=== PATIENT | female | born 1990 | race Caucasian/White ===

== ENCOUNTER → 2017-09-26 09:40 | Outpatient (CLI) | payer BC, SELFPAY ==
[2017-09-26 12:35] LABS: AST(SGOT) 12 U/L (15-37); Alanine Aminotransfer ALT/SGPT 18 U/L (13-56); Albumin, Serum 3.9 g/dL (3.2-5.0); Alkaline Phosphatase 93 U/L (45-117); CRP 4.97 mg/L (0.0-3.0); Globulin 3.7 g/dL (2.2-4.2); Lipase 120 U/L (73-393); Protein, Total 7.6 g/dL (6.4-8.2)
[2017-09-27 16:09] LABS: Endomysial Antibody IgA Negative (Negative)
[2017-09-28 12:39] LABS: Immunoglobulin A 103 mg/dL (87-352); t-Transglutaminase IgA <2 U/mL (0-3)
== END ==
PROVIDERS: Family Provider Family Medicine; PCP Family Medicine; Visit Provider Internal Medicine Gastroenterology
DX: R10.9 Unspecified abdominal pain (principal); R11.0 Nausea
CPT/HCPCS: 36415; 80076; 82784; 83516; 83690; 86140; 86255

== ENCOUNTER → 2017-11-19 09:24 | Outpatient (CLI) | payer BC, SELFPAY ==
--- NOTE | 2017-11-19 09:26 | NM_ITS ---
CLINICAL: 67-year-old female with reported history of chronic nausea. SEMI-SOLID PHASE 99m Tc SULFUR COLLOID GASTRIC EMPTYING STUDY COMPARISON: CT of the abdomen-pelvis report of 03/08/2017 FINDINGS: The patient was administered 1.0 mCi of 99m Tc sulfur colloid mixed with oatmeal and consumed per os. Image acquisitions in the anterior-posterior projections for a total of 90 minutes. There is prompt visualization of the stomach. There is no gastroesophageal reflux identified. The T1/2 linear fit was calculated to be 42.14 minutes, (Normal: 12-56 minutes). NM/Gastric Emptying Study IMPRESSION: 1. NORMAL 99m Tc sulfur colloid semi-solid phase (oatmeal) gastric emptying imaging examination. A. There is normal and preserved semi-solid phase gastric emptying compared to normal controls with maintained first order kinetics throughout all components of the examination. (Rachel et al, J Nucl Med Tech 38: 186, 2010). Electronically Signed: Steve Garcia DO at 20:00 EDT Tel , Service support ,
== END ==
PROVIDERS: Family Provider Family Medicine; PCP Family Medicine; Visit Provider Internal Medicine Gastroenterology
DX: R11.2 Nausea with vomiting, unspecified (principal); R10.9 Unspecified abdominal pain
CPT/HCPCS: 78264; A9541

== ENCOUNTER → 2017-11-26 09:29 | Outpatient (CLI) | payer BC, SELFPAY ==
[2017-11-26 13:01] LABS: hCG Titer Quant., Serum 140 mIU/mL (<9 non-preg)
== END ==
PROVIDERS: Family Provider Family Medicine; PCP Family Medicine; Visit Provider Family Medicine
DX: Z34.90 Encounter for supervision of normal pregnancy, unspecified, unspecified trimester (principal)
CPT/HCPCS: 36415; 84702

== ENCOUNTER → 2017-12-24 21:28 | Outpatient (CLI) | payer BC, SELFPAY ==
[2017-12-24 23:22] LABS: Chlamydia Trachomatis by PCR Negative (Negative); Neisserai gonorrhoeae by PCR Negative (Negative); Probe Check PASS; Sample Adequacy Control PASS; Specimen Processing Control PASS
[2017-12-28 11:52] LABS: HPV Reflexed? NOT INDICATED
== END ==
PROVIDERS: Family Provider Family Medicine; PCP Family Medicine; Visit Provider Obstetrics & Gynecology
DX: Z12.4 Encounter for screening for malignant neoplasm of cervix (principal); Z34.90 Encounter for supervision of normal pregnancy, unspecified, unspecified trimester
CPT/HCPCS: 87086; 87088; 87186; 87491; 87591; 88175; G0145

== ENCOUNTER → 2018-01-04 11:53 | Outpatient (CLI) | payer BC, SELFPAY ==
[2018-01-04 12:37] LABS: Absolute Lymphocyte Count 1.45 X10^3/ul (0.83-4.51); Absolute Neutrophil Count 4.5 X10^3/uL (2.0-7.7); Basophil# 0.02 X10^3/uL; Basophil% 0.3 % (0-1); Eosinophil# 0.08 X10^3/uL; Eosinophils% 1.2 % (0-5); Hematocrit 40.8 % (37-47); Hemoglobin 13.8 g/dl (12.0-15.0); Lymphocyte # 1.45 X10^3/ul (4.0); Lymphocyte % 21.8 % (19-41); Mean Corp Hgb Conc 33.8 g/gl (32-36); Mean Corpuscular Hgb 29.9 pg (27.0-32.0); Mean Corpuscular Volume 88.5 fL (81-99); Monocyte# 0.59 X10^3/uL; Monocyte% 8.9 % (0-10); Neutrophil # 4.48 X10^3/uL (2.7-7.7); Neutrophil % 67.5 % (47-70); Platelet Count 271 K/mm3 (150-450); RBC Distribution Width CV 12.1 % (11.6-14.6); RBC Distribution Width SD 38.6 fl (35.1-43.9); Red Blood Count 4.61 M/mm3 (4.2-5.4); White Blood Count 6.6 K/mm3 (4.4-11.0)
[2018-01-04 12:38] LABS: POSITIVE COUNT NO; POSITIVE DIFFERENTIAL NO; POSITIVE MORPHOLOGY NO
[2018-01-04 14:00] LABS: HIV - WCH Non-Reactive (Nonreactive); Rubella IgG 37.8 IU/mL
[2018-01-05 09:08] LABS: HEPATITIS B SURFACE AG Negative (Negative)
[2018-01-11 02:28] LABS: Rapid Plasmin Reagin (RPR) NONREACTIVE (NONREACTIVE)
== END ==
PROVIDERS: Family Provider Family Medicine; PCP Family Medicine; Visit Provider Obstetrics & Gynecology
DX: Z34.90 Encounter for supervision of normal pregnancy, unspecified, unspecified trimester (principal)
CPT/HCPCS: 36415; 85025; 86592; 86703; 86762; 86850; 86900; 87340

== ENCOUNTER → 2018-01-08 10:43 | Outpatient (CLI) | payer BC, SELFPAY ==
[2018-01-08 11:15] VITALS: BP 106/72; PULSE 83; RESP 16; TEMP 37.1; O2SAT 97
[2018-01-08] MEDS: Ondansetron 4 MG/2 ML Vial IV (11:18)
[2018-01-08] MEDS: Dextrose 5%-Lactated Ringers 1,000 ML 999 ML IV (11:18)
[2018-01-08] MEDS: proMETHazine 25 MG/ML Syringe 12.5 MG IV (12:18)
== END ==
PROVIDERS: Family Provider Family Medicine; PCP Family Medicine; Visit Provider Obstetrics & Gynecology
DX: E86.0 Dehydration (principal)
CPT/HCPCS: 96361; 96374; 96375; A4216; J2405

== ENCOUNTER → 2018-01-25 14:17 | Outpatient (CLI) | payer BC, SELFPAY | PROVIDERS: Family Provider Family Medicine; PCP Family Medicine; Referring Provider Obstetrics & Gynecology; Visit Provider Obstetrics & Gynecology | DX: O23.40 Unspecified infection of urinary tract in pregnancy, unspecified trimester (principal); Z3A.00 Weeks of gestation of pregnancy not specified | CPT/HCPCS: 87086; 87088; 87186 ==

== ENCOUNTER → 2018-02-15 12:01 | Outpatient (CLI) | payer BC, SELFPAY ==
[2018-02-15] MEDS: Dextrose 5%-Lactated Ringers 1,000 ML 999 ML IV (12:23)
[2018-02-15 12:24] VITALS: BP 117/72; PULSE 114; RESP 16; TEMP 36.9; O2SAT 98; BMI 29.2
[2018-02-15] MEDS: Ondansetron 4 MG/2 ML Vial IV (12:34)
== END ==
PROVIDERS: Family Provider Family Medicine; PCP Family Medicine; Referring Provider Obstetrics & Gynecology; Visit Provider Obstetrics & Gynecology
DX: E86.0 Dehydration (principal)
CPT/HCPCS: 96361; 96374; 96375; A4216; J2405

== ENCOUNTER → 2018-04-05 12:26 | Outpatient (CLI) | payer BC, SELFPAY ==
[2018-04-05 11:56] VITALS: BMI 31.7
== END ==
PROVIDERS: Family Provider Family Medicine; PCP Family Medicine; Referring Provider Obstetrics & Gynecology; Visit Provider Obstetrics & Gynecology
DX: Z36.9 Encounter for antenatal screening, unspecified (principal)
CPT/HCPCS: 36415

== ENCOUNTER → 2018-04-27 08:05 | Outpatient (CLI) | payer BC, SELFPAY ==
[2018-04-05 11:56] VITALS: BMI 31.7
== END ==
PROVIDERS: Family Provider Family Medicine; PCP Family Medicine; Referring Provider Obstetrics & Gynecology; Visit Provider Obstetrics & Gynecology
DX: O99.89 Other specified diseases and conditions complicating pregnancy, childbirth and the puerperium (principal); Z20.821 Contact with and (suspected) exposure to Zika virus
CPT/HCPCS: 36415

== ENCOUNTER → 2018-05-06 14:22 | Outpatient (CLI) | payer BC, SELFPAY ==
[2018-05-06 14:13] VITALS: BMI 31.7
[2018-05-06 15:20] LABS: Glucose Challenge Gest 1H 50g 152 mg/dL (70-140)
[2018-05-06 16:42] LABS: Absolute Lymphocyte Count 1.41 X10^3/ul (0.83-4.51); Absolute Neutrophil Count 9.1 X10^3/uL (2.0-7.7); Basophil# 0.02 X10^3/uL; Basophil% 0.2 % (0-1); Eosinophil# 0.26 X10^3/uL; Eosinophils% 2.2 % (0-5); Hematocrit 35.6 % (37-47); Hemoglobin 11.6 g/dl (12.0-15.0); Lymphocyte # 1.41 X10^3/ul (4.0); Lymphocyte % 12.1 % (19-41); Mean Corp Hgb Conc 32.6 g/gl (32-36); Mean Corpuscular Hgb 29.7 pg (27.0-32.0); Mean Platelet Vol. 10.4 fl (6.2-12.0); Monocyte# 0.75 X10^3/uL; Monocyte% 6.4 % (0-10); Neutrophil # 9.11 X10^3/uL (2.7-7.7); Neutrophil % 78.2 % (47-70); Platelet Count 235 K/mm3 (150-450); RBC Distribution Width CV 12.8 % (11.6-14.6); RBC Distribution Width SD 42.2 fl (35.1-43.9); Red Blood Count 3.91 M/mm3 (4.2-5.4); White Blood Count 11.7 K/mm3 (4.4-11.0)
[2018-05-06 16:49] LABS: POSITIVE COUNT NO; POSITIVE DIFFERENTIAL NO; POSITIVE MORPHOLOGY NO
== END ==
PROVIDERS: Family Provider Family Medicine; PCP Family Medicine; Visit Provider Nurse Practitioner Women's Health
DX: O99.89 Other specified diseases and conditions complicating pregnancy, childbirth and the puerperium (principal); R82.71 Bacteriuria
CPT/HCPCS: 36415; 82950; 85025; 87086; 87088

== ENCOUNTER → 2018-05-17 06:57 | Outpatient (CLI) | payer BC, SELFPAY ==
[2018-05-06 14:13] VITALS: BMI 31.7
[2018-05-07 15:34] VITALS: BMI 31.7
[2018-05-17 09:06] LABS: Glucose GTT-Gestation. Fasting 75 mg/dL (<105)
[2018-05-17 09:08] LABS: Glucose GTT-Gestational 1 Hr 160 mg/dL (<190)
[2018-05-17 10:20] LABS: Glucose GTT-Gestational 2 Hr 110 mg/dL (<165)
[2018-05-17 11:08] LABS: Glucose GTT-Gestational 3 Hr 102 L (<145)
--- OUTSIDE RECORDS SUMMARY | 2018-07-21 14:04 | XMS RPT_ITS ---
:1990 Author Organization [place] Support Name Relationship Address Phone MANINDER WEBB Unavailable [address] + [place] [address] REDWOOD Unavailable [address] + [place] [address] JOZEF LE Unavailable Unavailable + MANINDER WEBB Unavailable [address] + [place] [address] REDWOOD Unavailable [address] + [place] [address] JOZEF LE Unavailable Unavailable + TRACEY MANINDER Unavailable [address] + [place] [address] REDWOOD Unavailable [address] + [place] [address] JOZEF LE Unavailable . + [place] [address] TRACEY MANINDER Unavailable [address] + [place] [address] REDWOOD Unavailable [address] + [place] [address] JOZEF LE Unavailable Unavailable + [place] [address] TRACEY MANINDER Unavailable [address] + [place] [address] REDWOOD Unavailable [address] + [place] [address] JOZEF LE Unavailable Unavailable + [place] [address] MANINDER WEBB Unavailable [address] + [place] [address] REDWOOD Unavailable [address] + [place] [address] MIMI, JOZEF Unavailable . + [place] [address] BENEDICT, SOPHIE Unavailable [address] + [place] [address] BENEDICT, MANINDER Unavailable [address] + [place] [address] REDWOOD Unavailable [address] + [place] [address] JOZEF LE Unavailable . + [place] [address] BENEDICT, MANINDER Unavailable [address] + [place] [address] REDWOOD Unavailable [address] + [place] [address] MIMI JOZEF Unavailable Unavailable + [place] [address] BENEDICT, MANINDER Unavailable [address] + [place] [address] REDWOOD Unavailable [address] + [place] [address] MIMIJOZEF Unavailable Unavailable + [place] [address] BENEDICT, MANINDER Unavailable [address] + [place] [address] REDWOOD Unavailable [address] + [place] [address] MIMIJOZEF Unavailable . + [place] [address] BENEDICT, SOPHIE Unavailable [address] + [place] [address] BENEWILFRIDCT, MANINDER Unavailable [address] + [place] [address] REDWOOD Unavailable [address] + [place] [address] MIMIJOZEF Unavailable Unavailable + BENEDICT, MANINDER Unavailable [address] + [place] [address] REDWOOD Unavailable [address] + [place] [address] MIMI JOZEF Unavailable Unavailable + BENEWILFRIDCT, MANINDER Unavailable [address] + [place] [address] REDWOOD Unavailable [address] + [place] [address] JOZEF LE Unavailable . + [place] [address] BENEDICT, MANINDER Unavailable [address] + [place] [address] REDWOOD Unavailable . + [place] [address] JOZEF LE Unavailable Unavailable + [place] [address] BENEDICT, MANINDER Unavailable [address] + [place] [address] XIOMARALISSETTEJOSUÉ Unavailable . + [place] [address] REDWOOD Unavailable / + [place] [address] BENEDICT, MANINDER Unavailable [address] + [place] [address] REDWOOD Unavailable / + [place] [address] BENEDICT, MANINDER Unavailable [address] + [place] [address] REDWOOD Unavailable / + [place] [address] BENEDICT, MANINDER Unavailable [address] + [place] [address] REDWOOD Unavailable / +/ [place] / Care Team Providers Name Role Phone ELIZABETH SALEH Attending Unavailable NANCY HARPER Referring Unavailable NO PRIMARY CAREMD Primary Care Unavailable JOSUÉ YEAGER Attending Unavailable NANCY HARPER Referring Unavailable NO PRIMARY CARE, Primary Care Unavailable LADAN ALEXANDER Attending Unavailable Nancy Harper Attending Unavailable Nancy Harper Referring Unavailable Alejandro Major Primary Care Unavailable Inez Arizmendi Attending Unavailable Pedrito, Alejandro Referring Unavailable Kyleigh, Molly Attending Unavailable Major, Alejandro Primary Care Unavailable Inez Arizmendi Attending Unavailable Kyleigh, Molly Referring Unavailable Major, Alejandro Primary Care Unavailable Vamsi Lopez Attending Unavailable Jessica, Vamsi Referring Unavailable Major, Alejandro Primary Care Unavailable Jessica, Vamsi Attending Unavailable Jessica, Vamsi Referring Unavailable Major, Alejandro Primary Care Unavailable Major, Alejandro Attending Unavailable Major, Alejandro Primary Care Unavailable Marcanthony, Nancy Attending Unavailable Major, Alejandro Referring Unavailable Major, Alejandro Primary Care Unavailable Marcanthony, Nancy Attending Unavailable Major, Alejandro Primary Care Unavailable Marcanthony, Nancy Referring Unavailable Marcanthony, Nancy Attending Unavailable Marcanthony, Nancy Referring Unavailable Major, Alejandro Primary Care Unavailable MaxJudy Attending Unavailable ANYA HOYT Referring Unavailable Major, Alejandro Primary Care Unavailable ANYA HOYT Consulting Unavailable Marcanthony, Nancy Attending Unavailable Marcanthony, Nancy Referring Unavailable Major, Alejandro Primary Care Unavailable Marcanthony, Nancy Attending Unavailable Major, Alejandro Referring Unavailable Marcanthony, Nancy Attending Unavailable Marcanthony, Nancy Referring Unavailable Major, Alejandro Primary Care Unavailable Marcanthony, Nancy Attending Unavailable Marcanthony, Nancy Referring Unavailable Major, Alejandro Primary Care Unavailable ANYA HOYT Consulting Unavailable Marcanthony, Nancy Attending Unavailable Major, Alejandro Referring Unavailable Marcanthony, Nancy Attending Unavailable Major, Alejandro Referring Unavailable Marcanthony, Nancy Attending Unavailable Marcanthony, Nancy Referring Unavailable Major, Alejandro Primary Care Unavailable PROBLEMS PROBLEMS DATE TYPE CONDITION / CODE ATTENDING STATUS SOURCE 05/06/2018 Unknown O99.89 - Other Kyleigh, Inez Active [facility] specified diseases Community and conditions Hospital complicating Repository , childbirth and the puerperium / O99.89(ICD-10) 05/06/2018 Unknown R82.71 - Kyleigh, Inez Active [facility] Bacteriuria / Community R82.71(ICD-10) Hospital Repository 05/06/2018 Unknown Z34.90 - Encounter Walton, Inez Active [facility] for supervision of Community normal , Hospital unspecified, Repository unspecified trimester / Z34.90(ICD-10) 05/06/2018 Unknown Z34.92 - Encounter Kyleigh, Inez Active [facility] for supervision of Community normal , Hospital unspecified, Repository second trimester / Z34.92(ICD-10) 05/06/2018 Unknown Z3A.27 - 27 weeks Walton, Inez Active [facility] gestation of Community / Hospital Z3A.27(ICD-10) Repository 05/06/2018 Unknown G43.009 - Migraine Walton, Inez Active [facility] without aura, not Community intractable, Hospital without status Repository migrainosus / G43.009(ICD-10) 04/12/2018 Unknown Z36.9 - Encounter Marcanthony, Active [facility] for [facility] screening, Hospital unspecified / Repository Z36.9(ICD-10) 04/05/2018 Unknown Z3A.22 - 22 weeks Marcanthony, Active [facility] gestation of [facility] / Hospital Z3A.22(ICD-10) Repository 02/26/2018 Unknown Z23 - Encounter Marcanthony, Active [facility] for immunization / [facility] Z23(ICD-10) Hospital Repository 02/26/2018 Unknown Z3A.17 - 17 weeks Marcanthony, Active [facility] gestation of [facility] / Hospital Z3A.17(ICD-10) Repository 02/15/2018 Active Other specified DULLE, LADAN Active [facility] related MELINDA Other [facility] conditions, second Repository trimester / O26.892(ICD-10) 02/15/2018 Active Unspecified DULLE, LADAN [facility] abdominal pain / MELINDA Other [facility] R10.9(ICD-10) Repository 02/15/2018 Active Nausea with DULLE, LADAN Active [facility] vomiting, MELINDA Other [facility] unspecified / Repository R11.2(ICD-10) 02/15/2018 Active Nasal congestion / DULLE, LADAN Active [facility] R09.81(ICD-10) MELINDA Other [facility] Repository 02/15/2018 Active Cough / DULLE, LADAN Active [facility] R05(ICD-10) MELINDA Other [facility] Repository 01/25/2018 Unknown O23.40 - Marcanthony, Active [facility] Unspecified [facility] infection of Hospital urinary tract in Repository , unspecified trimester / O23.40(ICD-10) 12/25/2017 Unknown Z12.4 - Encounter Marcanthony, Active [facility] for screening for [facility] malignant neoplasm Hospital of cervix / Repository Z12.4(ICD-10) 11/19/2017 Unknown R11.2 - Nausea Vamsi Lopez Active [facility] with vomiting, Community unspecified / Hospital R11.2(ICD-10) Repository 11/19/2017 Unknown R10.9 - Vamsi Lopez Active [facility] Unspecified Community abdominal pain / Hospital R10.9(ICD-10) Repository PROCEDURES PROCEDURES No Procedure Records FoundRESULTS RESULTS GESTATIONAL GTT 3HR Collected: 05/17/2018 Status: F Source: [place] 100G 7:07 AM [facility] REPOSITORY Order Comment: Is Patient Fasting? N TYPE CODE TESTS RESULT OUT OF RANGE REFERENCE UNITS LAB L501.0650 <105 mg/dL Normal GLU 75 GTT-FASTING Result Comment: GLUCOSE TOLERANCE TEST FOR Reference Interval GESTATIONAL DIABETES Fasting <105 mg/dL 1 hour <190 mg/dl 2 hour <165 mg/dl 3 hour <145 mg/dl LAB L501.0660 <190 mg/dL Normal GLU GTT- 1HR 160 LAB L501.0670 <165 mg/dL Normal GLU GTT- 2HR 110 LAB L501.0680 <145 L Normal GLU GTT- 3HR 102 Performed By: #### L500.4710 #### [facility] [address], [address] Observed: 05/06/2018 Status: F Source: [place] CULTURE, URINE 6:18 PM [facility] REPOSITORY Urine Culture Below infection level. ORGANISM 1: Mixed Gram Positive Organisms [place] Count 1000-10,000 Performed By: #### M100.0650 #### [facility] [address] [place], [address] GLUCOSE CHALLENGE GEST Collected: 05/06/2018 Status: F Source: [place] 1H 50G 2:40 PM [facility] REPOSITORY TYPE CODE TESTS RESULT OUT OF RANGE REFERENCE UNITS LAB L501.0250 70-140 mg/dL High GLU GEST 152 50g 1H Performed By: #### L501.0250 #### [facility] [address] [facility], [address] CBC W/DIFF, AUTOMATED Collected: 05/06/2018 Status: F Source: [place] 2:40 PM [facility] REPOSITORY TYPE CODE TESTS RESULT OUT OF RANGE REFERENCE UNITS LAB L100.1000 4.4-11.0 K/mm3 High WBC 11.7 LAB L100.1200 4.2-5.4 M/mm3 Low RBC 3.91 LAB L100.1300 12.0-15.0 g/dl Low HGB 11.6 LAB L100.1400 37-47 % Low HCT 35.6 LAB L100.1500 81-99 fL Normal MCV 91.0 LAB L100.1600 27.0-32.0 pg Normal MCH 29.7 LAB L100.1700 32-36 g/gl Normal MCHC 32.6 LAB L100.1810 11.6-14.6 % Normal RDW CV 12.8 LAB L100.1820 35.1-43.9 fl Normal RDW SD 42.2 LAB L100.1900 150-450 K/mm3 Normal PLT 235 LAB L100.2000 6.2-12.0 fl Normal MPV 10.4 LAB L100.2100 47-70 % High NEUT% 78.2 LAB L100.2200 19-41 % Low LY% 12.1 LAB L100.2300 0-10 % Normal MONO% 6.4 LAB L100.2400 0-5 % Normal EO% 2.2 LAB L100.2500 0-1 % Normal BASO% 0.2 LAB L100.2550 0.0-0.9 % Normal IM GRAN % 0.900 Result Comment: IG% - Immature Granulocytes (promyelocytes, myelocytes and metamyelocytes) > 1% indicates that a LEFT SHIFT is Present. LAB L100.2620 2.0-7.7 X10 3/uL High Absolute Neut 9.1 LAB L100.2720 0.83-4.51 X10 3/ul Normal Absolute Lymph 1.41 Performed By: #### L100.0100 #### [facility] [address] [place], [place], [address] SUPERVISOR FLOOR ASSEMBLY OFFICE VISIT Observed: 05/06/2018 Status: F Source: [place] REPORT 2:17 PM [facility] REPOSITORY [facility] [address] [place] [address] OFFICE VISIT Date of Service: 05/06/18 MR#: [id number] Acct: [id number] Name: SOPHIE WEBB Rep #: [id number] : 1990 Provider: JAYCEE Arizmendi Age/Sex: 27/F Location: [facility] Status: Signed with Addenda ADDENDUM by Karla Marino on 05/06/18 at 1417 OFFICE PROCEDURES Office Procedure Documentation entered by Karla Marino 05/06/18 14:17: Immunizations Boostrix Tdap Performing Provider: LESLI Murrieta Administered by: Karla Marino on 05/06/18 14:15 Dose Route Admin Location Lot Number Expiration Date NDC Insurance Defense Attorney 0.5 mL IM Right Deltoid [id number] 04/13/20 [id number] [employer] VIS Given Date VIS Publication Date 05/06/18 06/23/14 Eligibility Eligibility Date 05/06/181416 <Electronically signed by Karla Marino > Date Karla Marino cc: * Signed Intake Vital Signs05/06/18 Height 5 ft 2 in 05/06/18 Weight: 181 lb 05/06/18 Body Mass Index (BMI) 33.0 05/06/18 Blood Pressure 128/70 H Intake Visit Reasons: 26 WEEKS Bed Bug Exterminator Required: No Accompanied by: Is patient in pain?: No Allergies No Known Allergies Allergy (Verified 05/06/18 13:51) Medications docosahexanoic acid 200 mg capsule mg PO 12/24/17 [History Confirmed 05/06/18] promethazine 12.5 mg tablet 12.5 mg PO Q6H PRN #90 tab 01/08/18 [Rx Confirmed 05/06/18] Last Menstral Period: 10/29/17 Zika: Zika virus screening: Negative : No PFSH PFSH Medical History Migraines (Chronic) Family History Father Hypertension Aunt Breast cancer Grandmother Heart disease Social History Smoking Status: Current every day smoker alcohol intake: never substance use type: does not use caffeine: Yes what type of physical activity do you participate in: none seatbelt use: always do you feel safe at home: Yes additional social history: - Maninder-Carney 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 OB Visit ELISA Calculator Estimated Delivery Date 08/05/18 Based on LMP (certain) 10/29/17 Current WG 27w 0d Number 1 Expected Delivery Route/Plan Specific Issue/Plans flu vaccine: given tdap vaccine: given rhogam: NA LARC form signed: [] labor support person: Maninder pain management: epidural cut cord/dad catch: : yes PP control planned: [] discussed possible routes of delivery and associated risks: [] special requests: [] Initial Weight: 160 lb Date Weight BP Urine PrFHR FuHt Pres MoCTX DilationFetal StVisit NoProviderComments E ot v te GA G Effac lucose ed Visit Notes Visit Date: 05/06/18 No VB, LOF. Doing well Inez Arizmendi NP-Mellissa on 05/06/18 Visit Date: 04/05/18 no vb cramping Nancy Harper MD on 04/05/18 Visit Date: 02/26/18 no vb cramping low back pain Nancy Harper MD on 02/26/18 Visit Date: 01/25/18 n vb crmaping, feeling better Nancy Harper MD on 01/26/18 Visit Date: 12/24/17 No visit notes to display ACOG First Trimester First Trimester: Desire for , Alcohol, Tobacco Cessation, Illicit/Recreational Drug/Substance Use, Intimate Partner Violence, Barriers to care, Unstable Housing, Communication Barriers, Environmental/Work Hazards, Anticipated Course of Care, Toxoplasmosis Precations, Use of Any medications, Sexual activity, Exercise, Dental Care, Sauna/Hot tub use, Seat Belt use, Childbirth classes/Hospital facilities, , Travel, Indications for US and Screening for Aneuploidy Diagnostics Diagnostics Labs Blood Type A POSITIVE 01/04/18 Antibody Screen NEGATIVE 01/04/18 Hct 40.8 % (37-47) 01/04/18 Hgb 13.8 g/dl (12.0-15.0) 01/04/18 Rubella IgG Antibody 37.8 IU/mL 01/04/18 RPR NONREACTIVE (NONREACTIVE) 01/04/18 Hep Bs Antigen Negative (Negative) 01/04/18 Chlam trachomat DNA PCR Negative (Negative) 12/24/17 N.gonorrhoeae DNA (PCR) Negative (Negative) 12/24/17 Miscellaneous Test 04/27/18 Details: HIV: Urine Culture: Sequential Screen: NIPT Screen: Results [id number] Office Urine Glucose Negative Last Edit by Karla Marino on 05/06/18 14:05 Office Urine Protein Negative Last Edit by Karla Marino on 05/06/18 14:05 Assessment AND Plan Problems 1. Normal in second trimester Z34.92 PRR ELISA 08/05/18 girl pedro Maninder 2. 27 weeks gestation of Z3A.27 NIPT negative. carrier screening declined. NTD screening ordered. Anatomy US normal. AFP negative 3. Asymptomatic bacteriuria during in first trimester O99.89; R82.71 x2, s/p macrobid. 4. Migraine without aura and without status migrainosus, not intractable G43.009 Plan Orders placed: 28 week labs, tdap, urine culture Reviewed of labor precautions, movement/kick counts ACOG trimester education reviewed and updated See problem list details for updated plan of care Gestational age appropriate handout given RTO: 3 weeks Orders Orders: Coding Level of Care Code OB Routine Diagnoses Normal in second trimester Z34.92 Trimester: second trimester 27 weeks gestation of Z3A.27 Weeks of gestation: 27 weeks Asymptomatic bacteriuria during in first trimester O99.89; R82.71 Migraine without aura and without status migrainosus, not intractable G43.009 Migraine type: without aura Status migrainosus presence: without status migrainosus Intractability: not intractable 05/06/18 1414 <Electronically signed by Inez BALLESTEROS> Date Inez BALLESTEROS Cosigner Signature: Date (if applicable) CC: MISCELLANEOUS LAB Collected: 04/27/2018 Status: F Source: [place] PROCEDURE 8:12 AM [facility] REPOSITORY Order Comment: Comments: [id number] Zika Virus Comprehensive Profile, JAYMIE, Comments: [id number] Zika virus comprehensive serum and urine Test(s) Ordered: [id number] Zika Virus Comprehensive Profile, JAYMIE, TYPE CODE TESTS RESULT OUT OF RANGE REFERENCE UNITS LAB L801.1541 Normal [facility] LAB TEST Result Comment: TEST RESULT LIMITS Zika Virus JAYMIE Conprehensive Zika Virus JAYMIE, Serum Negative Negative Zika Virus JAYMIE, Urine Negative Negative TESTING PERFORMED AT [facility]. ORIGINAL REPORT ON FILE IN LAB CONTAINS ADDITIONAL TEST SITE INFORMATION. Performed By: #### L801.1541 #### [facility] [address] [place], [place], [address] MISCELLANEOUS LAB Collected: 04/05/2018 Status: F Source: [place] PROCEDURE 12:30 PM [facility] REPOSITORY Order Comment: Comments: MSAFP [id number] SER/RT Test(s) Ordered: MSAFP [id number] SER/RT TYPE CODE TESTS RESULT OUT OF RANGE REFERENCE UNITS LAB L801.1541 Normal [facility] LAB TEST Result Comment: TEST RESULT UNITS REF INTERVAL AFP, Serum, Open Spina Bifida Results Report Test Results: *Screen Negative* Gest. Age on Collection Date 22.6 weeks Gestat. Age Based On As provided Recalculations are not recommended when gestational dating by LMP and ultrasound are within 10 days. M[age] ELISA 26.7 yr Race Weight 173 lbs Insulin Dep Diabetes Not provided. Multiple Gestation No AFP Value 62.3 ng/mL AFP MoM 0.94 OSBR [place] 1 [place] [id number] Interpretation Interpretation: Screen Negative This result is screen negative for OSB. The AFP MoM calculated is based on the gestational age provided. MS-AFP can identify up to 80% of open neural tube defects. Closed neural tube defects and some open defects may not be detected by this test. This test does not screen for Down Syndrome or Trisomy 18. If screening for Down Syndrome or Trisomy 18 is desired, contact Genetic Customer Services to discuss available options. The [place] [employer] recommends amniocentesis be offered to women age 35 and older. Comment: Coleen Dodge, Ph.D., [facility] Principal Genetics Rn Field Case Manager References: Available Upon Request. Multiples Of Median Cutoffs For AFP Elevations Hoover 2.5 Black 2.8 IDD 2.0 Twins 4.5 Abbreviation Definitions IDD - Insulin Dep Diabetes OSBR - Open Spina Bifida Risk For further inquiries contact [facility] Services at [phone]. TESTING PERFORMED AT [facility]. ORIGINAL REPORT ON FILE IN LAB CONTAINS ADDITIONAL TEST SITE INFORMATION. Performed By: #### L801.1541 #### [facility] [address] [place], [place], [address] SUPERVISOR FLOOR ASSEMBLY OFFICE VISIT Observed: 04/05/2018 Status: F Source: [place] REPORT 12:10 PM [facility] REPOSITORY [facility] [address] [place] [address] OFFICE VISIT Date of Service: 04/05/18 MR#: [id number] Acct: [id number] Name: SOPHIE WEBB Rep #: [id number] : 1990 Provider: Nancy Harper MD Age/Sex: 27/F Location: [facility] Status: Signed Intake Vital Signs04/05/18 Height 5 ft 2 in 04/05/18 Weight: 173 lb 8 oz 04/05/18 Body Mass Index (BMI) 31.7 04/05/18 Blood Pressure 120/64 Intake Visit Reasons: 22 weeks Bed Bug Exterminator Required: No Is patient in pain?: No Allergies No Known Allergies Allergy (Verified 04/05/18 11:57) Medications docosahexanoic acid 200 mg capsule mg PO 12/24/17 [History Confirmed 04/05/18] promethazine 12.5 mg tablet 12.5 mg PO Q6H PRN #90 tab 01/08/18 [Rx Confirmed 04/05/18] Last Menstral Period: 10/29/17 Zika: Zika virus screening: Negative : No Nurse's Note: Pt. states she has been coughing and now has green drainage. She also states that she is going on a cruise before her next appt. which is out of the country and to [place]. 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 OB Visit ELISA Calculator Estimated Delivery Date 08/05/18 Based on LMP (certain) 10/29/17 Current WG 22w 4d Number 1 Expected Delivery Route/Plan Specific Issue/Plans flu vaccine: given tdap vaccine: [] rhogam: [] LARC form signed: [] labor support person: [] pain management: [] cut cord/dad catch: [] : [] PP control planned: [] discussed possible routes of delivery and associated risks: [] special requests: [] Initial Weight: 160 lb Date Weight BP Urine PrFHR FuHt Pres MoCTX DilationFetal StVisit NoProviderComments E ot v te GA G Effac lucose ed Visit Notes Visit Date: 04/05/18 no vb cramping Nancy Harper MD on 04/05/18 Visit Date: 02/26/18 no vb cramping low back pain Nancy Harper MD on 02/26/18 Visit Date: 01/25/18 n vb crmaping, feeling better Nancy Harper MD on 01/26/18 Visit Date: 12/24/17 No visit notes to display ACOG First Trimester First Trimester: Desire for , Alcohol, Tobacco Cessation, Illicit/Recreational Drug/Substance Use, Intimate Partner Violence, Barriers to care, Unstable Housing, Communication Barriers, Environmental/Work Hazards, Anticipated Course of Care, Toxoplasmosis Precations, Use of Any medications, Sexual activity, Exercise, Dental Care, Sauna/Hot tub use, Seat Belt use, Childbirth classes/Hospital facilities, , Travel, Indications for US and Screening for Aneuploidy Diagnostics Diagnostics Labs Blood Type A POSITIVE 01/04/18 Antibody Screen NEGATIVE 01/04/18 Hct 40.8 % (37-47) 01/04/18 Hgb 13.8 g/dl (12.0-15.0) 01/04/18 Rubella IgG Antibody 37.8 IU/mL 01/04/18 RPR NONREACTIVE (NONREACTIVE) 01/04/18 Hep Bs Antigen Negative (Negative) 01/04/18 Chlam trachomat DNA PCR Negative (Negative) 12/24/17 N.gonorrhoeae DNA (PCR) Negative (Negative) 12/24/17 Miscellaneous Test 01/04/18 Details: HIV: Urine Culture: Sequential Screen: NIPT Screen: Results [id number] Office Urine Glucose Negative Last Edit by Suni Trinh on 04/05/18 11:56 Office Urine Protein Negative Last Edit by Suni Trinh on 04/05/18 11:56 Assessment AND Plan Problems 1. Asymptomatic bacteriuria during in first trimester O99.89; R82.71 x2, s/p macrobid. 2. 22 weeks gestation of Z3A.22 NIPT negative. carrier screening declined. NTD screening ordered. Anatomy US normal 3. Migraine without aura and without status migrainosus, not intractable G43.009 4. Normal in second trimester Z34.92 PRR ELISA 08/05/18 girl pedro Maninder Plan ACOG trimester education reviewed and updated. see problem list details for updated plan management information and see below for orders placed at this visit. [place] appropriate handout given. Orders Orders: Coding Level of Care Code OB Routine Diagnoses Asymptomatic bacteriuria during in first trimester O99.89; R82.71 22 weeks gestation of Z3A.22 Weeks of gestation: 22 weeks Migraine without aura and without status migrainosus, not intractable G43.009 Migraine type: without aura Status migrainosus presence: without status migrainosus Intractability: not intractable Normal in second trimester Z34.92 Trimester: second trimester 04/05/18 1210 <Electronically signed by Nancy Harper MD> Date Nancy Harper MD Cosigner Signature: Date (if applicable) CC: SUPERVISOR FLOOR ASSEMBLY OFFICE VISIT Observed: 02/26/2018 Status: F Source: [facility] REPORT 4:17 PM [facility] [address] [place] [address] OFFICE VISIT Date of Service: 02/26/18 MR#: [id number] Acct: [id number] Name: SOPHIE WEBB Rep #: [id number] : 1990 Provider: Nancy Harper MD Age/Sex: 27/F Location: [facility] Status: Signed Intake Vital Signs02/26/18 Height 5 ft 2 in 02/26/18 Weight: 164 lb 02/26/18 Body Mass Index (BMI) 29.9 02/26/18 Blood Pressure 114/70 Intake Visit Reasons: 17 weeks Chief Complaint: est ob Bed Bug Exterminator Required: No Is patient in pain?: No Allergies No Known Allergies Allergy (Verified 02/26/18 15:50) Medications docosahexanoic acid 200 mg capsule mg PO 12/24/17 [History Confirmed 02/26/18] promethazine 12.5 mg tablet 12.5 mg PO Q6H PRN #90 tab 01/08/18 [Rx Confirmed 02/26/18] nitrofurantoin monohydrate/macrocrystals 100 mg capsule 100 mg PO BID #14 cap 01/28/18 [Rx Confirmed 02/26/18] Last Menstral Period: 10/29/17 Zika: Zika virus screening: Negative : No PFSH PFSH Medical History Migraines (Chronic) Family History Father Hypertension Aunt Breast cancer Grandmother Heart disease Social History Smoking Status: Current every day smoker alcohol intake: never substance use type: does not use caffeine: Yes what type of physical activity do you participate in: none seatbelt use: always do you feel safe at home: Yes additional social history: - Maninder-[employer] 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 OB Visit ELISA Calculator Estimated Delivery Date 08/05/18 Based on LMP (certain) 10/29/17 Current WG 17w 1d Number 1 Expected Delivery Route/Plan Initial Weight: Not Recorded Date Weight BP Urine PrFHR FuHt Pres MoCTX DilationFetal StVisit NoProviderComments E ot v te GA G Effac lucose ed Visit Notes Visit Date: 02/26/18 no vb cramping low back pain Nancy Harper MD on 02/26/18 Visit Date: 01/25/18 n vb crmaping, feeling better Nancy Harper MD on 01/26/18 Visit Date: 12/24/17 No visit notes to display ACOG First Trimester First Trimester: Desire for , Alcohol, Tobacco Cessation, Illicit/Recreational Drug/Substance Use, Intimate Partner Violence, Barriers to care, Unstable Housing, Communication Barriers, Environmental/Work Hazards, Anticipated Course of Care, Toxoplasmosis Precations, Use of Any medications, Sexual activity, Exercise, Dental Care, Sauna/Hot tub use, Seat Belt use, Childbirth classes/Hospital facilities, , Travel, Indications for US and Screening for Aneuploidy Diagnostics Diagnostics Labs Blood Type A POSITIVE 01/04/18 Antibody Screen NEGATIVE 01/04/18 Hct 40.8 % (37-47) 01/04/18 Hgb 13.8 g/dl (12.0-15.0) 01/04/18 Rubella IgG Antibody 37.8 IU/mL 01/04/18 RPR NONREACTIVE (NONREACTIVE) 01/04/18 Hep Bs Antigen Negative (Negative) 01/04/18 Chlam trachomat DNA PCR Negative (Negative) 12/24/17 N.gonorrhoeae DNA (PCR) Negative (Negative) 12/24/17 Miscellaneous Test 01/04/18 Details: HIV: Urine Culture: Sequential Screen: NIPT Screen: Office Meds Flucelvax Quad 9685-4495 (PF) Performing Provider: Nancy Harper MD Administered by: Monet Goel on 02/26/18 15:59 Dose Route Admin Location Lot Number Expiration Date NDC Insurance Defense Attorney 60 mcg IM left arm [id number] 10/27/18 26218-178-57 SEQIRUS Assessment AND Plan Problems 1. Asymptomatic bacteriuria during in first trimester O99.89; R82.71 x2, s/p macrobid. 2. 17 weeks gestation of Z3A.17 NIPT negative. carrier screening declined. NTD screening ordered 3. Normal in second trimester Z34.92 PRR ELISA 08/05/18 girl Maninder 4. Migraine without aura and without status migrainosus, not intractable G43.009 Plan ACOG trimester education reviewed and updated. see problem list details for updated plan management information and see below for orders placed at this visit. GA appropriate handout given. Orders Orders: Medications Discontinued: Flucelvax Quad 5280-7716 (PF) (flu vac qs 2018(4 yr60 mcg (0.5 mL) IM ONCE 1 mL 0RF NS Z23 up)CD(PF)) Discontinued Reason: Office Medicat ion has been Documented as given Coding Level of Care Code OB Routine Diagnoses Asymptomatic bacteriuria during in first trimester O99.89; R82.71 17 weeks gestation of Z3A.17 Weeks of gestation: 17 weeks Normal in second trimester Z34.92 Trimester: second trimester Migraine without aura and without status migrainosus, not intractable G43.009 Migraine type: without aura Status migrainosus presence: without status migrainosus Intractability: not intractable 02/26/18 1617 <Electronically signed by Nancy Harper MD> Date Nancy Harper MD Cosigner Signature: Date (if applicable) CC: US PREG TRANSABD >14 Observed: 02/15/2018 Status: F Source: [facility] 8:57 PM CLINIC OTHER CAMPUS REPOSITORY * * *Final Report* * * DATE OF EXAM: Feb 15 2018 8:57PM U 1036 - US PREG TRANSABD >14 WEEKS LTD / PROCEDURE REASON: Pelvic pain, positive beta-HCG, loan review manager etiol suspected * * * * Physician Interpretation * * * * PROCEDURE: US PREG TRANSABD >14 WEEKS LTD INDICATION: Pelvic pain, positive beta-HCG, loan review manager etiol suspected TECHNIQUE: Multiple sonographic images of the gravid uterus were obtained and stored in a permanent archive. COMPARISON: None. FINDINGS: The uterus measures 14.5 x 7.4 x 10.9 cm. There is a single intrauterine gestational sac with a single fetus. The fetus is in the cephalic position. Placenta is fundal. Amniotic fluid volume is normal with an JUAN of 8.1 cm. heart rate is detected at 153 bpm. measurements correlate with a gestational age of 15 weeks and 4 days +/- 1 week. anatomic survey was not performed. Right maternal ovary contains an 11 mm cyst and demonstrates flow. Right maternal ovary was not identified. No adnexal masses or fluid collections. IMPRESSION: Single living intrauterine fetus with an estimated gestational age of 15 weeks and 4 days. Senior Account Director: ROSEMARY Transcribe Date/Time: Feb 15 2018 9:18P Dictated by : KYRA DÍAZ MD This examination was interpreted and the report reviewed and electronically signed by: KYRA DÍAZ MD on Feb 15 2018 9:21PM EST [id number] XR CHEST 2V FRONTAL/LAT Observed: 02/15/2018 Status: F Source: [facility] 7:58 PM CLINIC OTHER CAMPUS REPOSITORY * * *Final Report* * * DATE OF EXAM: Feb 15 2018 7:58PM MDX [id number] - XR CHEST 2V FRONTAL/LAT / PROCEDURE REASON: Cough, new onset * * * * Physician Interpretation * * * * EXAMINATION: CHEST RADIOGRAPH (2 VIEW FRONTAL and LATERAL) CLINICAL HISTORY: Cough, new onset, MQ: XC2_5 Comparison: None RESULT: Lines, tubes, and devices: None. Lungs and pleura: No consolidation. No lung mass. No pleural effusion. Cardiomediastinal silhouette: Normal cardiomediastinal silhouette. Other: No bony abnormalities. IMPRESSION: No acute radiographic abnormality. Senior Account Director: PSCJake Transcribe Date/Time: Feb 15 2018 8:01P Dictated by : PHILIP FLOWERS MD This examination was interpreted and the report reviewed and electronically signed by: PHILIP FLOWERS MD on Feb 15 2018 8:02PM EST [id number] RAPID PCR ASSAY FLU Collected: 02/15/2018 Status: F Source: [facility] 7:[address] [facility] OTHER CAMPUS REPOSITORY TYPE CODE TESTS RESULT OUT OF REFERENCE UNITS RANGE LAB FLRSRC Nasopharyngeal Specimen Swab Source LAB PCRFLA Negative for Influenza A Influenza A by RT PCR PCR LAB PCRFLB Negative for Influenza B Influenza B by RT PCR PCR Performed By: #### FLUPCR #### [facility] [address] [facility] [phone] ED NOTE Observed: 02/15/2018 Status: COMPLETED Source: [place] 7:[address] [facility] OTHER CAMPUS REPOSITORY HNO ID: [id number] Author: Cesia (Rn) ZAFAR Jett Service: (none) Author Type: Registered Nurse Type: ED Notes Filed: 02/15/2018 7:37 PM Note Text: Heart tones 148bpm CBC AND DIFFERENTIAL Collected: 02/15/2018 Status: F Source: [facility] 7:[address] [facility] OTHER CAMPUS REPOSITORY TYPE CODE TESTS RESULT OUT OF REFERENCE UNITS RANGE LAB WBC 3.70-11.00 k/uL WBC 9.63 LAB RBC 3.90-5.20 m/uL RBC 3.98 LAB HGB 11.5-15.5 g/dL Hemoglobin 12.2 LAB HCT 36.0-46.0 % Low Hematocrit 34.6 LAB MCV 80.0-100.0 fL MCV 86.9 LAB MCH 26.0-34.0 pG MCH 30.7 LAB MCHC 30.5-36.0 g/dL MCHC 35.3 LAB RDWCV 11.5-15.0 % RDW-CV 12.1 LAB PLTCT 150-400 k/uL Platelet Count 190 LAB MPV 9.0-12.7 fL MPV 10.0 LAB ANEUT % Neut% 90.0 LAB AANEUT 1.45-7.50 k/uL Abs Neut High 8.67 LAB ALYMP % Lymph% 4.4 LAB AALYMP 1.00-4.00 k/uL Low Abs Lymph 0.42 LAB AMONO % Converse% 3.7 LAB AAMONO <0.87 k/uL Abs Converse 0.36 LAB AEOS % Eosin% 1.9 LAB AAEOS <0.46 k/uL Abs Eosin 0.18 LAB ABASO % Baso% 0.0 LAB AABASO <0.11 k/uL Abs Baso <0.03 Performed By: #### CBCDIF, CMP, LIPA, MG1 #### [facility] [address] [place] [address] COMP METABOLIC PANEL Collected: 02/15/2018 Status: F Source: [facility] 7:20 PM CLINIC OTHER CAMPUS REPOSITORY TYPE CODE TESTS RESULT OUT OF REFERENCE UNITS RANGE LAB TP 6.3-8.0 g/dL Low Protein, Total 6.2 LAB ALB 3.9-4.9 g/dL Low Albumin 3.4 LAB CA 8.5-10.2 mg/dL Calcium, Total 9.1 LAB TBIL 0.2-1.3 mg/dL Bilirubin, Total 0.3 LAB ALKP 34-123 U/L Alkaline Phosphatase 68 LAB AST 13-35 U/L AST 13 LAB GLU 74-99 mg/dL Glucose 94 Result Comment: The [place] Diabetes [employer] (ADA) provides guidance for cutoff values for fasting glucose and random glucose. The ADA defines fasting as no caloric intake for at least 8 hours. Fas ting plasma glucose results between 100 to 125 mg/dL indicate increased risk for diabetes (prediabetes). Fasting plasma glucose results greater than or equal to 126 mg/dL meet the criteria for diagnosis of diabetes. In the absence of unequivocal hyperglycemia, results should be confirmed by repeat testing. In a patient with classic symptoms of hyperglycemia or hyperglycemic crisis, random plasma glucose results greater than or equal to 200 mg/dL meet the criteria for diagnosis of diabetes. Reference: Standards of Medical Care in Diabetes 2016, [place] [employer] Association. Diabetes Care. 2016.39(Suppl 1). LAB BUN 7-21 mg/dL BUN Low 6 LAB CRET 0.58-0.96 mg/dL Creatinine 0.60 LAB NA 136-144 mmol/L Sodium Low 132 LAB K 3.7-5.1 mmol/L Potassium Low 3.6 LAB CL 97-105 mmol/L Chloride 102 LAB CO2 22-30 mmol/L CO2 Low 21 LAB AGAP 9-18 mmol/L Anion Gap 9 LAB ALT 7-38 U/L ALT 10 LAB GFRAA eGFR- Amer. >60 LAB GFRNAA . eGFR-All Other Races >60 Result Comment: eGFR (Estimated GFR) Units of measure: mL/min/1.73 meters squared eGFR is derived from the reexpressed MDRD Study equation using the following parameters: serum creatinine, age, gender and race. The creatinine assay has been calibrated to be traceable to IDMS. An eGFR <60 mL/min/1.73m2 for >3 months is consistent with chronic kidney disease. Refer to KDOQI guidelines for clinical interpretation. In patients with unstable renal function, e.g. those with acute kidney injury, the eGFR may not accurately reflect actual GFR. Performed By: #### CBCDIF, CMP, LIPA, MG1 #### [facility] [address] [place] [address] LIPASE Collected: 02/15/2018 Status: F Source: [facility] 7:20 PM CLINIC OTHER CAMPUS REPOSITORY TYPE CODE TESTS RESULT OUT OF REFERENCE UNITS RANGE LAB LIPA 16-61 U/L Lipase 23 Performed By: #### CBCDIF, CMP, LIPA, MG1 #### [facility] [address] [place] [address] MAGNESIUM Collected: 02/15/2018 Status: F Source: [place] 7:[address] [facility] OTHER CAMPUS REPOSITORY TYPE CODE TESTS RESULT OUT OF REFERENCE UNITS RANGE LAB MG 1.7-2.3 mg/dL Low Magnesium 1.6 Performed By: #### CBCDIF, CMP, LIPA, MG1 #### [facility] [address] [facility] [phone] HCG, QUANTITATIVE BL Collected: 02/15/2018 Status: F Source: [place] 7:[address] [facility] REPOSITORY TYPE CODE TESTS RESULT OUT OF REFERENCE UNITS RANGE LAB HCGQT <5.0 mU/mL [place], [place] [address].0 Result Comment: QUANTITATIVE HCG NORMAL RANGES Weeks of Gestation (Weeks Since LMP) 3 Weeks (5.8-71.2 mIU/mL) 4 Weeks (9.5-750 mIU/mL) 5 Weeks (217-7138 mIU/mL) 6 Weeks (158-17639 mIU/mL) 7 Weeks (3697-662736 mIU/mL) 8 Weeks (48103-312321 mIU/mL) 9 Weeks (54444-766031 mIU/mL) 10 Weeks (01645-985017 mIU/mL) 12 Weeks (82359-978506 mIU/mL) Referenced to 4th IS of [facility] Performed By: #### HCGQT #### [facility] [address] [facility] [phone] TYPE AND SCREEN Collected: 02/15/2018 Status: F Source: [facility] 7:20 PM [facility] REPOSITORY TYPE CODE TESTS RESULT OUT OF REFERENCE UNITS RANGE LAB %ABR A ABO/RH(D) POSITIVE LAB % Antibody NEG Screen Performed By: #### TSCR #### [facility] [address] [place] [address] ED PROV NOTE Observed: 02/15/2018 Status: COMPLETED Source: [place] 7:[address] [facility] REPOSITORY HNO ID: [id number] Author: Ladan Alexander MD Service: Emergency Medicine Author Type: Physician Type: ED Provider Notes Filed: 02/15/2018 9:45 PM Note Text: ED Provider Note Patient Name: Sophie Webb SERVICE DATE: 02/15/18 History Patient presents with: Abdominal Pain Fever HPI HPI: 27-year-old female that is about 16 weeks gestation presents to the emergency department for evaluation of nausea, vomiting, fever. The patient states that she started feeling sick this morning and has had an issue with morning sickness over the last 16 weeks. The patient went to [facility] and had an IV placed and was given IV fluids as well as Phenergan and was sent home with Zofran. The patient states that the nausea is better at this point but the patient started running a fever. She had a temp of 101.7. Patient does complain of some generalized crampy of normal pain. Still having any vaginal bleeding or vaginal discharge. The patient denies any back pain or flank pain. PMH: No past medical history on file. No past surgical history on file. Medications: No current facility-administered medications on file prior to encounter. No current outpatient prescriptions on file prior to encounter. Allergies: Patient has no known allergies. Family History: No family history on file. Social History: Social History Marital status: Single Spouse name: Years of education: Number of children: Social History Main Topics Drug use: Unknown Review of Systems Constitutional: Positive for fever. Negative for chills and fatigue. HENT: Negative for congestion and rhinorrhea. Respiratory: Negative for cough, chest tightness, shortness of breath and wheezing. Cardiovascular: Negative for chest pain, palpitations and leg swelling. Gastrointestinal: Positive for abdominal pain, nausea and vomiting. Negative for diarrhea. Genitourinary: Positive for pelvic pain. Negative for dysuria and flank pain. Musculoskeletal: Negative for back pain, neck pain and neck stiffness. Skin: Negative for color change, pallor, rash and wound. Neurological: Negative for dizziness, syncope, speech difficulty, light-headedness and headaches. Hematological: Negative for adenopathy. Does not bruise/bleed easily. Psychiatric/Behavioral: Negative for agitation and confusion. All other systems reviewed and are negative. Physical Exam BP 91/73 Pulse 117 Temp (Src) 99.1 (Oral) Resp 16 Wt 160 lb (72.6kg) SpO2 95% Physical Exam Constitutional: She is oriented to person, place, and time. She appears well-developed and well-nourished. No distress. HENT: Head: Normocephalic and atraumatic. Nose: Nose normal. Mouth/Throat: Oropharynx is clear and moist. Eyes: Conjunctivae are normal. Cardiovascular: Normal rate and regular rhythm. Pulmonary/Chest: Effort normal and breath sounds normal. No respiratory distress. She has no wheezes. She has no rales. Abdominal: Soft. She exhibits no mass. There is tenderness. There is no rebound and no guarding. Musculoskeletal: Normal range of motion. She exhibits no edema, tenderness or deformity. Neurological: She is alert and oriented to person, place, and time. Skin: Skin is warm. Capillary refill takes less than 2 seconds. She is not diaphoretic. There is pallor. Psychiatric: She has a normal mood and affect. Her behavior is normal. Nursing note and vitals reviewed. Procedures MDM ED Course: Results for orders placed or performed during the hospital encounter of 02/15/18 LIPASE BLD Result Value Ref Range Lipase 23 16 - 61 U/L COMP METABOLIC PANEL Result Value Ref Range Protein, Total 6.2 (L) 6.3 - 8.0 g/dL Albumin 3.4 (L) 3.9 - 4.9 g/dL Calcium 9.1 8.5 - 10.2 mg/dL Bilirubin, Total 0.3 0.2 - 1.3 mg/dL Alkaline Phosphatase 68 34 - 123 U/L AST 13 13 - 35 U/L Glucose 94 74 - 99 mg/dL BUN 6 (L) 7 - 21 mg/dL Creatinine 0.60 0.58 - 0.96 mg/dL Sodium 132 (L) 136 - 144 mmol/L Potassium 3.6 (L) 3.7 - 5.1 mmol/L Chloride 102 97 - 105 mmol/L CO2 21 (L) 22 - 30 mmol/L Anion Gap 9 9 - 18 mmol/L ALT 10 7 - 38 U/L eGFR- >60 eGFR-All Other Races >60 . MAGNESIUM BLD Result Value Ref Range Magnesium 1.6 (L) 1.7 - 2.3 mg/dL CBC + DIFF Result Value Ref Range WBC 9.63 3.70 - 11.00 k/uL RBC 3.98 3.90 - 5.20 m/uL Hemoglobin 12.2 11.5 - 15.5 g/dL Hematocrit 34.6 (L) 36.0 - 46.0 % MCV 86.9 80.0 - 100.0 fL MCH 30.7 26.0 - 34.0 pG MCHC 35.3 30.5 - 36.0 g/dL RDW-CV 12.1 11.5 - 15.0 % Platelet Count 190 150 - 400 k/uL MPV 10.0 9.0 - 12.7 fL Neut% 90.0 % Abs Neut (ANC) 8.67 (H) 1.45 - 7.50 k/uL Lymph% 4.4 % Abs Lymph 0.42 (L) 1.00 - 4.00 k/uL Converse% 3.7 % Abs Converse 0.36 <0.87 k/uL Eosin% 1.9 % Abs Eosin 0.18 <0.46 k/uL Baso% 0.0 % Abs Baso <0.03 <0.11 k/uL URINALYSIS Result Value Ref Range Color Yellow Yellow Appearance (U) Clear Clear Glucose, Urine 500 (A) Negative mg/dL Bilirubin, Urine Negative Negative Ketones, Urine Negative Negative Specific Mammoth, Ur 1.015 1.001 - 1.029 Hemoglobin/Blood,Ur Negative Negative pH, Urine 8.5 (H) 5.0 - 8.0 Protein, Urine Negative Negative mg/dL Urobilinogen 0.2 0.2 - 1.0 Nitrites Negative Negative Leukest Trace (A) Negative RAPID PCR ASSAY FOR INFLUENZA Result Value Ref Range Specimen Source. Nasopharyngeal Swab Influenza A PCR Negative for Influenza A by RT PCR Influenza B PCR Negative for Influenza B by RT PCR URINE MICROSCOPIC Result Value Ref Range WBC, Urine 0-5 0 - 5 /HPF RBC, Urine 0-3 0 - 3 /HPF Cast SEE COMMENT 0 /LPF Bacteria Few (A) 0 /HPF Epithelial Cells SEE COMMENT /HPF TYPE + SCREEN Result Value Ref Range Type+Scr Expiration 02/18/2018 Order Type Blood Bank Blood Bank US PREG TRANSABD >/= TO 14 WEEKS LTD Final Result IMPRESSION: Single living intrauterine fetus with an estimated gestational age of 15 weeks and 4 days. Senior Account Director: ROSEMARY Transcribe Date/Time: Feb 15 2018 9:18P Dictated by : KYRA DÍAZ MD This examination was interpreted and the report reviewed and electronically signed by: KYRA DÍAZ MD on Feb 15 2018 9:21PM EST XR CHEST 2V FRONTAL/LAT Final Result IMPRESSION: No acute radiographic abnormality. Senior Account Director: ROSEMARY Transcribe Date/Time: Feb 15 2018 8:01P Dictated by : PHILIP FLOWERS MD This examination was interpreted and the report reviewed and electronically signed by: PHILIP FLOWERS MD on Feb 15 2018 8:02PM EST Medical Decision Making: The patient on arrival does not appear to be in any apparent distress although she is tachycardic. The patient is afebrile here. The patient's blood pressure was 91/73. Patient will be given a liter of fluid. The patient did have Tylenol before arrival here. She had temperature max of 101.7 at home. Patient will have laboratory studies obtained, urinalysis, urine culture. She has been complaining of a slight cough and some congestion. The patient will have a chest x-ray, pelvic ultrasound and an influenza swab obtained as well. The patient had laboratory studies obtained that showed a normal white blood cell count with a 9.63 with blood cell count. The patient's hemoglobin hematocrit were within normal limits at 12.2 and 34.6. Platelet count is 190. The patient had slight left shift. The patient's CMP was within normal limits other than a total protein of 6.2, albumin of 3.4, BUN of 6, a sodium of 132, potassium of 3.6, bicarbonate was 21. Magnesium was 1.6. The patient was given a liter of fluid initially. The patient will be given 400 mg of magnesium oxide. The patient will also be given 40 mEq of potassium chloride. The patient had influenza obtained due to the nasal congestion cough and was negative for influenza A and B. The patient was also sent for chest x-ray that doesn't show any evidence of acute radiographic abnormality. The patient's urinalysis did show evidence of trace leukocyte esterase but no evidence of nitrites. The patient had a normal white blood cell count of the urine with 0-5, RBC 0-3, few casts, few bacteria and epithelial cells present. Ultrasound does show a intrauterine at 15 weeks and 4 days. I discussed the patient with Dr. Luis Santana who was in agreement to have the patient follow-up as an outpatient. The patient does appear well. Her symptoms are improving at this time. Heart rate has improved to 92. Blood pressure is 94/55. The patient is feeling much better at this point. Patient will be discharged home and have close follow- up with SUPERVISOR FLOOR ASSEMBLY. They have the signs or symptoms worsen the patient will return immediately. She does have Phenergan at home and will use as needed. Clinical Impression: Encounter Diagnosis ICD-10-CM 1. Abdominal pain during in second trimester O26.892 R10.9 2. Non-intractable vomiting with nausea, unspecified vomiting type R11.2 3. Nasal congestion R09.81 4. Cough R05 Condition at disposition: stable Disposition: DISCHARGED: Counseled patient and spouse regarding lab results AND radiology results AND suspected diagnosis AND need for follow- up. Discharged home with verbal and written instructions. They were instructed to return as needed for persistent or worsening symptoms or any new concerns. The attending who evaluated and managed this patient was Dr. Alexander. SIGNATURE: Michael Green III, ALLYN Green III 02/15/[id number] Attending Note I have personally performed a face to face assessment of the patient and have reviewed the PA/TELECOMMUNICATIONS LINESWORKER note. My odell findings include: History :patient who is ~ 16 weeks gestation here with fever since 1400 today. She had n/v early this morning at 0400 and subsequently went to infusion center for IVF's since she has h/o hyperemesis. While coming to ED she had left upper/sided abdominal cramping. She denies urinary symptoms, cough, URI symptoms, flank pain, or sore throat. Per patient blood pressure runs in the 90's. Exam : belly soft non tender, gravid uterus, no flank tenderness, pharynx clear, neck supple, no meningeal signs, non toxic appearing. Assessment/Plan: work up in ED, was unremarkable, with WBC 9.63, Mg 1.6, K 3.6, Na 132, CO2 21, albumin 3.4, urinalysis shows trace LE, few bacteria, urine culture sent, negative rapid flu, u/s abd shows single IUP 15 weeks 4 days, with Heart rate 153, IVF's and magnesium/k replacement, Allyn discussed with Dr. Santana regarding treatment plan. rx urine culture sent, will call in AM. Follow up. Other additions or changes: None Signature: Ladan Alexander MD Date: 02/15/2018 Time: 9:38 PM Ladan Alexander MD 02/15/[id number] URINALYSIS Collected: 02/15/2018 Status: F Source: [facility] 7:00 PM CLINIC OTHER CAMPUS REPOSITORY TYPE CODE TESTS RESULT OUT OF RANGE REFERENCE UNITS LAB UCOL Yellow Color Yellow LAB [facility] Clear Clarity Clear LAB UGLUC Negative mg/dL Glucose, Abnormal Urine 500 Alert LAB UBIL Negative Bilirubin, Urine Negative LAB UKET Negative Ketones, Urine Negative LAB USPG 1.001-1.029 Specific [place], Ur 1.015 LAB UHGB Negative Hemoglobin/Blood, Negative Ur LAB UPH 5.0-8.0 High pH 8.5 LAB UPROT Negative mg/dL Protein, Urine Negative LAB UUROB 0.2-1.0 Urobilinogen 0.2 LAB UNITR Negative Nitrites Negative LAB ULKEST Negative Leukest Abnormal Trace Alert Performed By: #### UA, UAMIC #### [facility] [address] [place] [phone] URINE MICROSCOPIC Collected: 02/15/2018 Status: F Source: [place] (FOR LAB USE ONLY) 7:00 PM CLINIC OTHER PERRY REPOSITORY TYPE CODE TESTS RESULT OUT OF REFERENCE UNITS RANGE LAB UWBC 0-5 /HPF WBC 0-5 LAB URBC 0-3 /HPF RBC 0-3 LAB UCAST 0 /LPF Cast SEE COMMENT Result Comment: 0 LAB UBACT 0 /HPF Abnormal Bacteria Alert Few LAB UEPI /HPF Epithelial Cells SEE COMMENT Result Comment: 0-5 Squamous Epithelial Cells Performed By: #### UA, UAMIC #### [facility] [address] [place] [phone] Observed: 02/15/2018 Status: F Source: [place] URINE CULTURE 7:00 PM [facility] REPOSITORY Sp. Request/Comment: - Specimen received in preservative Culture Result - <10,000 CFU/ml Normal urogenital mike Performed By: #### URCUL #### [facility] [address] [place] [phone] [facility] [address] [place] [address] ED NOTE Observed: 02/15/2018 Status: COMPLETED Source: [place] 6:[address] [facility] OTHER PERRY REPOSITORY HNO ID: [id number] Author: Tammi (Rn) ZAFAR Roberts Service: Nursing Author Type: Registered Nurse Type: ED Notes Filed: 02/15/2018 6:53 PM Note Text: Patient is 16 weeks . She has had morning sickness on and off through out . Today she went to [facility] and received fluids and medication for nausea. Patient went home and started running a fever. Stated it was up to 101.7f. CO abdominal pain 10/07. SUPERVISOR FLOOR ASSEMBLY OFFICE VISIT Observed: 01/26/2018 Status: F Source: [place] REPORT 12:46 PM [facility] REPOSITORY [facility] [address] [place] [address] OFFICE VISIT Date of Service: 01/25/18 MR#: [id number] Acct: [id number] Name: SOPHIE WEBB Rep #: [id number] : 1990 Provider: Nancy Harper MD Age/Sex: 27/F Location: [facility] Status: Signed Intake Vital Signs01/25/18 Height 5 ft 2 in 01/25/18 Weight: 159 lb 6 oz 01/25/18 Body Mass Index (BMI) 29.1 01/25/18 Blood Pressure 108/80 Intake Visit Reasons: est ob 12 weeks Bed Bug Exterminator Required: No Is patient in pain?: No Allergies No Known Allergies Allergy (Verified 01/25/18 11:55) Medications docosahexanoic acid 200 mg capsule mg PO 12/24/17 [History Confirmed 01/25/18] promethazine 12.5 mg tablet 12.5 mg PO Q6H PRN #90 tab 01/08/18 [Rx Confirmed 01/25/18] Last Menstral Period: 10/29/17 Zika: Zika virus screening: Negative : No PFSH PFSH Medical History Migraines (Chronic) Family History Father Hypertension Aunt Breast cancer Grandmother Heart disease Social History Smoking Status: Current every day smoker alcohol intake: never substance use type: does not use caffeine: Yes what type of physical activity do you participate in: none seatbelt use: always do you feel safe at home: Yes additional social history: - Maninder-Carney 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 OB Visit ELISA Calculator Estimated Delivery Date 08/05/18 Based on LMP (certain) 10/29/17 Current WG 12w 5d Number 1 Expected Delivery Route/Plan Initial Weight: Not Recorded Date Weight BP Urine PrFHR FuHt Pres MoCTX DilationFetal StVisit NoProviderComments E ot v te GA G Effac lucose ed Visit Notes Visit Date: 01/25/18 n vb crmaping, feeling better Nancy Harper MD on 01/26/18 Visit Date: 12/24/17 No visit notes to display ACOG First Trimester First Trimester: Desire for , Alcohol, Tobacco Cessation, Illicit/Recreational Drug/Substance Use, Intimate Partner Violence, Barriers to care, Unstable Housing, Communication Barriers, Environmental/Work Hazards, Anticipated Course of Care, Toxoplasmosis Precations, Use of Any medications, Sexual activity, Exercise, Dental Care, Sauna/Hot tub use, Seat Belt use, Childbirth classes/Hospital facilities, , Travel, Indications for US and Screening for Aneuploidy Diagnostics Diagnostics Labs Blood Type A POSITIVE 01/04/18 Antibody Screen NEGATIVE 01/04/18 Hct 40.8 % (37-47) 01/04/18 Hgb 13.8 g/dl (12.0-15.0) 01/04/18 Rubella IgG Antibody 37.8 IU/mL 01/04/18 RPR NONREACTIVE (NONREACTIVE) 01/04/18 Hep Bs Antigen Negative (Negative) 01/04/18 Chlam trachomat DNA PCR Negative (Negative) 12/24/17 N.gonorrhoeae DNA (PCR) Negative (Negative) 12/24/17 Miscellaneous Test 01/04/18 Details: HIV: Urine Culture: Sequential Screen: NIPT Screen: Assessment AND Plan Problems 1. screening encounter Z36.9 NIPT low risk 2. 12 weeks gestation of Z3A.12 NIPT negative. carrier screening declined. NTD ? 3. Normal in first trimester Z34.91 PRR (repeat urine cx) ELISA 08/05/18 Maninder 4. Urinary tract infection in mother during first trimester of O23.41 needs repeat culture 5. Migraine without aura and without status migrainosus, not intractable G43.009 Plan ACOG trimester education reviewed and updated. see problem list details for updated plan management information and see below for orders placed at this visit. GA appropriate handout given. Orders Orders: Coding Level of Care Code OB Routine Diagnoses screening encounter Z36.9 12 weeks gestation of Z3A.12 Weeks of gestation: 12 weeks Normal in first trimester Z34.91 Trimester: first trimester Urinary tract infection in mother during first trimester of O23.41 Trimester: first trimester Migraine without aura and without status migrainosus, not intractable G43.009 Migraine type: without aura Status migrainosus presence: without status migrainosus Intractability: not intractable 01/26/18 1246 <Electronically signed by Nancy Harper MD> Date Nancy Harper MD Cosigner Signature: Date (if applicable) CC: Observed: 01/25/2018 Status: F Source: [place] CULTURE, URINE 2:43 PM [facility] REPOSITORY Urine Culture ORGANISM 1: Presumptive E. coli [place] Count 11,000-25,000 Presumptive E. coli: REACTION Amoxacillin/Clavulanic Acid $ 16 I Ampicillin $ >=32 R Ampicillin/Sulbactam $ >=32 R Cefazolin $ 32 R Cefepime $ <=1 S Ceftriaxone $ <=1 S Ciprofloxacin $ <=0.25 S ESBL - Ertapenim $$$ <=0.5 S Gentamicin $ <=1 S Imipenem *NF <=0.25 S Levofloxacin $ 1 S Nitrofurantoin $ <=16 S Tobramycin $ <=1 S Trimethoprim/Sulfametho $ <=20 S (NF) indicates non-formulary drug at [facility]. Approval by Infectious Disease Specialist required before non-formulary drugs may be ordered and/or dispensed. Performed By: #### M100.0650 #### [facility] [address] [place], [address] CBC W/DIFF, AUTOMATED Collected: 01/04/2018 Status: F Source: [place] 12:01 PM [facility] REPOSITORY TYPE CODE TESTS RESULT OUT OF RANGE REFERENCE UNITS LAB L100.1000 4.4-11.0 K/mm3 Normal WBC 6.6 LAB L100.1200 4.2-5.4 M/mm3 Normal RBC 4.61 LAB L100.1300 12.0-15.0 g/dl Normal HGB 13.8 LAB L100.1400 37-47 % Normal HCT 40.8 LAB L100.1500 81-99 fL Normal MCV 88.5 LAB L100.1600 27.0-32.0 pg Normal MCH 29.9 LAB L100.1700 32-36 g/gl Normal MCHC 33.8 LAB L100.1810 11.6-14.6 % Normal RDW CV 12.1 LAB L100.1820 35.1-43.9 fl Normal RDW SD 38.6 LAB L100.1900 150-450 K/mm3 Normal PLT 271 LAB L100.2000 6.2-12.0 fl Normal MPV 10.0 LAB L100.2100 47-70 % Normal NEUT% 67.5 LAB L100.2200 19-41 % Normal LY% 21.8 LAB L100.2300 0-10 % Normal MONO% 8.9 LAB L100.2400 0-5 % Normal EO% 1.2 LAB L100.2500 0-1 % Normal BASO% 0.3 LAB L100.2550 0.0-0.9 % Normal IM GRAN % 0.300 Result Comment: IG% - Immature Granulocytes (promyelocytes, myelocytes and metamyelocytes) > 1% indicates that a LEFT SHIFT is Present. LAB L100.2620 2.0-7.7 X10 3/uL Normal Absolute Neut 4.5 LAB L100.2720 0.83-4.51 X10 3/ul Normal Absolute Lymph 1.45 Performed By: #### L100.0100, B101.7450 #### [facility] [address] [place], [place], [id number] TYPE AND SCREEN Collected: 01/04/2018 Status: F Source: [place] 12:01 PM [facility] REPOSITORY Order Comment: Reason for Type AND Screen/Red Cells: TYPE CODE TESTS RESULT OUT OF RANGE REFERENCE UNITS LAB B10.0800 A Normal BLOOD TYPE GEL POSITIVE LAB B100.4000 Normal Antibody NEGATIVE Screen Performed By: #### L100.0100, B101.7450 #### [facility] [address] [facility] [place], [place], [id number] RUBELLA IGG Collected: 01/04/2018 Status: F Source: [place] 12:01 PM [facility] REPOSITORY TYPE CODE TESTS RESULT OUT OF RANGE REFERENCE UNITS LAB L509.4000 IU/mL Normal Rubella IgG 37.8 Result Comment: Antibody results Interpretation of Immune Status < 5 IU/ml Presumed Non-immune 5 - < 10 IU/ml Equivocal > or = 10 IU/ml Presumed Immune Performed By: #### L509.4000, L3890.6005 #### [facility], [address] #### L3100.0390 #### [facility] (refer to report for specific site) refer to report for address and phone number HIV - [facility] Collected: 01/04/2018 Status: F Source: [place] 12:01 PM [facility] REPOSITORY TYPE CODE TESTS RESULT OUT OF RANGE REFERENCE UNITS LAB L3890.6005 Nonreactive Normal HIV - [facility] Non-Reactive Performed By: #### L509.4000, L3890.6005 #### [facility] [address] [place] [address]. [place], [address] #### L3100.0390 #### [facility] (refer to report for specific site) refer to report for address and phone number HEPATITIS B SURFACE Collected: 01/04/2018 Status: F Source: [place] AG 12:01 PM [facility] REPOSITORY TYPE CODE TESTS RESULT OUT OF RANGE REFERENCE UNITS LAB L3100.0400 Negative Normal HB Negative SURF AG Result Comment: Performed at: - [facility] [address] [id number] Animal Cop: Vamsi Burrell PhD, Phone: [phone] Performed By: #### L509.4000, L3890.6005 #### [facility] [address] [place] [address]. [place], [address] #### L3100.0390 #### [facility] (refer to report for specific site) refer to report for address and phone number RAPID PLASMIN REAGIN Collected: 01/04/2018 Status: F Source: [place] (RPR) 12:01 PM [facility] REPOSITORY TYPE CODE TESTS RESULT OUT OF REFERENCE UNITS RANGE LAB L700.5000 NONREACTIVE NONREACTIVE Normal RPR Performed By: #### L700.5000 #### [place] [facility] [address] [place], [address] MISCELLANEOUS LAB Collected: 01/04/2018 Status: F Source: [place] PROCEDURE 12:01 PM [facility] REPOSITORY Order Comment: Test(s) Ordered: LUZ SEND OUT BOX TYPE CODE TESTS RESULT OUT OF RANGE REFERENCE UNITS LAB L801.1541 Normal [facility] LAB TEST Result Comment: Sent directly to testing facility per ordering physician. 01/16/18 1212 MYOUNG Performed By: #### L801.1541 #### [facility] [address] [place], [address] SUPERVISOR FLOOR ASSEMBLY OFFICE VISIT Observed: 12/27/2017 Status: F Source: [place] REPORT 10:10 PM [facility] REPOSITORY [facility] [address] [place] [address] OFFICE VISIT Date of Service: 12/24/17 MR#: [id number] Acct: [id number] Name: SOPHIE WEBB Rep #: [id number] : 1990 Provider: Nancy Harper MD Age/Sex: 27/F Location: [facility] Status: Signed Intake Vital Signs12/24/17 Height 5 ft 2 in 12/24/17 Weight: 160 lb 12/24/17 Body Mass Index (BMI) 29.2 12/24/17 Blood Pressure 108/64 Intake Visit Reasons: NOB - LMP - 10/29 Bed Bug Exterminator Required: No Accompanied by: Is patient in pain?: No Allergies No Known Allergies Allergy (Verified 12/24/17 13:38) Medications docosahexanoic acid 200 mg capsule mg PO 12/24/17 [History Confirmed 12/24/17] amoxicillin 500 mg tablet 500 mg PO TID 7 Days #21 tab 12/25/17 [Rx] Last Menstral Period: 10/29/17 Zika: Zika virus screening: Negative : No PFSH PFSH Medical History Migraines (Chronic) Family History Father Hypertension Aunt Breast cancer Grandmother Heart disease Social History Smoking Status: Current every day smoker alcohol intake: never substance use type: does not use caffeine: Yes what type of physical activity do you participate in: none seatbelt use: always do you feel safe at home: Yes additional social history: - Maninder-Carney 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 OB Visit ELISA Calculator Estimated Delivery Date 08/05/18 Based on LMP (certain) 10/29/17 Current WG 8w 3d Number 1 Comments: elisa consistent with LMP Expected Delivery Route/Plan Initial Weight: Not Recorded Date Weight BP Urine PrFHR FuHt Pres MoCTX DilationFetal StVisit NoProviderComments E ot v te [place] G Effac lucose ed Menstrual History Last Menstral Period: 10/29/17 Reported LMP: definite Normal amount/duration: No On hormonal BC at conception: No hCG+: 11/26/17 Antepartum Record Genetic Screening: Congenital Heart Defect: Other, Neural Tube Defect: Other, Hemoglobinopathy Or Carrier: Other, Cystic Fibrosis: Other, Chromosome Abnormality: Other, Daniel-Sachs: Other, Hemophilia: Other, Intellectual Disability/Autism: Other, Recurrent Loss/Stillbirth: Other, Other Structural Defect: Other, Other Genetic Disease: Other, Maternal Metabolic Disorder: Other Infection History: Live with someone with TB or Exposed to TB: No, Patient or Partner has history of Genital Herpes: No, Rash or Viral illness since last mentrual period: No, Prior GBS-Infected child: No, History of STD: No, HIV Infection: No, History of Hepatitis: No, Recent travel outside of [place]: No, Concern for Hep exposure: No, Varicella immune: Yes Medical History Medical History: Negative: Diabetes, Hypertension, Heart disease, Auto-immune disorder, Kidney disease/UTI, Neurologic/epilepsy, Psychiatric, Depression/ depression, Hepatitis/liver disease, Varicosities/phlebitis, Thyroid dysfunction, Trauma/domestic violence, History of blood transfusions, D (Rh) Sensitized, Pulmonary (e.g.,TB,Asthma), Seasonal allergies, Drug/latex allergies/reactions, Breast, Aquatic Scientist surgery, Operations/hospitalizations, Anesthetic complications, History of abnormal pap, Uterine anomaly/marah, Infertility, Anti-retroviral treatment, Relevant family history, Other ACOG First Trimester First Trimester: Desire for , Alcohol, Tobacco Cessation, Illicit/Recreational Drug/Substance Use, Intimate Partner Violence, Barriers to care, Unstable Housing, Communication Barriers, Environmental/Work Hazards, Anticipated Course of Care, Nurtrition and weight gain, Toxoplasmosis Precations, Use of Any medications, Sexual activity, Exercise, Dental Care, Sauna/Hot tub use, Seat Belt use, Childbirth classes/Hospital facilities, , Travel, Indications for US and Screening for Aneuploidy ROS Const Denies fever(s), Reports system reviewed and no additional complaints, except as docu, Reports fatigue Eyes Reports system reviewed and no additional complaints, except as docu ENT Reports system reviewed and no additional complaints, except as docu Card Denies chest pain, Denies shortness of breath Resp Reports system reviewed and no additional complaints, except as docu, Denies shortness of breath, Denies cough GI Reports nausea, Denies abdominal pain Reports system reviewed and no additional complaints, except as docu Musc Reports system reviewed and no additional complaints, except as docu Skin/Breast Reports system reviewed and no additional complaints, except as docu Neuro Yes system reviewed and no additional complaints, except as docu Psych Reports system reviewed and no additional complaints, except as docu Endo Reports fatigue, Reports system reviewed and no additional complaints, except as docu Exam Const General: healthy appearing, comfortable, no acute distress Orientation: alert [facility] Head: normal to inspection, atraumatic, normocephalic Ears: external ears normal, hearing grossly normal bilaterally Nose: nares normal, external nose normal Mouth: oral mucosae normal Teeth and gingiva: dentition normal Eyes General: appearance normal, both eyes and all related structures Neck Neck: no lymphadenopathy, supple, normal visual inspection Thyroid: thyroid normal Chest Chest palpation AND inspection: normal inspection of the chest Breast inspection: normal inspection of the breasts, normal inspection of the axillae Breast palpation: normal palpation of the breasts, normal palpation of the axillae Resp Effort AND Inspection: normal respiratory effort GI Inspection: normal to inspection Palpation: soft, no hepatosplenomegaly General: bladder normal to palpation External Female Exam: normal external appearance, normal appearance of the urethra Urethra: normal appearance of the urethra Speculum Exam - Vagina: normal appearance of the vagina, normal vaginal discharge Speculum Exam - Cervix: normal appearance of the cervix Bimanual Exam- Vagina AND Uterus: bladder normal to palpation, normal bimanual exam, uterus non-tender, other Bimanual Exam- Adnexa, other: adnexae non-tender Skin General: no rashes or lesions noted Neuro Motor: muscle tone normal throughout, no movement abnormalities noted Extrem General: normal to inspection, full ROM Assessment AND Plan Problems 1. Normal in first trimester Z34. ELISA 08/05/18 Maninder 2. Less than 8 weeks gestation of Z3A.01 Plan Patient oriented to practice and discussed care expectations and screenings. [facility] book offered to patient. Discussed routine and specially indicated labs if needed- patient consents to testing. see problem list details for plan information. Optional screening including carrier screenings, neural tube defect screening, sequential screening, and NIPT screening offered to patient and patient chose: considering Orders Orders: Medications Discontinued: ondansetron Discontinued Reason: Order Com4 mg PO Q4H PRN PRN Nausea Karla Marino pleted Supplemental Info [facility] book given and patient encouraged to read about nutrition, exercise, weight gain, and food avoidance in . Coding Level of Care Code OB Routine Diagnoses Normal in first trimester Z34. Trimester: first trimester Less than 8 weeks gestation of Z3A.01 Weeks of gestation: less than 8 weeks 12/27/17 9390 <Electronically signed by Nancy Harper MD> Date Nancy Harper MD Cosigner Signature: Date (if applicable) CC: CT/NG [facility] BY PCR Collected: 12/24/2017 Status: F Source: [place] 1:10 PM [facility] REPOSITORY TYPE CODE TESTS RESULT OUT OF RANGE REFERENCE UNITS LAB L8200.2100 Negative Normal Chlam Negative Trac PCR LAB L8200.2200 Negative Normal NG by Negative PCR Performed By: #### L8200.2000 #### [facility] [address] [place], [address] Observed: 12/24/2017 Status: F Source: [place] CULTURE, URINE 1:10 PM [facility] REPOSITORY Urine Culture ORGANISM 1: Presumptive E. coli [place] Count >100,000 Presumptive E. coli: REACTION Amoxacillin/Clavulanic Acid $ 16 I Ampicillin $ >=32 R Ampicillin/Sulbactam $ >=32 R Cefazolin $ >=64 R Cefepime $ <=1 S Ceftriaxone $ <=1 S Ciprofloxacin $ <=0.25 S ESBL - Ertapenim $$$ <=0.5 S Gentamicin $ <=1 S Imipenem *NF <=0.25 S Levofloxacin $ 0.25 S Nitrofurantoin $ <=16 S Piperacillin/Tazobactam $$ <=4 S Tobramycin $ <=1 S Trimethoprim/Sulfametho $ <=20 S (NF) indicates non-formulary drug at [facility]. Approval by Infectious Disease Specialist required before non-formulary drugs may be ordered and/or dispensed. Performed By: #### M100.0650 #### [facility] [address] [place], [place], [address] PAP I-G W/RFX Collected: 12/24/2017 Status: F Source: [place] HRHPV-APTIMA 1:10 PM [facility] REPOSITORY Order Comment: CYTOLOGY INFORMATION: - CLINICAL INFORMATION: - DATE LMP/MENOPAUSE: - COLLECTION VIAL: Thin Prep Vial - EXTENSION SERVICE ADVISOR SOURCE: CERVICAL - COLLECTION TECHNIQUE: CX BROOM ONLY Specimen Comment: [id number] Specimen Comment: No. of containers..01 ThinPrep Vial TYPE CODE TESTS RESULT OUT OF RANGE REFERENCE UNITS LAB L7400.0800 . Normal DIAGN Comment Result Comment: NEGATIVE FOR INTRAEPITHELIAL LESION AND MALIGNANCY. THIS SPECIMEN WAS RESCREENED PART OF OUR INSTRUMENT MECHANICS SUPERVISOR PROGRAM. LAB L7400.0900 . Normal ADEQ Comment Result Comment: Satisfactory for evaluation. Endocervical and/or squamous metaplastic cells (endocervical component) are present. LAB L7400.1400 . Normal PERFORM Comment Result Comment: Ridge Gao, Early Childhood Educator Aide (ASCP) LAB L7400.1500 . Normal QC Comment REV Result Comment: Odessa Bradley, Supervisory Early Childhood Educator Aide (ASCP) LAB L7400.2575 . Normal TEST METHOD Comment Result Comment: This liquid based ThinPrep(R) pap test was screened with the use of an image guided system. LAB L7400.2600 . Normal . COMM LAB L7400.2700 . Normal PAPSMR Comment Result Comment: The Pap smear is a screening test designed to aid in the detection of premalignant and malignant conditions of the uterine cervix. It is not a diagnostic procedure and should not be used as the sole means of detecting cervical cancer. Both false-positive and false-negative reports do occur. LAB L7400.2800 . Normal HPV RFLX Comment Result Comment: The HPV DNA reflex criteria were not met with this specimen result therefore, no HPV testing was performed. Performed at: - [facility] [id number] Animal Cop: Karen Lewis MD, Phone: [phone] Performed By: #### L7400.0353 #### [facility]er [facility] for [facility] refer to report for address and phone number HCG TITER QUANT., Collected: 11/26/2017 Status: F Source: [place] SERUM 9:30 AM [facility] REPOSITORY TYPE CODE TESTS RESULT OUT OF RANGE REFERENCE UNITS LAB L700.8000 <9 non-preg mIU/mL High HCG 140 QUANT. Performed By: #### L700.8000 #### [facility] [address] [facility], [address] GASTRIC EMPTYING Observed: 11/19/2017 Status: F Source: [place] STUDY 9:26 AM [facility] REPOSITORY [facility] Imaging Services [address] [place] [place] [address] Gastric Emptying Study MR#: [id number] Acct: [id number] Name: SOPHIE WEBB Rep #: [id number] : 1990 F 27 From: Steve Garcia DO PCP: Alejandro Major MD Status: REG CLI Study: Gastric Emptying Study Date of Exam: 11/19/17 Exam# [id number] Ordering Dr: Vamsi Lopez MD CLINICAL: 67-year-old female with reported history of chronic nausea. SEMI-SOLID PHASE 99m Tc SULFUR COLLOID GASTRIC EMPTYING STUDY COMPARISON: CT of the abdomen-pelvis report of 03/08/2017 FINDINGS: The patient was administered 1.0 mCi of 99m Tc sulfur colloid mixed with oatmeal and consumed per os. Image acquisitions in the anterior-posterior projections for a total of 90 minutes. There is prompt visualization of the stomach. There is no gastroesophageal reflux identified. The T1/2 linear fit was calculated to be 42.14 minutes, (Normal: 12-56 minutes). NM/Gastric Emptying Study IMPRESSION: 1. NORMAL 99m Tc sulfur colloid semi-solid phase (oatmeal) gastric emptying imaging examination. A. There is normal and preserved semi-solid phase gastric emptying compared to normal controls with maintained first order kinetics throughout all components of the examination. (Rachel et al, J Nucl Med Tech 38: 186, 2010). Electronically Signed: Steve Garcia DO at 20:00 EDT Tel , Service support , CC: Alejandro Major MD; Vamsi Lopez Senior Account Director: Signed LIVER PROFILE Collected: 09/26/2017 Status: F Source: [place] 9:45 AM [facility] REPOSITORY TYPE CODE TESTS RESULT OUT OF RANGE REFERENCE UNITS LAB L501.1500 6.4-8.2 g/dL Normal T PROT 7.6 LAB L501.1800 3.2-5.0 g/dL Normal ALB 3.9 LAB L501.1950 2.2-4.2 g/dL Normal GLOB 3.7 LAB L501.4100 15-37 U/L Low AST 12 LAB L501.4305 45-117 U/L Normal ALK P 93 LAB L501.4405 13-56 U/L Normal ALT 18 LAB L501.4600 0.20-1.00 mg/dL Normal T BILI 0.50 LAB L501.4700 0.00-0.30 mg/dL Normal D BILI 0.10 Performed By: #### L500.3400, L501.2450, L501.6710 #### [facility] [address] [place], [address] LIPASE Collected: 09/26/2017 Status: F Source: [place] 9:45 AM [facility] REPOSITORY TYPE CODE TESTS RESULT OUT OF RANGE REFERENCE UNITS LAB L501.2450 73-393 U/L Normal LIPASE 120 Performed By: #### L500.3400, L501.2450, L501.6710 #### [facility] [address] [place], [address] CRP Collected: 09/26/2017 Status: F Source: [place] 9:45 AM [facility] REPOSITORY TYPE CODE TESTS RESULT OUT OF RANGE REFERENCE UNITS LAB L501.6710 0.0-3.0 mg/L High 4.97 C-REACTIVE PROT Result Comment: C-Reactive Protein (CRP) provides useful information for the diagnosis, therapy and monitoring of inflammatory processes and associated diseases. For the evaluation of Relative Risk for Cardiovascular Disease, a High Sensitivity CRP (HSCRP) should be ordered. Performed By: #### L500.3400, L501.2450, L501.6710 #### [facility] [address] [place], [place], [address] CELIAC DISEASE Collected: 09/26/2017 Status: F Source: [facility] 9:45 AM [facility] REPOSITORY TYPE CODE TESTS RESULT OUT OF RANGE REFERENCE UNITS LAB L3200.1400 87-352 mg/dL Normal IMMUNO A 103 Result Comment: Performed at: [address] [id number] Animal Cop: Vamsi Burrell PhD, Phone: [phone] LAB L3072.4583 0-3 U/mL Normal tTG IGA <2 Result Comment: Negative 0 - 3 Weak Positive 4 - 10 Positive >10 Tissue Transglutaminase (tTG) has been identified as the endomysial antigen. Studies have demonstr- ated that endomysial IgA antibodies have over 99% specificity for gluten sensitive enteropathy. LAB L3410.9279 Negative Normal ENDOMYSIAL IGA Negative Performed By: #### L3410.2400 #### [facility] (refer to report for specific site) refer to report for address and phone number ALLERGIES ALLERGIES DATE TYPE / CODE NAME / CODE REACTION SEVERITY SOURCE 05/06/2018 Drug No Known Unknown [facility] Allergy/416 Allergies/B55543 Hospital 946837(SNOM 0388(RXNORM) Repository ED CT) Drug NO KNOWN [facility] Class/21998 ALLERGIES Other [place] 1003(SNOMED Repository CT) ENCOUNTERS ENCOUNTERS ADMIT/DISCHARGE ACCOUNT ADMITTING ENCOUNTER LOCATION SOURCE NUMBER CLASS 05/17/[id number] [facility] ing:LAB Repository 05/06/[id number] [facility] ing:PAVLAB Repository 05/06/2018/05/06/19 [id number] Ambulatory BMSBuilding:B Cari [facility] Repository 04/27/[id number] [facility] ing:LAB Repository 04/05/[id number] [facility] ing:LAB Repository 04/05/2018/04/05/20 [id number] Ambulatory BMSBuilding:B C[facility] Repository 03/07/2018/03/07/20 [id number] Ambulatory Building:[address] Repository 02/26/2018/02/27/20 [id number] Ambulatory BMSBuilding:B Cari 18 [facility] Repository 02/15/2018/02/16/20 [id number] Emergency [address] Other [place] Repository 02/15/[id number] [facility] ing:MEDOUTP Repository 01/25/[id number] [facility] ing:LABSPEC Repository 01/25/2018/01/26/20 [id number] Ambulatory BMSBuilding:B [place] [facility] Repository 01/21/2018 [id number] Ambulatory Building:[facility] Repository 01/08/[id number] [facility] ing:MEDOUTP Repository 01/08/2018 [id number] Ambulatory [facility] ing:MEDOUTP Repository 01/04/2018 [id number] Ambulatory [facility] ing:LAB Repository 12/24/[id number] [facility] ing:LABSPEC Repository 12/24/2017/12/25/19 [id number] Ambulatory BMSBuilding:B [place] [facility] Repository 11/26/[id number] [facility] ing:MFPLAB Repository 11/19/[id number] [facility] ing:NM Repository 09/26/[id number] [facility] ing:MTLAB Repository PAYERS PAYERS ENCOUNTER GUARANTOR PAYER SUBSCRIBER SOURCE 05/17/2018 SOPHIE L Primary SOPHIE L Cari [id number] Insurance:ANTHEMPolic BENEDICTDOB: [facility] GREEN ANDREW y Number: [id number] [id number] Repository 71977Qky: [phone]) Date:8783-28-79JZ [phone] () 396785ZGUCIJL, [place] [address]EG: 05/17/2018 Secondary NOT GIVENUNK Gould Insurance:SELF PAY [facility] Number: Effective Repository Date:2018-05-07 05/06/2018 SOPHIE L Primary SOPHIE L Gould [id number] Insurance:ANTHEMPolic BENEDICTDOB: [facility] GREEN ANDREW y Number: [id number], [place] [id number] Repository [address]Wjb: [phone]) Date:9767-56-33JD [phone] () [address]68[address]AEWSDIU, [place] [address]LR: 05/06/2018 Secondary NOT GIVENUNK Cari Insurance:SELF PAY [facility] Number: Effective Repository Date:2018-05-06 05/06/2018 SOPHIE L Primary SOPHIE L Gould [id number] Insurance:ANTHEMPolic BENEDICTDOB: Community GREEN [place]REW y Number: [id number], [place] [id number] Repository [address]Ubu: (765) Date:1061-19-03SF [phone] () CTAHIE ARCE [address]ZB: 05/06/2018 Secondary NOT GIVENUNK Gould Insurance:SELF PAY [facility] Number: Effective Repository Date:2018-05-06 04/27/2018 SOPHIE L Primary SOPHIE L Cari [id number] Insurance:ANTHEMPolic BENEDICTDOB: Community GREEN [place]REW y Number: [id number], [place] [id number] Repository [address]Hsm: (765) Date:8237-40-99FB [phone] () CATHIE ARCE [address]BM: 04/27/2018 Secondary NOT GIVENUNK Gould Insurance:SELF PAY [facility] Number: Effective Repository Date:2018-04-27 04/05/2018 SOPHIE L Primary SOPHIE L Cari [id number] Insurance:ANTHEMPolic BENEDICTDOB: Community GREEN [place]REW y Number: [id number], [place] [id number] Repository [address]Faw: (765) Date:4474-56-59WU [phone] () 354[address]KOKJERBCATHIE PAIGE [address]ZO: 04/05/2018 Secondary NOT GIVENUNK Gould Insurance:SELF PAY [facility] Number: Effective Repository Date:2018-04-05 04/05/2018 SOPHIE L Primary SOPHIE L Gould [id number] Insurance:ANTHEMPolic BENEDICTDOB: Community GRE[place]REW y Number: [id number], [place] [id number] Repository [address]Pya: (765) Date:7981-52-46UP [phone] () 475631LXONRZECATHIE PAIGE [address]GW: 04/05/2018 Secondary NOT GIVENUNK Gould Insurance:SELF PAY [facility] Number: Effective Repository Date:2018-04-05 03/07/2018 SOPHIE Primary SOPHIE [facility] BENEDICTDOB: Insurance:ANTHEMPolic BENEDICTDOB: Hospital [id number] y Number: [id number] Repository [place]EN [place] [id number] [place] Date: [place], [place] [address]Rab: [phone]) [phone] () 02/26/2018 SOPHIE L Primary SOPHIE L Gould [id number] Insurance:ANTHEMPolic BENEDICTDOB: Community GREEN [place]REW y Number: [id number], [place] [id number] Repository [address]Hwn: ([phone]) Date:1008-16-42NX [phone] () 604295NHMNVGF, [place] [address]CC: 02/26/2018 Secondary NOT GIVENUNK Cari Insurance:SELF PAY [facility] Number: Effective Repository Date:2018-02-26 02/15/2018 SOPHIE L Primary SOPHIE L Cari [id number] Insurance:ANTHEMPolic BENEDICTDOB: Community GRE[place]REW y Number: [id number], [place] [id number] Repository [address]Jel: (765) Date:1910-81-61XN [phone] () 898[address]RRNUNTT, [place] [address]QD: 02/15/2018 Secondary NOT GIVENUNK Gould Insurance:SELF PAY [facility] Number: Effective Repository Date:2018-02-15 01/25/2018 SOPHIE L Primary SOPHIE L Cari [id number] Insurance:ANTHEMPolic BENEDICTDOB: Community GRE[place]REW y Number: [id number], [place] [id number] Repository [address]Qkm: ([phone]) Date:0134-97-14PP [phone] () [id number], [place] [address]YD: 01/25/2018 Secondary NOT GIVENUNK Cari Insurance:SELF PAY [facility] Number: Effective Repository Date:2018-01-25 01/25/2018 SOPHIE L Primary SOPHIE L Cari [id number] Insurance:ANTHEMPolic BENEDICTDOB: Community GREEN ANDREW y Number: [id number], [place] [id number] Repository [address]Hma: ([phone]) Date:8013-15-52UQ [phone] () [id number] [place] [address]MV: 01/25/2018 Secondary NOT GIVENUNK Gould Insurance:SELF PAY [facility] Number: Effective Repository Date:2018-01-18 01/21/2018 SOPHIE Primary SOPHIE [facility] BENEDICTDOB: Insurance:ANTHEMPolic BENEDICTDOB: [facility] y Number: [id number] Repository GRE[place] [id number] [place] Date: [place], [place] [address]Wib: [phone]) [phone] () 01/08/2018 SOPHIE L Primary SOPHIE L Gould [id number] Insurance:ANTHEMPolic BENEDICTDOB: Community GRE[place]REW y Number: [id number], [place] [id number] Repository [address]Wye: ([phone]) Date:6135-89-27AA [phone] () [id number] [place] [address]PR: 01/08/2018 Secondary NOT GIVENUNK Cari Insurance:SELF PAY [facility] Number: Effective Repository Date:2018-01-08 01/08/2018 SOPHIE L Primary SOPHIE L Cari [id number] Insurance:ANTHEMPolic BENEDICTDOB: Community GRE[place] ANDREW y Number: [id number], [place] [id number] Repository [address]Mct: (76) Date:6194-83-34AD [phone] () 000502EAYOLBY, [place] [address]XT: 01/08/2018 Secondary NOT GIVENUNK Gould Insurance:SELF PAY [facility] Number: Effective Repository Date:2018-01-08 01/04/2018 SOPHIE L Primary SOPHIE L Gould [id number] Insurance:ANTHEMPolic BENEDICTDOB: Community GRE[place] ANDREW y Number: [id number], [place] [id number] Repository [address]Miq: (765) Date:6248-20-66WA [phone] () 969463MAIFEOA, [place] [address]ZF: 01/04/2018 Secondary NOT GIVENUNK Gould Insurance:SELF PAY [facility] Number: Effective Repository Date:2018-01-04 12/24/2017 SOPHIE L Primary SOPHIE L Gould [id number] Insurance:ANTHEMPolic BENEDICTDOB: Community GRE[place]REW y Number: [id number], [place] [id number] Repository [address]Dkv: (765) Date:8783-91-84ED [phone] () 1777[address]WKOSZFH, [place] [address]UX: 12/24/2017 Secondary NOT GIVENUNK Cari Insurance:SELF PAY [facility] Number: Effective Repository Date:2017-12-24 12/24/2017 SOPHIE L Primary SOPHIE L Cari [id number] Insurance:ANTHEMPolic BENEDICTDOB: Community GREEN ANDREW y Number: [id number] [id number] Repository [address]Epq: (765) Date:0970-81-79BR [phone] () 794[address]YTEXRJC, [place] [address]SW: 12/24/2017 Secondary NOT GIVENUNK Gould Insurance:SELF PAY [facility] Number: Effective Repository Date:2017-12-24 11/26/2017 SOPHIE L Primary SOPHIE L Gould [id number] Insurance:ANTHEMPolic BENEDICTDOB: Community [place] y Number: [id number], [place] [id number] Repository [address]Ywp: (765) Date:5473-11-41HE [phone] () 225508IYTYKONCATHIE PAIGE [address]WS: 11/26/2017 Secondary NOT GIVENUNK Cari Insurance:SELF PAY [facility] Number: Effective Repository Date:2017-11-26 11/19/2017 SOPHIE L Primary SOPHIE L Cari [id number] Insurance:ANTHEMPolic BENEDICTDOB: Community [place] y Number: [id number], [place] [id number] Repository [address]Wiq: (765) Date:0278-73-87IZ [phone] () 418097RFXJWIY, [place] [address]IJ: 11/19/2017 Secondary NOT GIVENUNK Cari Insurance:SELF PAY [facility] Number: Effective Repository Date:2017-10-12 09/26/2017 SOPHIE L Primary SOPHIE L Gould [id number] Insurance:ANTHEMPolic BENEDICTDOB: Community [place] y Number: [id number], [place] [id number] Repository [address]Fjp: (765) Date:7290-65-46WB [phone] () 4957[address]HFPLWCK, [place] [address]JP: 09/26/2017 Secondary NOT GIVENUNK Cari Insurance:SELF PAY [facility] Number: Effective Repository Date:2017-09-26
== END ==
PROVIDERS: Family Provider Family Medicine; PCP Family Medicine; Referring Provider Nurse Practitioner Women's Health; Visit Provider Nurse Practitioner Women's Health
DX: R73.09 Other abnormal glucose (principal)
CPT/HCPCS: 36415; 82951; 82952

== ENCOUNTER → 2018-06-04 17:52 | Outpatient (CLI) | payer BC, SELFPAY ==
[2018-06-04 10:28] VITALS: BMI 33.3
== END ==
PROVIDERS: Family Provider Family Medicine; PCP Family Medicine; Referring Provider Nurse Practitioner Women's Health; Visit Provider Nurse Practitioner Women's Health
DX: R30.0 Dysuria (principal)
CPT/HCPCS: 87086

== ENCOUNTER → 2018-06-05 09:46 | Outpatient (CLI) | payer BC, SELFPAY ==
[2018-06-04 10:28] VITALS: BMI 33.3
== END ==
PROVIDERS: Family Provider Family Medicine; PCP Family Medicine; Referring Provider Nurse Practitioner Women's Health; Visit Provider Nurse Practitioner Women's Health
DX: K62.5 Hemorrhage of anus and rectum (principal)
CPT/HCPCS: 82274

== ENCOUNTER → 2018-07-10 17:48 | Outpatient (CLI) | payer BC, SELFPAY ==
[2018-07-10 08:59] VITALS: BMI 33.3
== END ==
PROVIDERS: Family Provider Family Medicine; PCP Family Medicine; Referring Provider Obstetrics & Gynecology; Visit Provider Obstetrics & Gynecology
DX: Z34.90 Encounter for supervision of normal pregnancy, unspecified, unspecified trimester (principal)
CPT/HCPCS: 87081

== ENCOUNTER → 2018-07-31 13:24 | Outpatient (CLI) | payer BC, SELFPAY ==
[2018-07-31 11:55] VITALS: BMI 33.3
--- NOTE | 2018-07-31 13:32 | US_ITS ---
STUDY: SECOND AND THIRD TRIMESTER OBSTETRICAL ULTRASOUND - LIMITED REASON FOR EXAM: Female, 27 years old. growth, follow-up. LMP: 10/29/2017. GA (LMP) 39 week 2 day with ELISA 08/05/2018. PRIOR ULTRASOUND: None. TECHNIQUE: Transabdominal ultrasound evaluation was performed. FINDINGS: Single live acute or gestation, cephalic presentation, cardiac rate 146 bpm. Amniotic fluid index normal 8.6, maximum vertical pocket 2.8 cm. Placenta grade 3, anterior, not low-lying. Closed cervix measuring approximately 1.8 cm in length. The maternal adnexa are not evaluated. BIOMETRY: Measurement in centimeters. BPD: 9: 36 weeks, 4 days HC: 33: 37 weeks, 5 days AC: 34.4: 38 weeks, 3 days FL: 7.5: 38 weeks, 1 days age by current US: 37 weeks, 5 days. ELISA by current US: 08/16/2018. Estimated weight: 3359 grams, +/- 491 grams, 39 percentile. Limited anatomic images were obtained for assessment position, dates and viability only. In that limited survey no gross anatomic abnormality was observed. US/OB Limited With Biometrics IMPRESSION: Biometrics as above. No acute or maternal abnormality is evident. Electronically Signed: Steve Miranda MD at 16:45 EDT Tel , Service support ,
== END ==
PROVIDERS: Family Provider Family Medicine; PCP Family Medicine; Referring Provider Obstetrics & Gynecology; Visit Provider Obstetrics & Gynecology
DX: O36.60X0 Maternal care for excessive fetal growth, unspecified trimester, not applicable or unspecified (principal); Z3A.00 Weeks of gestation of pregnancy not specified
CPT/HCPCS: 76816

== ENCOUNTER 2018-08-05 15:50 | Inpatient (IN) | payer BC, SELFPAY ==
[2018-07-31 11:55] VITALS: BMI 33.3
[2018-08-05 15:30] VITALS: BMI 32.5
[2018-08-05] MEDS: Lactated Ringers 1,000 ML 50 ML IV ×2 (16:10→17:03)
[2018-08-05 16:31] LABS: Absolute Lymphocyte Count 1.61 X10^3/ul (0.83-4.51); Absolute Neutrophil Count 10.2 X10^3/uL (2.0-7.7); Basophil# 0.03 X10^3/uL; Basophil% 0.2 % (0-1); Eosinophil# 0.12 X10^3/uL; Eosinophils% 0.9 % (0-5); Hematocrit 39.6 % (37-47); Hemoglobin 12.8 g/dl (12.0-15.0); Lymphocyte # 1.61 X10^3/ul (4.0); Lymphocyte % 12.3 % (19-41); Mean Corp Hgb Conc 32.3 g/gl (32-36); Mean Corpuscular Hgb 28.1 pg (27.0-32.0); Mean Platelet Vol. 10.5 fl (6.2-12.0); Monocyte# 1.01 X10^3/uL; Monocyte% 7.7 % (0-10); Neutrophil # 10.16 X10^3/uL (2.7-7.7); Neutrophil % 78.1 % (47-70); Platelet Count 254 K/mm3 (150-450); RBC Distribution Width CV 13.5 % (11.6-14.6); RBC Distribution Width SD 42.6 fl (35.1-43.9); Red Blood Count 4.55 M/mm3 (4.2-5.4)
[2018-08-05 16:37] LABS: POSITIVE COUNT NO; POSITIVE DIFFERENTIAL NO; POSITIVE MORPHOLOGY NO
[2018-08-05] MEDS: fentaNYL-bupivacaine (epidural) 100 ML BAG EPIDURAL (16:59)
--- NOTE | 2018-08-05 21:07 | HP.PCM_ITS ---
- Problem List (1) Abnormal glucose level Status: Acute Comment: 3 hr GTT normal (2) Asymptomatic bacteriuria during in first trimester Status: Acute Comment: x2, s/p macrobid. (3) Status: Acute Qualifiers: Comment: NIPT negative. carrier screening declined. Anatomy US normal. AFP negative (4) Normal Status: Acute Qualifiers: Comment: PRR ELISA 08/05/18 girl pedro Jones (5) Migraines Status: Chronic Qualifiers: (6) Active labor at term Status: Acute History Date of Admission: 08/05/18 Final ELISA: 08/05/18 Gestational age: 40 Weeks and 0 Days History of this : This is a 27 year-old, , at 40 weeks gestational age presents IAL. she latha meraz lof admits good fm and regular ctx since 11am Medical History: Medical History (Last Reviewed 07/31/18 @ 11:55 by Suni Trinh) Migraines (Chronic) G43.909 Allergies No Known Allergies Allergy (Verified 07/31/18 11:55) Home Medications: Home Medications docosahexanoic acid 200 mg capsule mg PO 12/24/17 ondansetron HCl 4 mg tablet 4 mg PO Q6H PRN #60 tab 06/10/18 Smoking Status: Never smoker Alcohol: None Number of Fetus(es): 1 Heart Tracin moderate variability reactive no decelerations category I tracing Sledge: regular History Past Pregnancies: Past Pregnancies Delivery Date Name GA/Weeks Outcome Route Weight Infant Gender Labor Length Anesthesia Delivery Location Provider FOB Labs: Mom's Labs & Results 08/05/18 08/05/18 16:10 16:10 WBC 13.0 H RBC 4.55 Hgb 12.8 Hct 39.6 MCV 87.0 MCH 28.1 MCHC 32.3 RDW 13.5 RDW Differential 42.6 Plt Count 254 MPV 10.5 Immature Gran % (Auto) 0.800 Neut % (Auto) 78.1 H Lymph % (Auto) 12.3 L Yell % (Auto) 7.7 Eos % (Auto) 0.9 Baso % (Auto) 0.2 Absolute Neuts (auto) 10.2 H Absolute Lymphs (auto) 1.61 Total Counted Not Reportable Blood Type A POSITIVE Antibody Screen NEGATIVE Course Did the patient receive Yes care? Labs Blood Type: A RH: POSITIVE RPR/VDRL/Syphilis Nonreactive Rubella status Immune HbSAg Negative Date Done: 01/04/18 Chlamydia Negative Gonorrhea Negative HIV/AIDS Non-Reactive Group B Strep: Negative Current Obstetrical History Gestational Diabetes No Incompetent Cervix No Infertility No IUGR No Macrosomia No Hypertension/Pre-eclampsia No Placenta Previa/Abruption No PTL/PROM No Uterine anomaly No Oligohydramnios No Polyhydramnios No Multiple gestation No Past Medical History Asthma Yes Diabetes No Hypertension No Heart disease No Mitral valve prolapse No Neurologic/Seizure disorder/ Yes: MIGRAINES Migraines Kidney disease No Liver disease No Varicosities No Clotting disorders/Hx of DVT No Thyroid Dysfunction No Other medical diseases No Psychiatric disorders No Major trauma No Abnormal PAP smear No Sleep apnea No Mammogram in the last 2 years No Medications Taken During Dose/Freq.: [TAMAFLU] DAILY Reason for taking medication [ MAY PHENERGAN/ZOFRAN] Reason for taking medication [ MAY TAMAF] Social History Marital Status: Alleged father JONES WEBB Hx Smoking No Smoking Status Never smoker How long have you used NA substances (years)? Expected Delivery Method: Spontaneous Vaginal Review of Systems Constitutional: Denies: Fever, Malaise Eyes: Denies: Blurred vision, Vision Change HEENT: Denies: Head Aches, Visual Changes Cardiovascular: Denies: Chest Pain, Palpitations Respiratory: Denies: Cough, Shortness of Breath, Wheezing Gastrointestinal: Denies: Abdominal Pain, Diarrhea, Nausea, Vomiting Genitourinary: Denies: Dysuria, Hematuria Musculoskeletal: Denies: Joint Pain, Muscle pain Skin: Denies: Lesions, Rash Neurological: Denies: Blurred vision, Focal weakness, Headaches Psychiatric: Denies: Anxiety, Depression Endocrine: Denies: Heat/ Cold Intolerance Hematologic/ Lymphatic: Denies: Easy Bruising, Easy Bleeding Physical Exam General: Alert, Cooperative, No apparent distress HEENT: Atraumatic, Normocephalic. Negative for: Thyromegaly, Lymphadenopathy Cardiovascular: Regular rate Lungs: Normal air movement Abdomen: Soft, Non Tender, Gravid Neurological: Deep Tendon Reflexes 2+/4 and Symmetrical, Neuro grossly intact. Negative for: Clonus [employer]: Normal external genitalia. Negative for: Vulvar lesions Estimated gestational size: Appropriate for gestational size Presentation: Cephalic Assessment/Plan All Active Problems (Last Reviewed 07/31/18 @ 11:55 by Suni Trinh) Active labor at term (Acute) Uterine size-date discrepancy, third trimester (Acute) Abnormal glucose level (Acute) Asymptomatic bacteriuria during in first trimester (Acute) (Acute) Normal (Acute) screening encounter (Resolved) UTI in (Resolved) This is a 27 year-old, at 40 weeks gestational age presents IAL Patient presents IAL, plan expectant management for , pitocin/AROM PRN if needed. Pain management: Plans epidural. GBS negative. Management of any complications: None I have reviewed the [facility] and made any clinically relevant updates.
--- NOTE | 2018-08-05 21:09 | PCM.OPRPT ---
Problem List (1) Abnormal glucose level Status: Acute Comment: 3 hr GTT normal (2) Asymptomatic bacteriuria during in first trimester Status: Acute Comment: x2, s/p macrobid. (3) Status: Acute Qualifiers: Comment: NIPT negative. carrier screening declined. Anatomy US normal. AFP negative (4) Normal Status: Acute Qualifiers: Comment: PRR ELISA 08/05/18 girl pedro Maninder (5) Migraines Status: Chronic Qualifiers: (6) Active labor at term Status: Acute Vaginal Delivery Maternal Presentation: Active Labor ial 40 weeks Amniotic Membrane Rupture Type: Artificial Amniotic Fluid Description: Moderate meconium Final ELISA: 08/05/18 Gestational age: 40 Weeks and 0 Days Date of Procedure: 08/05/18 Pre-Operative Diagnosis: ial Post-Operative Diagnosis: same Surgery/ Procedure Performed: Spontaneous Vaginal Delivery Type of Anesthesia: Epidural Description of Procedure: Patient began pushing and delivered the head in the KAR presentation. The head was delivered atraumatically. The anterior and posterior shoulders delivered without complication followed by the rest of the infant and the was placed on the maternal abdomen. Delayed cord clamping was employed for approximately 60 seconds. Cord was clamped and cut and gentle traction was applied to the cord and the placenta delivered spontaneously immediately following it was noted to be intact with three-vessel cord. The perineum and vagina were inspected and noted to have a second-degree perineal laceration that was repaired in the usual fashion with 3-0 Vicryl repeat. EBL was 400 cc. Patient and infant tolerated delivery well. Presentation: KAR Placental Delivery Description: Spontaneous Placenta Disposition: [facility] Cord Vessel Description: 3 Vessels Cord Entanglement: None Estimated Blood Loss: 400 Infant A gender: Female Episiotomy Description: None Laceration: Perineal Extension/lac, 2nd degree Medications given after delivery: IV Pitocin Complications: None
[2018-08-05] MEDS: Oxytocin 30 units/NS 500 ml 30 UNITS/500 ML IV.SOLN 334 UNITS IV (21:42)
[2018-08-05] MEDS: Oxytocin 30 units/NS 500 ml 30 UNITS/500 ML IV.SOLN 167 UNITS IV (22:12)
[2018-08-05] MEDS: 0.9% Saline Lock 10 ML Syringe IV (23:22)
[2018-08-06 01:00] VITALS: BP 113/75; PULSE 92; RESP 16; TEMP 36.2
[2018-08-06] MEDS: Naproxen 250 MG Tablet 500 MG PO ×2 (05:05→14:17)
[2018-08-06 06:00] VITALS: BP 115/77; PULSE 92; RESP 14; TEMP 36.6
[2018-08-06 07:42] VITALS: BP 108/66; PULSE 72; RESP 15; TEMP 36.3
--- NOTE | 2018-08-06 07:44 | PN.OBGYN_ITS ---
Patient Problems: Active and Suspected Problems (Last Reviewed 07/31/18 @ 11:55 by Suni Trinh) Active labor at term (Acute) Subjective: doing well no complaints pain controlled no CP SOB N V ambulating well tolerating po lochia moderate, with some difficulty - Physical Exam General: Alert, Oriented x3 Abdomen: Soft, Non Tender, - - FF below U Vital Signs Temp Pulse Resp BP 97.8 F 92 14 115/77 08/06/18 06:00 08/06/18 06:00 08/06/18 06:00 08/06/18 06:00 Weight: 189 lb 9.561 oz Body Mass Index (BMI) 32.5 Intake and Output for Last 24 Hours 08/04/18 08/05/18 08/06/18 23:59 23:59 23:59 Intake Total 2081 / 2081 Output Total 150 / 150 600 / 600 Balance -150 / -150 1482 / 1482 Laboratory Tests Past 24 Hrs 08/05/18 08/05/18 16:10 16:10 WBC 13.0 H RBC 4.55 Hgb 12.8 Hct 39.6 MCV 87.0 MCH 28.1 MCHC 32.3 RDW 13.5 RDW Differential 42.6 Plt Count 254 MPV 10.5 Immature Gran % (Auto) 0.800 Neut % (Auto) 78.1 H Lymph % (Auto) 12.3 L Spencer % (Auto) 7.7 Eos % (Auto) 0.9 Baso % (Auto) 0.2 Absolute Neuts (auto) 10.2 H Absolute Lymphs (auto) 1.61 Total Counted Not Reportable Blood Type A POSITIVE Antibody Screen NEGATIVE Medical Necessity - Tobacco Use Smoking Status: Never smoker Assessment/Plan All Active Problems (Last Reviewed 07/31/18 @ 11:55 by Suni Trinh) Active labor at term (Acute) Uterine size-date discrepancy, third trimester (Acute) Abnormal glucose level (Acute) Asymptomatic bacteriuria during in first trimester (Acute) (Acute) Normal (Acute) screening encounter (Resolved) UTI in (Resolved) s/p PPD # 1 1. routine post delivery care 2. breast feeding- support given 3. rh positive 4. rubella immune
[2018-08-06] MEDS: Senna/Docusate Sodium 1 Tablet PO (10:19)
--- NOTE | 2018-08-06 13:49 | NURSING ---
student's charting reviewed
[2018-08-06 13:57] VITALS: BP 116/73; PULSE 80; RESP 18; TEMP 36.4
[2018-08-06 15:59] VITALS: BP 107/75; PULSE 88; RESP 18; TEMP 36.3
--- NOTE | 2018-08-06 16:17 | NURSING ---
this RN reviewed student nurses' charting for most recent vital signs and round. they are accurate. no further needs at this time and will continue to monitor.
[2018-08-06 20:05] VITALS: BP 113/67; PULSE 84; RESP 16; TEMP 36.5
--- NOTE | 2018-08-07 01:10 | NURSING ---
This RN went into room and pt. was anxious from infant crying. Pt. reports has been nursing for an hour but is still crying. Pt. also concerned with rash and repeatedly asking about it. Pt. seems anxious and has occasionally been tearful throughout the night.
[2018-08-07 02:55] VITALS: BP 112/74; PULSE 76; RESP 18; TEMP 36.6; O2SAT 96
[2018-08-07] MEDS: Naproxen 250 MG Tablet 500 MG PO ×2 (03:27→12:01)
--- NOTE | 2018-08-07 07:27 | PCM.PN.OB ---
Patient Problems: Active and Suspected Problems (Last Reviewed 07/31/18 @ 11:55 by Suni Trinh) Active labor at term (Acute) Subjective: doing well no complaints pain controlled no CP SOB N V ambulating well tolerating po lochia moderate, going well - Physical Exam General: Alert, Oriented x3 Abdomen: Soft, Non Tender, - - FF below U Vital Signs Temp Pulse Resp BP Pulse Ox 97.8 F 76 18 112/74 96 08/07/18 02:55 08/07/18 02:55 08/07/18 02:55 08/07/18 02:55 08/07/18 02:55 Oxygen Delivery Method Room Air Weight: 189 lb 9.561 oz Body Mass Index (BMI) 32.5 Intake and Output for Last 24 Hours 08/05/18 08/06/18 08/07/18 23:59 23:59 23:59 Intake Total 2 / 2082 Output Total 150 / 150 600 / 600 Balance -150 / -150 1482 / 1482 Medical Necessity - Tobacco Use Smoking Status: Never smoker Assessment/Plan All Active Problems (Last Reviewed 07/31/18 @ 11:55 by Suni Trinh) Active labor at term (Acute) Uterine size-date discrepancy, third trimester (Acute) Abnormal glucose level (Acute) Asymptomatic bacteriuria during in first trimester (Acute) (Acute) Normal (Acute) screening encounter (Resolved) UTI in (Resolved) s/p PPD # 2 1. routine post delivery care 2. breast feeding- support given, still with some difficulty latching 3. rh positive 4. rubella immune 5. Home today
--- NOTE | 2018-08-07 07:28 | PCM.DCVAG ---
Additional Instructions: If you experience any of the following, contact your healthcare provider. Bleeding that soaks a pad every hour for 2 hours Fever 100.4 or higher Unrelieved incision or abdominal pain Swelling, redness, discharge or bleeding from your incision or episiotomy site Your incision begins to separate Problems urinating (including inability to urinate or burning while urinating). Visual changes Severe headache Flu-like symptoms Pain or redness in one of both of your breasts Pain, warmth, tenderness or swelling in your legs, especially the calf area Frequent nausea and vomiting Symptoms of depression or anxiety If you experience any of the following, call 911 or go to the nearest Emergency Room. Chest pain Problems breathing Seizure activity Partial or complete paralysis of a body part, slurred speech, weakness or drooping of the face, or a sudden inability to walk or hold your balance Allergies/Adverse Reactions: Allergies No Known Allergies Allergy (Verified 07/31/18 11:55) Medications to take at Discharge docosahexanoic acid 200 mg capsule mg PO 12/24/17 ondansetron HCl 4 mg tablet 4 mg PO Q6H PRN #60 tab 06/10/18 Primary Care Physician: Alejandro Major MD [Primary Care Provider] - Test Results: Test results from this visit will be discussed in further detail at your follow-up appointment, if applicable.
--- NOTE | 2018-08-07 07:29 | DCINST_ITS ---
Additional Instructions: If you experience any of the following, contact your healthcare provider. * Bleeding that soaks a pad every hour for 2 hours * Fever 100.4 or higher * Unrelieved incision or abdominal pain * Swelling, redness, discharge or bleeding from your incision or episiotomy site * Your incision begins to separate * Problems urinating (including inability to urinate or burning while urinating). * Visual changes * Severe headache * Flu-like symptoms * Pain or redness in one of both of your breasts * Pain, warmth, tenderness or swelling in your legs, especially the calf area * Frequent nausea and vomiting * Symptoms of depression or anxiety If you experience any of the following, call 911 or go to the nearest Emergency Room. * Chest pain * Problems breathing * Seizure activity * Partial or complete paralysis of a body part, slurred speech, weakness or drooping of the face, or a sudden inability to walk or hold your balance Allergies/Adverse Reactions: Allergies No Known Allergies Allergy (Verified 07/31/18 11:55) Medications to take at Discharge docosahexanoic acid 200 mg capsule mg PO 12/24/17 ondansetron HCl 4 mg tablet 4 mg PO Q6H PRN #60 tab 06/10/18 Primary Care Physician: Alejandro Major MD [Primary Care Provider] - Test Results: Test results from this visit will be discussed in further detail at your follow- up appointment, if applicable.
[2018-08-07 08:00] VITALS: BP 110/74; PULSE 81; RESP 16; TEMP 36.6
[2018-08-07] MEDS: Senna/Docusate Sodium 1 Tablet PO (10:59)
[2018-08-07 13:30] VITALS: BP 113/68; PULSE 87; RESP 18; TEMP 36.3
--- NOTE | 2018-08-07 16:25 | CASEMGMT ---
Social Work Assessment Labor and Delivery Unit Date of Referral: 08/07/2018 Time of Referral: 021 Referred By: Dr. Ernandez; Farzana Franco RN Date of Intervention: 08/07/2018 Time of Intervention: 1240 Reason for Referral: maternal anxiety History obtained from: medical record, mother of baby (MOB) Sophie Martinez, and father of baby (FOB); MOB's mother Lacey Monroe also present and participating in conversation. Household composition: MOB and FOB live in a first floor condo. Home situation is reported to be safe and adequate. Intend to take baby to this home. Patient's parent/guardian status: MOB is 27 year old female to ANIYAH Martinez since November 2015. No indications of domestic violence or safety concerns; in admission assessment MOB provided negative response regarding any safety concerns. Baby girl Bill is the first child for both. Medical History: DARIAN is G1, P0 to 1 after delivering Bill. care good and started early at 8 weeks. Baby born at 6 pounds 9 ounces, Apgars 8 and 9 at 1 and 5 minutes of life. Educational Status: DARIAN is able to read, write and to understand what is read. No comprehension issues. Financial Status: DARIAN works fulltime for an [employer] and ANIYAH is a bolanos. Infant Supplies: It is reported the family has needed supplies to get started including a safe sleep space, car seat, clothing, diapers, wipes, bottles, breast pump, and formula on the off chance breast feeding does not work out for DARIAN. Childcare/Caregiver(s): MOB and FOB; when DARIAN returns to work Lacey will be the care provider to Bill. Transportation: No issues and transportation is reported to be reliable. Programs/Agencies Involved: No agency involvement. Plan to use Dr. Carrero for after care pediatric needs. Behavioral Health Issues: Mental Health History: MOB denies any formal diagnosis of depression or anxiety thought admits to feel stressed sometimes. No history of treatment. Substance Use History: No reports or indication of substance use or abuse issues. Family History: MOB denies any family history. Drug Screens: None noted in the chart. Family/Social Stressors: No reported stressors prenatally. MOB reports yesterday was stressful for MOB, and that MOB was having a harder time due to MOB feeling stressed in not having much milk yet and baby being an overachiever with feeding. MOB dealing with feelings associated that not providing enough nutrition for the baby. MOB reports that today is better, feeling more positive. MOB reports that will continue to try and breast feed but is also open to formula feeding should there continue to be a struggle with milk supply or worrying about baby getting enough from MOB. Both FOB and MOB's mother voiced support to MOB in however MOB chooses to feed the baby in the fci. Support Systems: FOB, MOB's mother, and FOB's mother are all reported to be supports to MOB, willing to help with the baby if needed. FOB will be off the rest of the week and MOB's mom is staying at the home for a short time in assisting with transition home. Depression/Shaken Baby/Safe Sleeping : Reviewed safe sleeping and shaken baby prevention. depression and anxiety addressed with MOB and family. Educated to risk factors, signs and symptoms, as well as importance of seeking out and accepting support should symptoms arise. MOB voices understanding that it is important to let the doctor know if symptoms arise. ASSESSMENT: MOB held baby during social work visit. MOB calm and gentle, enfolded baby and gazed at baby intermittently. MOB voices having positive feelings for baby Bill and to feel a connection already. MOB and FOB both report that are working on learning the baby's needs as well as how to help support each other as parents with Bill. MOB reports to be feeling better emotionally today as compared to yesterday. FOB showing insight and support to MOB in the comments that FOB voiced regarding belief that sometimes it is not a physical issues stopping one from breast feeding but it could be an emotional stressor linked with breast feeding and that the emotional piece needs to be taken are of as much as the physical. FOB voicing that will support whatever MOB decides to do for the baby for feeding. MOB and FOB report to have needed baby supplies and support from family. MOB voiced interest into looking at WIC and accepted some information from social staff worker regarding income guidelines. MOB and FOB accepting information on nurse visit and [facility] but declines actual referrals. PLAN: MOB and baby to home. Resources given for [facility] agencies, nurse visits, [facility] and depression. No other services requested or indicated. -MITA Gray, KNIFE BLADE POLISHER
== END 2018-08-07 13:30 | disposition home or self-care (01) | DRG 807 ==
LOC: WPOUT 15:54 → WP 15:54
PROVIDERS: Admitting Provider Obstetrics & Gynecology; Family Provider Family Medicine; PCP Family Medicine; Referring Provider Obstetrics & Gynecology; Visit Provider Obstetrics & Gynecology
DX: O70.1 Second degree perineal laceration during delivery (principal); Z37.0 Single live birth; O77.0 Labor and delivery complicated by meconium in amniotic fluid; Z3A.40 40 weeks gestation of pregnancy
CPT/HCPCS: 59025; 59050; 85025; 86850; 86900; 99218; J7120; A4216; G0378

== ENCOUNTER → 2020-02-12 09:58 | Outpatient (CLI) | payer BC, SELFPAY ==
[2019-10-30 11:06] VITALS: BMI 30.4
[2020-02-12 12:45] LABS: Anion Gap 5 (5-15); BUN 9 mg/dL (7-18); BUN/Creat Ratio 9.5 RATIO (10-20); Calcium,Total 9.5 mg/dL (8.5-10.1); Chloride 109 mmol/L (98-107); Creatinine, Serum 0.95 mg/dL (0.55-1.02); EST Glomerular Filtration Rate 74 mL/min (>60); Est Glom Filt Rate - Afr Amer 90 mL/min (>60); Glucose 93 mg/dL (74-106); Potassium 4.1 mmol/L (3.5-5.1); Sodium Level 139 mmol/L (136-145); Thyroid Stim Hormone (TSH) 2.55 uIU/mL (0.358-3.74)
== END ==
PROVIDERS: PCP Family Medicine; Referring Provider Family Medicine; Visit Provider Family Medicine
DX: R63.4 Abnormal weight loss (principal)
CPT/HCPCS: 36415; 80048; 84443

== ENCOUNTER → 2020-02-16 | Outpatient (CLI) | payer BC, SELFPAY ==
[2019-10-30 11:06] VITALS: BMI 30.4
== END | disposition home or self-care (01) ==
PROVIDERS: Family Medicine
DX: Z20.828 Contact with and (suspected) exposure to other viral communicable diseases (principal)
CPT/HCPCS: 87635; U0003

== ENCOUNTER 2020-07-26 10:50 | Outpatient (CLI) | payer BC, SELFPAY ==
[2019-10-30 11:06] VITALS: BMI 30.4
[2020-07-26 10:57] VITALS: BP 108/71; PULSE 86; RESP 16; TEMP 36.6; O2SAT 100; BMI 29.9
[2020-07-26] MEDS: 0.9% NaCl Peripheral Flush Adult/Peds IV (11:18)
[2020-07-26] MEDS: Ondansetron 4 MG/2 ML Vial IV (11:24)
[2020-07-26] MEDS: Dextrose 5%-Lactated Ringers 1,000 ML 999 ML IV (11:24)
[2020-07-26 12:35] VITALS: BP 136/74; PULSE 64; RESP 16; TEMP 36.5; O2SAT 100
== END 2020-07-26 14:00 | disposition home or self-care (01) ==
PROVIDERS: PCP Family Medicine; Referring Provider Obstetrics & Gynecology; Visit Provider Obstetrics & Gynecology
DX: E86.0 Dehydration (principal)
CPT/HCPCS: 96361; 96374; A4216; J2405

== ENCOUNTER → 2020-08-09 13:17 | Outpatient (CLI) | payer BC, SELFPAY ==
[2020-07-26 10:57] VITALS: BMI 29.9
[2020-08-09] MEDS: Ondansetron 4 MG/2 ML Vial IV (14:11)
[2020-08-09] MEDS: 0.9% NaCl Peripheral Flush Adult/Peds IV (14:12)
[2020-08-09] MEDS: Dextrose 5%-Lactated Ringers 1,000 ML 999 ML IV (14:12)
[2020-08-09 14:13] VITALS: BP 113/70; PULSE 71; RESP 16; TEMP 36.1; O2SAT 100; BMI 29.9
[2020-08-09 15:21] VITALS: BP 110/61; PULSE 69; RESP 16; O2SAT 100
== END ==
PROVIDERS: PCP Family Medicine; Referring Provider Nurse Practitioner Women's Health; Visit Provider Nurse Practitioner Women's Health
DX: E86.0 Dehydration (principal)
CPT/HCPCS: 96361; 96374; A4216; J2405

== ENCOUNTER → 2020-08-11 13:02 | Outpatient (CLI) | payer BC, SELFPAY ==
[2020-08-11 10:20] VITALS: BMI 29.0
[2020-08-11 14:19] LABS: Amphetamine Urine VISTA NEGATIVE (<1000 ng/mL); Barbiturate Urine VISTA NEGATIVE (< 200 ng/mL); Benzodiazepine Urine VISTA NEGATIVE (< 200 ng/mL); Cocaine Urine VISTA NEGATIVE (< 300 ng/mL); Ecstacy Urine VISTA NEGATIVE (< 500 ng/mL); Methadone Urine VISTA NEGATIVE (< 300 ng/mL); PCP Urine VISTA NEGATIVE (< 25 ng/mL); THC Urine VISTA NEGATIVE (< 50 ng/mL); Vista UDS pH Range 6
[2020-08-13 04:10] LABS: Chlamydia By Nucleic Acid AMP Negative (Negative)
[2020-08-13 12:26] LABS: Gonococcus By Nucleic Acid AMP Negative (Negative)
[2020-08-13 17:18] LABS: HPV Reflexed? NOT INDICATED
== END ==
PROVIDERS: PCP Family Medicine; Referring Provider Obstetrics & Gynecology; Visit Provider Obstetrics & Gynecology
DX: Z34.80 Encounter for supervision of other normal pregnancy, unspecified trimester (principal); Z12.4 Encounter for screening for malignant neoplasm of cervix
CPT/HCPCS: 80307; 87086; 87088; 87491; 87591; 88175; G0145

== ENCOUNTER → 2020-08-20 11:51 | Outpatient (CLI) | payer BC, SELFPAY ==
[2020-08-11 10:20] VITALS: BMI 29.0
[2020-08-20 11:58] VITALS: BP 125/78; PULSE 94; RESP 16; TEMP 36.3; O2SAT 98; BMI 29.0
[2020-08-20] MEDS: Ondansetron 4 MG/2 ML Vial IV (12:18)
[2020-08-20] MEDS: 0.9% NaCl Peripheral Flush Adult/Peds IV (12:18)
[2020-08-20] MEDS: Dextrose 5%-Lactated Ringers 1,000 ML 999 ML IV (12:18)
[2020-08-20 13:29] VITALS: BP 123/70; PULSE 84; RESP 16; TEMP 36.6
== END ==
LOC: MEDOUTP 11:53
PROVIDERS: PCP Family Medicine; Visit Provider Obstetrics & Gynecology
DX: E86.0 Dehydration (principal)
CPT/HCPCS: 96361; 96374; A4216; J2405

== ENCOUNTER → 2020-08-25 16:00 | Outpatient (CLI) | payer BC, SELFPAY ==
[2020-08-20 11:58] VITALS: BMI 29.0
[2020-08-25 17:05] LABS: NATERA MAILED SPECIMEN
[2020-08-25 17:18] LABS: Absolute Lymphocyte Count 1.58 X10^3/uL (0.83-4.51); Absolute Neutrophil Count 4.5 X10^3/uL (2.0-7.7); Basophil# 0.05 X10^3/uL; Basophil% 0.7 % (0-1); Eosinophil# 0.11 X10^3/uL; Eosinophils% 1.6 % (0-5); Hematocrit 41.2 % (37-47); Hemoglobin 13.5 g/dL (12.0-15.0); Lymphocyte # 1.58 X10^3/ul (0.83-4.51); Lymphocyte % 22.6 % (19-41); Mean Corp Hgb Conc 32.8 g/dL (32-36); Mean Corpuscular Hgb 28.6 pg (27.0-32.0); Mean Corpuscular Volume 87.3 fL (81-99); Mean Platelet Vol. 10.3 fl (6.2-12.0); Monocyte# 0.68 X10^3/uL; Monocyte% 9.7 % (0-10); NRBC Flagged by Analyzer 0 % (0-5); Neutrophil # 4.54 X10^3/uL (2.7-7.7); Neutrophil % 65.1 % (47-70); Platelet Count 285 K/mm3 (150-450); RBC Distribution Width CV 11.9 % (11.6-14.6); RBC Distribution Width SD 38.2 fl (35.1-43.9); Red Blood Count 4.72 M/mm3 (4.2-5.4)
[2020-08-26 08:48] LABS: HIV - WCH Non-Reactive (Nonreactive); Hepatitis B Surface Antigen Non-Reactive (Nonreactive); Hepatitis C Antibody Non-Reactive (Nonreactive); Rubella IgG Reactive (Nonreactive); Syphilis Antibodies Non-reactive
== END ==
PROVIDERS: PCP Family Medicine; Referring Provider Obstetrics & Gynecology; Visit Provider Obstetrics & Gynecology
DX: Z34.80 Encounter for supervision of other normal pregnancy, unspecified trimester (principal)
CPT/HCPCS: 36415; 85025; 86703; 86762; 86780; 86803; 86850; 86900; 86901; 87340

== ENCOUNTER → 2020-10-07 11:19 | Outpatient (CLI) | payer BC, SELFPAY ==
[2020-10-07 10:59] VITALS: BMI 29.0
== END ==
PROVIDERS: PCP Family Medicine; Referring Provider Obstetrics & Gynecology; Visit Provider Obstetrics & Gynecology
DX: Z36.9 Encounter for antenatal screening, unspecified (principal)
CPT/HCPCS: 36415

== ENCOUNTER 2020-10-19 07:45 | Day surgery (SDC) | payer BC, SELFPAY ==
[2020-10-14 13:38] VITALS: BMI 29.0
[2020-10-19] VITALS (8 sets, daily range): BP systolic 102–117; BP diastolic 55–79; PULSE 73–85; RESP 16; TEMP 36.3–36.8; O2SAT 99–100; BMI 27.8
--- NOTE | 2020-10-19 08:13 | EKG12_ITS ---
Test Reason : PRE OP Blood Pressure : / mmHG Vent. Rate : 064 BPM Atrial Rate : 064 BPM P-R Int : 136 ms QRS Dur : 086 ms QT Int : 386 ms P-R-T Axes : 014 023 032 degrees QTc Int : 398 ms Normal sinus rhythm Normal ECG No previous ECGs available Confirmed by SHRADDHA PINTO, TREVOR ([id number]), primer expeditor and drier MIQUEL CHINCHILLA ([id number]) on 10/22/2020 1:11:48 PM Referred By: Max Hood Confirmed By:TREVOR LLANES MD
[2020-10-19] MEDS: Lactated Ringers 1,000 ML 100 ML IV (08:15)
--- NOTE | 2020-10-19 09:12 | PCM.HP.BLA ---
History and Physical Date of Admission: 10/19/20 Intake Vital Signs 10/14/20 13:35 10/14/20 13:38 Height 5 ft 3 in Weight: 166 lb 2 oz BMI 29.4 29.0 BP 104/69 Blood Pressure Location Rt brachial Position Sitting Respiration 16 Pulse 82 Pulse Source Monitor Temp 98.0 F Temp Source Temporal Pulse Oximetry (%) 99 Oxygen Delivery Method room air Intake Visit Reasons: GALLSTONES Chief Complaint: [facility] ED f/u- Gallstones Sider Mechanic Required: No Accompanied by: Self Is patient in pain?: No Allergies No Known Allergies Allergy (Verified 10/14/20 13:37) Medications multivitamin no.47-iron fum 27 mg-folate no.1 1 mg-dha 300 mg capsule cap PO 08/03/20 [History Confirmed 10/14/20] ondansetron 4 mg disintegrating tablet 4 mg PO Q8H PRN #90 tablet 08/11/20 [Rx Confirmed 10/14/20] PFSH Medical History Gallstones Migraines Norovirus Surgical History History of esophagogastroduodenoscopy (EGD) (~05/2015) Family History Father Hypertension Aunt Breast cancer Grandmother Heart disease Social History adopted: No household members: family housing: house number of children: 1 current occupational status: employed 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 The patient was recently in the emergency room with a right upper quadrant pain attack. She says this lasted about 12 hours. She has had several attacks in this area and uses warm compresses. The patient had ultrasound during that admission and she had several stones in the gallbladder. The patient is also 18 weeks . Patient is currently not having any nausea or vomiting or fevers or chills. ROS General General: No weight change, appetite, fatigue, colon cancer, breast cancer or weakness HEENT HEENT: No difficulty swallowing, eye injury, eye surgery, swollen glands or hoarseness Endo Endocrine: No thyroid disease, diabetes mellitus, thyroid cancer, Hair loss, heat intolerance or cold intolerance Skin Skin: No rash or changing moles Musc Musculoskeletal: No back problems, arthritis, rheumatoid arthritis, gout or joint pain Cardio Cardiovascular: No murmur, pacemaker, heart disease, atrial fibrillation, high blood pressure, heart attack, heart stent, palpitations, shortness of breat with exertion or chest pain Psych Psychiatric: No depression, anxiety or hearing voices Resp Respiratory: No shortness of breath, No sleep apnea, No cough, No COPD, No asthma, No emphysema and No wheezing Gastro Gastrointestinal: No abdominal pain, Yes nausea or vomiting, No diarrhea, No constipation, No blood in stool, No acid reflux, No hemorrhoids, No ulcers, Yes gallbladder problem and No black,tarry stools Facundo Hematologic: No blood thinners, No blood disorders, No bleeding, No anemia and No blood clots Neuro Neurologic: No weakness Exam Const General: cooperative Orientation: alert and oriented x3 [facility] Head: normal to inspection Neck Neck: normal visual inspection and full ROM Chest Chest palpation & inspection: normal inspection of the chest Resp Effort & Inspection: normal respiratory effort Auscultation: clear to auscultation bilaterally Cardio Rate: regular rate Rhythm: regular rhythm GI Inspection: non-distended Palpation: soft and nontender Other: Gravid uterus Skin General: no rashes or lesions noted Neuro General: patient alert and patient oriented x3 Extrem General: full ROM Psych Appearance: grossly normal Mental Status: mental status grossly normal Assessment and Plan Assessment and Plan (1) Cholelithiasis: Status: Acute Qualifiers: Cholelithiasis location: gallbladder Cholecystitis presence: without cholecystitis Biliary obstruction: without biliary obstruction Qualified Code(s): K80.20 - Calculus of gallbladder without cholecystitis without obstruction (2) : Status: Acute Qualifiers: Weeks of gestation: 17 weeks Qualified Code(s): Z3A.17 - 17 weeks gestation of Comment: genetic- low risk and AFP; declines carrier. ordered anatomy scan at [facility] Plan - Dr. Max Hood MD: The patient has symptomatic cholelithiasis. Ultrasound showed gallstones and she is not currently having pain but when she does have any fatty foods she experiences right upper quadrant pain. I discussed with her the SAGES recommendations for symptomatic cholelithiasis in patients. The guidelines recommend that patients with symptomatic cholelithiasis not wait until after the end of to have cholecystectomy. They recommend laparoscopic cholecystectomy during second trimester if possible. I discussed this with her and I discussed the risks of the procedure. I discussed the procedure in detail with the patient. I discussed the risks, benefits, and alternatives of the procedure. I discussed the risks including but not limited to bleeding, infection, injury to surrounding organs such as the liver, bile duct, bowels. I did discuss the possibility of having to convert to an open procedure as well as the possibility that if any injuries occurred this may necessitate further surgery at a tertiary care center. I discussed the increased risks due to her such as a premature labor and injury to the uterus. Max Hood MD Pager: [facility] [address] [place] [address], [address] [place] [address] Office: Fax: [phone] I have re-examined the patient. There are no clinical changes since date of exam.
[2020-10-19] MEDS: Cefotetan 2 GM in 0.9% NS 100 ML IV (09:26)
--- NOTE | 2020-10-19 09:35 | GALL_PTH ---
PATIENT: CHELSEA WEBB [place] [facility] [place][id number] AGE/SX: 29/F ROOM: RE10/19/[address]: Dr. Max Hood MD : 1990 BED: DIS: 10/19/2020 SPEC #: [id number] RECD: 10/19/20 11:02 STATUS: BREEZY REJefferson #: [id number] JAY JAY: 10/19/20 09:[address]: Max Hood DEPT: SURGICAL PATHOLOGY RECD BY: Vita Mays ENTERED: 10/19/20 11:37 SP TYPE: YONG MORENO DR: Dr. Alejandro Major MD Tissues: Gallbladder, NOS Procedures: Surgery Specimen Level III HEADER OPERATION: Laparoscopic cholecystectomy with IOC PRE-OP DIAGNOSIS: Cholelithiasis TISSUE SUBMITTED: Gallbladder MICROSCOPIC DIAGNOSIS Gallbladder, cholecystectomy: Chronic cholecystitis and cholelithiasis. AM:vanda 10/20/2020 MICROSCOPIC DESCRIPTION Slides are reviewed. GROSS DESCRIPTION Received is one container labeled with the patient's name and designated gallbladder. The specimen consists of a gallbladder measuring 8 cm in length and up to 4 cm in diameter. The external surface is pink-lo, smooth and glistening for the most part. Focally it is granular, hemorrhagic and contains cautery artifact. The gallbladder contains green-yellow mucoid bile and multiple mulberry yellowish stones measuring in aggregate 2 x 2.5 x 0.5 cm and 0.1 to 0.2 cm in greatest dimension. The mucosa is bile-stained and without any mass lesions. The gallbladder wall measures up to 0.1 cm in thickness. Pharmacy Messenger sections from the gallbladder and the cystic duct are submitted in one cassette. / SJ:vanda 10/19/20 TC:3 [facility]: [id number]
--- NOTE | 2020-10-19 09:47 | RAD_ITS ---
History: Lap marlin Operative cholangiogram: Findings: 3 fluoroscopic spot views of the right upper quadrant obtained in the OR with contrast injected into the cystic duct. Contrast outlines nondilated biliary tree. Distal portion of the common bile duct is not visualized nor is the duodenum. Distal common bile duct obstruction or stone is not excluded by this exam. IMPRESSION: As above. at 1054 Reported and signed by: Dominguez Leal MD Electronically Signed: Dominguez Leal MD at 10:53 EDT Tel , Service support , RAD/Cholangiogram O.R./Subsequent
--- NOTE | 2020-10-19 09:47 | RAD_ITS ---
STUDY: INTRAOPERATIVE CLINICAL ANEURYSM. REASON FOR EXAM: Female, 29 years old. LAPAROSCOPIC, CHOLECYSTECTOMY WITH POSSIBLE IOC FLUOROSCOPY TIME (if supplied): ( 39 seconds ) minutes/seconds. Single image was submitted. TECHNIQUE: Intraoperative cholangiogram was performed by the surgeon. Imaging was provided. COMPARISON: None. FINDINGS: Mildly dilated common bile duct. The distal portion of the common bile duct is not visualized. RAD/Cholangiogram/ O R,Initial IMPRESSION: Distal portion of the common bile duct is not visualized. Electronically Signed: Amadou Pemberton MD at 10:07 EDT , Service support ,
[2020-10-19] MEDS: Bupiv/Epi 0.25% 30 ML Vial (09:55)
[2020-10-19] MEDS: Glucagon 1 MG/ML Syringe (10:10)
--- NOTE | 2020-10-19 10:48 | OP.PCM_ITS ---
Problems Associated Problem List Diagnoses (1) Cholelithiasis: Report of Operation Date of Procedure: 10/19/20 Pre-Operative Diagnosis: Cholelithiasis and biliary colic Post-Operative Diagnosis: Same Surgery/Procedure Performed:: Laparoscopic cholecystectomy with cholangiogram Description of Surgical Findings:: Good filling of the biliary tree and cholangiogram but nonfilling of the duodenum. Specimen's removed: Gallbladder and contents Description of Procedure: After obtaining informed consent patient was brought back to the operating room. General anesthesia was induced. The abdomen was prepped and draped in usual sterile fashion. A small midline incision was made inferior to the umbilicus and deepened to the level of fascia. The fascia was elevated and incised. Next the peritoneum was elevated and incised in the same fashion. Finger sweep was performed and the Sanders trocar was placed into the abdomen. The balloon was inflated. The abdomen was inflated to 12 mmHg. Next a camera was introduced into the abdomen and the abdomen was inspected. There is no injury to the uterus. Next under direct visualization three 5-mm ports were placed one subxiphoid and 2 subcostal. Next the gallbladder was elevated and retracted toward the right shoulder. The peritoneum was stripped from the g allbladder. The infundibulum was located and retracted laterally. Next the triangle of Calot was dissected and the cystic duct and cystic artery were identified. Cholangiograms were performed. A dulce was made in the right upper quadrant and a Ranfac catheter was placed into the abdomen. A clip was placed in the proximal cystic duct and small opening was created in the cystic duct. The Ranfac catheter was placed into this and a clip was placed. Contrast was instilled. There was good filling of the cystic duct and biliary tree but there is nonfilling of the duodenum. Glucagon was given and 5 minutes were waited and repeat images were obtained. I have still was unable to fill the duodenum with contrast. There was no meniscus sign indicating a stone in the cystic duct was normal size. The clip was removed from the distal cystic duct and the Ranfac catheter was removed. Three hemolock clips were placed across the cystic duct. The cystic duct was then divided leaving 2 clips on the stump. The cystic artery was clipped and divided in the same fashion. The hook cautery was then used to take the gallbladder off of the gallbladder bed. Hemostasis was obtained. Gallbladder fossa was irrigated and no active bleeding or bile leakage was noted. Next the camera was introduced in the subxiphoid port. An Endopouch bag was placed through the umbilical port and the gallbladder was placed into it. The gallbladder was then removed through the umbilical incision. The camera was then reinserted through the umbilical port. The gallbladder fossa was inspected once more and noted to be hemostatic with no leaking bile. The abdomen was suctioned dry. The 5 mm ports were removed under direct visualization. The umbilical port was then removed and the air was removed from the abdomen. Next using an 0 Vicryl suture the umbilical fascia was closed in a [id number]-[id number] fashion. The umbilical port site was irrigated local anesthetic was administered to all the incisions. All the incisions were closed with interrupted subcuticular 4-0 Monocryl sutures followed by Steri- Strips and dressings. The patient was awoken and taken to PACU in stable condition. Admit VTE Documentation VTE Mechan Device Prophylaxis: SCD's
--- NOTE | 2020-10-19 10:52 | PN_ITS ---
Progress Note There was nonfilling of the duodenum on cholangiogram. There is no meniscus sign and she was essentially asymptomatic before surgery. I believe that she does not have a filling defect but rather spasm of the sphincter of Oddi. Glucagon was given but this did not allow for contrast passage. I will see how she wakes up from surgery and if she is comfortable I will have her come back for repeat LFTs tomorrow morning as an outpatient. If she is having significant discomfort I will admit her for observation and perform an MRCP as well as check morning LFTs and decide if ERCP is needed. Max Hood MD Pager: [facility] [address] [place] [address], [address] [place] [address] Office:
--- NOTE | 2020-10-19 10:53 | EX.PCM.DISCH ---
Discharge Instructions Procedure Gallbladder Diet Discharge Diet: Light diet - advance as tolerated Activity Discharge Activity: May Not Drive (for 2-3 days or while taking narcotic pain medications.) and - (Do not drive, work heavy equipment or sign legal documents for 24 hours.) May shower in (days): 1 Lifting Restrictions: 20 lbs for 2 weeks Additional Activity Instructions:: Pain medication may cause nausea. You should typically eat light foods as you take your pain medications. Pain medication may also cause constipation. If this is a problem for you, please discuss with your doctor. Dressing / Incision Call your doctor if your incision/area has: Continuous Slow Oozing, Sudden Increased Bleeding, Increased Pain/ Swelling, Increased Redness and Foul Smelling Discharge Call your doctor if you observe: Fever of 101 or Higher Suture Line Care: Avoid Pulling/Pushing and Avoid Pinching/Bending Remove Dressing in: 2 days Cleanse incision/area with: Soap & Water Additional Dressing/Incision Instructions:: Leave operative bandaids on for 2 days. When you remove dressing, leave Steri-Strips on until your follow-up appointment, or until the Steri-Strips fall off on their own. Follow Up Care Please Follow Up With: Max Hood MD When: Please call to schedule 2 week follow up appointment. [phone] Test Results: Test results from this visit will be discussed in further detail at your follow-up appointment, if applicable. Pending Tests Upon Discharge: LFTs are ordered. Please follow-up for these tomorrow morning and remain n.p.o. tomorrow until results are back. Discharge Plan Admission Attending Provider: Max Hood Primary Care Provider: Alejandro Major Discharge Orders/Prescriptions Prescriptions: New oxycodone-acetaminophen [Percocet] 5-325 mg tablet 1 tab PO Q6H PRN (Reason: pain) 3 Days Qty: 10 RF: 0 No Action ondansetron 4 mg tablet,disintegrating 4 mg PO Q8H PRN (Reason: nausea and vomiting) Qty: 90 RF: 3 PNV-DHA 27 mg iron-1 mg -300 mg capsule 1 cap PO DAILY RF: 0 Other Ambulatory Orders: Liver Profile (Routine) Timeframe: 1 Day Facility: [facility] - Location: Laboratory Ordered By: Dr. Max Hood Referrals / Follow Up: Alejandro Major MD [Primary Care Provider] - Disposition Disposition (needs filled in before D/C Order can be placed): Home, Self Care
[2020-10-19] MEDS: Acetaminophen 325 MG Tablet 650 MG PO (11:53)
== END 2020-10-19 14:35 | disposition home or self-care (01) ==
LOC: SDC 07:45 → AC 07:46
PROVIDERS: PCP Family Medicine; Referring Provider Surgery; Visit Provider Surgery
PROC: (CPT 47610; principal; 2020-10-19 09:15)
DX: O26.612 Liver and biliary tract disorders in pregnancy, second trimester (principal); K80.20 Calculus of gallbladder without cholecystitis without obstruction; Z3A.17 17 weeks gestation of pregnancy
CPT/HCPCS: 47563; 74300; 74301; 76000; 87426; 88304; 93005; J7120; J1610; J2405

== ENCOUNTER → 2020-10-20 07:12 | Outpatient (CLI) | payer BC, SELFPAY ==
[2020-10-19 08:33] VITALS: BMI 27.8
[2020-10-20 09:01] LABS: AST(SGOT) 134 U/L (15-37); Alanine Aminotransfer ALT/SGPT 87 U/L (13-56); Albumin, Serum 2.9 g/dL (3.2-5.0); Alkaline Phosphatase 97 U/L (45-117); Bilirubin, Direct 0.39 mg/dL (0.00-0.30); Globulin 3.8 g/dL (2.2-4.2); Protein, Total 6.7 g/dL (6.4-8.2)
== END ==
PROVIDERS: PCP Family Medicine; Referring Provider Surgery; Visit Provider Surgery
DX: K80.20 Calculus of gallbladder without cholecystitis without obstruction (principal)
CPT/HCPCS: 36415; 80076

== ENCOUNTER → 2020-10-27 07:46 | Outpatient (CLI) | payer BC, SELFPAY ==
[2020-09-09 10:37] VITALS: BMI 29.0
[2020-10-19 08:33] VITALS: BMI 27.8
--- NOTE | 2020-10-27 07:50 | US_ITS ---
STUDY: SECOND AND THIRD TRIMESTER OBSTETRICAL ULTRASOUND REASON FOR EXAM: Female, 29 years old anatomy scan LMP: TECHNIQUE: Transabdominal TECHNICAL QUALITY: Adequate. PRIOR ULTRASOUND: None. FINDINGS: There is a single intrauterine fetus. The fetus is in a transverse lie with the head on the maternal right side. There is demonstrated cardiac activity with a heart rate of 145 bpm. There is a normal amniotic fluid volume. The largest amniotic fluid pocket measures 6.2 cm. The amniotic fluid index (JUAN) is cm. The placenta is posterior in location and is not low lying. There are Grade 0 placental changes. The cervix measures 4.4 cm in length. The adnexal regions are not visualized. BIOMETRY: BPD: 4.2 cm: 18 weeks, 4 days HC: 16.6 cm: 19 weeks, 1 days AC: 14.9 cm: 20 weeks, 1 days FL: 3.4 cm: 20 weeks, 4 days CI: 70.9 FL/BPD: 81.3 FL/HC: 20.4 FL/AC: 22.7 HC/AC: 1.11 age by current US: 19 weeks, 3 days. ELISA by current US: 03/20/2021. Estimated weight: 336 grams, +/- 50 grams, 24 %. Age by LMP: 20 weeks, 4 days. ELISA by LMP: 03/12/2021. ANATOMY: Gender: Female Cranium: Normal lateral ventricles. Normal choroid plexus. Normal cerebellum. Normal cisterna magna. Normal face, nose and lips. Chest: Normal 4-chamber heart. Abdomen/Pelvis: Normal diaphragm. Normal stomach. Normal abdominal wall. Normal cord insertion. Normal 3 vessel cord. Normal kidneys. Normal bladder. Spine: Normal cervical spine. Normal thoracic spine. Normal lumbar spine. Normal sacrum. Extremities: Normal bilateral upper extremities. Normal bilateral lower extremities. US/OB Anatomy Scan IMPRESSION: Living intrauterine of 19 weeks 3 days as described above. Electronically Signed: Steve Rios MD at 14:34 EDT Tel , Service support ,
== END ==
PROVIDERS: PCP Family Medicine; Referring Provider Obstetrics & Gynecology; Visit Provider Obstetrics & Gynecology
DX: O26.842 Uterine size-date discrepancy, second trimester (principal); Z3A.19 19 weeks gestation of pregnancy
CPT/HCPCS: 76805; 76817

== ENCOUNTER → 2020-11-02 13:23 | Outpatient (CLI) | payer BC, SELFPAY ==
[2020-10-19 08:33] VITALS: BMI 27.8
[2020-11-02 14:21] LABS: AST(SGOT) 18 U/L (15-37); Alanine Aminotransfer ALT/SGPT 16 U/L (13-56); Albumin, Serum 2.9 g/dL (3.2-5.0); Alkaline Phosphatase 103 U/L (45-117); Bilirubin, Direct 0.09 mg/dL (0.00-0.30); Protein, Total 6.9 g/dL (6.4-8.2)
== END ==
PROVIDERS: PCP Family Medicine; Referring Provider Surgery; Visit Provider Surgery
DX: K80.20 Calculus of gallbladder without cholecystitis without obstruction (principal)
CPT/HCPCS: 36415; 80076

== ENCOUNTER → 2020-12-23 09:13 | Outpatient (CLI) | payer BC, SELFPAY ==
[2020-12-23 09:39] LABS: Absolute Lymphocyte Count 1.23 X10^3/uL (0.83-4.51); Absolute Neutrophil Count 4.8 X10^3/uL (2.0-7.7); Basophil# 0.04 X10^3/uL; Basophil% 0.6 % (0-1); Eosinophil# 0.12 X10^3/uL; Eosinophils% 1.7 % (0-5); Hematocrit 35.6 % (37-47); Hemoglobin 11.8 g/dL (12.0-15.0); Lymphocyte # 1.23 X10^3/ul (0.83-4.51); Lymphocyte % 17.3 % (19-41); Mean Corp Hgb Conc 33.1 g/dL (32-36); Mean Corpuscular Hgb 30.2 pg (27.0-32.0); Monocyte% 11.3 % (0-10); NRBC Flagged by Analyzer 0 % (0-5); Neutrophil % 67.7 % (47-70); Platelet Count 275 K/mm3 (150-450); RBC Distribution Width CV 12.7 % (11.6-14.6); RBC Distribution Width SD 41.6 fl (35.1-43.9); Red Blood Count 3.91 M/mm3 (4.2-5.4); White Blood Count 7.1 K/mm3 (4.4-11.0)
[2020-12-23 09:49] LABS: Glucose Challenge Gest 1H 50g 101 mg/dL (70-140)
== END ==
PROVIDERS: PCP Family Medicine; Referring Provider Obstetrics & Gynecology; Visit Provider Obstetrics & Gynecology
DX: Z34.80 Encounter for supervision of other normal pregnancy, unspecified trimester (principal)
CPT/HCPCS: 36415; 82950; 85025

== ENCOUNTER → 2020-12-30 14:21 | Outpatient (CLI) | payer BC, SELFPAY ==
--- NOTE | 2020-12-30 14:23 | US_ITS ---
STUDY: SECOND AND THIRD TRIMESTER OBSTETRICAL ULTRASOUND - LIMITED REASON FOR EXAM: Female, 30 years old. . COVID LMP: Unknown. PRIOR ULTRASOUND: 10/27/20 TECHNIQUE: Transabdominal ultrasound evaluation was performed. FINDINGS: There is a single intrauterine fetus. The fetus is in a cephalic presentation. There is demonstrated cardiac activity with a heart rate of 152 bpm. There is a normal amniotic fluid volume. The largest amniotic fluid pocket measures 7.22 cm. The amniotic fluid index (JUAN) is 15.4 cm. The placenta is posterior in location and is not low lying. There are Grade 0 placental changes. The cervix is closed and measures 3.1 cm in length. BIOMETRY: BPD: 7.11 cm: 28 weeks, 3 days HC: 26.01 cm: 28 weeks, 1 days AC: 25.91 cm: 30 weeks, 0 days FL: 5.8 cm: 30 weeks, 2 days Age by LMP: 29 weeks, 5 days. ELISA by LMP: 03/12/21. age by prior US: 28 weeks, 4 days. ELISA by prior US: 03/20/21. age by current US: 28 weeks, 6 days. ELISA by current US: 03/18/21. Estimated weight: 1493 grams, +/- 224 grams, 47 percentile. US/OB Limited With Biometrics IMPRESSION: Single live intrauterine gestation at approximately 28 weeks and 6 days based on the current ultrasound. Electronically Signed: Tera Muniz MD at 9:57 EDT Tel , Service support ,
== END ==
PROVIDERS: PCP Family Medicine; Referring Provider Nurse Practitioner Women's Health; Visit Provider Nurse Practitioner Women's Health
DX: O98.519 Other viral diseases complicating pregnancy, unspecified trimester (principal); U07.1 COVID-19; Z3A.00 Weeks of gestation of pregnancy not specified
CPT/HCPCS: 76816

== ENCOUNTER → 2021-01-20 14:33 | Outpatient (CLI) | payer BC, SELFPAY | PROVIDERS: PCP Family Medicine; Referring Provider Obstetrics & Gynecology; Visit Provider Obstetrics & Gynecology | DX: O26.899 Other specified pregnancy related conditions, unspecified trimester (principal); N89.8 Other specified noninflammatory disorders of vagina; Z3A.00 Weeks of gestation of pregnancy not specified | CPT/HCPCS: 87070; 87205 ==

== ENCOUNTER → 2021-01-27 12:22 | Outpatient (CLI) | payer BC, SELFPAY ==
--- NOTE | 2021-01-27 12:22 | US_ITS ---
STUDY: SECOND AND THIRD TRIMESTER OBSTETRICAL ULTRASOUND - LIMITED REASON FOR EXAM: Female, 30 years old. hx of covid in PRIOR ULTRASOUND: 9..21. TECHNIQUE: Transabdominal TECHNICAL QUALITY: Adequate. FINDINGS: There is a single intrauterine fetus. The fetus is in a cephalic presentation. There is demonstrated cardiac activity with a heart rate of 143 bpm. There is a normal amniotic fluid volume. The largest amniotic fluid pocket measures 5.1 cm. The amniotic fluid index (JUAN) is 15.4 cm. The placenta is posterior in location and is not low lying. There are Grade 3 placental changes. The cervix measures cm in length: 3.5. BIOMETRY: BPD: 83 mm: 33 weeks, 2 days HC: 301 mm: 33 weeks, 2 days AC: 297 mm: 33 weeks, 4 days FL: 65 mm: 33 weeks, 4 days CI: 79 FL/AC: 22 FL/BPD: 79 HC/AC: 1.01 age by current US: 33 weeks, 2 days. ELISA by current US: 11.16.21. Estimated weight: 2266 grams, +/- 340 grams, 44 %. age by prior US: 29 weeks, 6 days. ELISA by prior US: 11..21. Age by LMP: 33 weeks, 5 days. ELISA by LMP: 11..21. US/OB Limited With Biometrics IMPRESSION: There is a single live intrauterine with a heart rate of 143 bpm. age by current US: 33 weeks, 2 days. ELISA by current US: 11.16.21. Estimated weight: 2266 grams, +/- 340 grams, 44 %. Electronically Signed: Jc Azevedo MD at 14:35 EDT , Service support ,
== END ==
PROVIDERS: PCP Family Medicine; Referring Provider Nurse Practitioner Women's Health; Visit Provider Nurse Practitioner Women's Health
DX: O98.519 Other viral diseases complicating pregnancy, unspecified trimester (principal); U07.1 COVID-19; Z3A.33 33 weeks gestation of pregnancy
CPT/HCPCS: 76816

== ENCOUNTER → 2021-02-17 | Outpatient (CLI) | payer BC, SELFPAY | END | disposition home or self-care (01) | LOC: LABSPEC 11:50 | PROVIDERS: PCP Family Medicine; Referring Provider Obstetrics & Gynecology; Visit Provider Obstetrics & Gynecology | DX: Z34.93 Encounter for supervision of normal pregnancy, unspecified, third trimester (principal); Z3A.36 36 weeks gestation of pregnancy | CPT/HCPCS: 87081 ==

== ENCOUNTER 2021-02-23 02:15 | Outpatient (CLI) | payer BC, SELFPAY ==
[2021-02-23 02:20] VITALS: BMI 29.8
[2021-02-23 02:25] VITALS: TEMP 36.4
[2021-02-23 02:26] VITALS: BP 115/76; PULSE 90
[2021-02-23 02:27] VITALS: PULSE 85; O2SAT 99
[2021-02-23 03:41] LABS: ROM Internal Control Test YES-OK TO RESULT pt. (Internal QC); ROM Patient Test Negative (Negative)
--- NOTE | 2021-02-24 04:06 | OB.TRI.PN ---
Progress Notes Date of Service: 02/23/21 Progress Note: Patient presents for triage evaluation secondary to contractions possible rupture membranes FHT: 140 Moderate variability reactive no decelerations category I tracing [place]: Irregular contractions Assessment and plan: No cervical change false labor reactive NST, reassuring maternal and status patient discharged to home to follow-up as scheduled. See problem list details for additional plan information. Laboratory Studies: Laboratory Tests 02/23/21 Range/Units 02:35 Vag Amniotic Fld Detect Negative (Negative) Charges/Coding Procedures Urinary/Genital 52xxx-59xxx: [id number] non-stress test Interp
== END 2021-02-23 04:00 | disposition home or self-care (01) ==
LOC: WPOUT 02:18 → WP 02:19
PROVIDERS: PCP Family Medicine; Visit Provider Obstetrics & Gynecology
DX: O47.9 False labor, unspecified (principal); Z3A.00 Weeks of gestation of pregnancy not specified
CPT/HCPCS: 59025; 59050; 84112; 99218; G0378

== ENCOUNTER 2021-02-24 04:10 | Inpatient (IN) | payer BC, SELFPAY ==
[2021-02-24] VITALS (82 sets, daily range): BP systolic 93–129; BP diastolic 53–86; PULSE 69–124; RESP 16; TEMP 36.1–36.8; O2SAT 83–100; BMI 28.1
--- NOTE | 2021-02-24 04:15 | HP.PCM.OB_ITS ---
HPI - General General Date of Admission: 02/24/21 HPI Narrative CHELSEA WEBB, is a 30 F who presents with clear rupture membranes at 3 AM. She admits starting some contractions now which are increasing in severity denies any vaginal bleeding admits good movement. Maternal Data Information ELISA Calculator Estimated Delivery Date Method Current WG Current Estimate 03/12/21 LMP (Certain) 37w 5d Other Estimates 03/12/21 Ultrasound #1 37w 5d PFSH PFSH Medical History Asthma Gallstones History of tetanus, diphtheria, and acellular pertussis booster vaccination (Tdap) Migraines Norovirus Wears glasses Home Medications multivitamin no.47-iron fum 27 mg-folate no.1 1 mg-dha 300 mg capsule 1 cap PO DAILY 08/03/20 [History Last Taken 02/22/21] Allergy/AdvReac Type Severity Reaction Status Date / Time No Known Allergies Allergy Verified 02/17/21 10:29 Family History Father Hypertension Aunt Breast cancer Grandmother Heart disease Surgical History History of esophagogastroduodenoscopy (EGD) (~05/2015) Hx laparoscopic cholecystectomy Social History adopted: No household members: family housing: house number of children: 1 current occupational status: employed 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 Date Name GA/Weeks Outcome Route Bth Weight Infant Gen Labor Lgth Anesthesia Del Locatn Provider FOB 08/05/18 Bill 40 live - full term 6lbs 9oz Female 3-4 hours epidural [facility] Maninder Delivery Date: 04/08/19 Perineal Extension/lac, 2nd degree; moderate meconium Silvia Benavides Visit Details Expected Delivery Route/Plan Labor Preferences- CB/BF classes: no labor support person: Maninder labor intervention preferences: [] pain management options preferred: epidural cut cord/dad catch: yes : no PP control planned: discussed discussed possible routes of delivery and associated risks: [] special requests: [] Plans covid status: positive november, planning vaccination PP flu vaccine: given tdap vaccine: given rhogam: na LARC form signed: yes movement and labor precautions reviewed. Problem list reviewed and updated with the most current plan of care details and appropriate orders placed. Relevant counseling for the gestational age provided. Continue routine care and follow up unless otherwise noted in visit notes/problem list details OB Flowsheet Initial Weight: 164 lb Date -?-?-?-?-?-?-?-?-?-?-?-?- EGA Weight BP Urine Prot -?-?-?-?-?-?-?-?-?-?-?-?- Glucose FHR FuHt Pres Dilation -?-?-?-?-?-?-?-?-?-?-?-?- Effaced St Visit Note 08/11/20 -?-?-?-?-?-?-?-?-?-?-?-?- 9w 4d 164 lb (+0 oz) 104/82 -?-?-?-?-?-?-?-?-?-?-?-?- 180 -?-?-?-?-?-?-?-?-?-?-?-?- GP - CRL 25mm co nsistent with LMP. 09/09/20 -?-?-?-?-?-?-?-?-?-?-?-?- 13w 5d 164 lb (+0 oz) 110/62 Negative -?-?-?-?-?-?-?-?-?-?-?-?- Negative 165 -?-?-?-?-?-?-?-?-?-?-?-?- SM- no vb lof no regular cramping 10/07/20 -?-?-?-?-?-?-?-?-?-?-?-?- 17w 5d 110/82 110/82 -?-?-?-?-?-?-?-?-?-?-?-?- 150 -?-?-?-?-?-?-?-?-?-?-?-?- SM- no vb crampi ng, RUQ pain and diagnosed with gall stones, will fu with surgery 11/04/20 -?-?-?-?-?-?-?-?-?-?-?-?- 21w 5d 168 lb 2 oz (+4 lb 2 oz) 110/80 Negative -?-?-?-?-?-?-?-?-?-?-?-?- Negative 155 -?-?-?-?-?-?-?-?-?-?-?-?- GP - no LOF, VB, DFM, ctx. s/p lap marlin - feeling much better. Given glucola for 28w. 11/25/20 -?-?-?-?-?-?-?-?-?-?-?-?- 24w 5d 174 lb 8 oz (+10 lb 8 oz) 118/72 Negative -?-?-?-?-?-?-?-?-?-?-?-?- Negative 155 -?-?-?-?-?-?-?-?-?-?-?-?- GP - no LOF, VB, dFM, ctx. GCT next visit. 12/23/20 -?-?-?-?-?-?-?-?-?-?-?-?- 28w 5d 176 lb 8 oz (+12 lb 8 oz) 100/62 Negative -?-?-?-?-?-?-?-?-?-?-?-?- Negative 146 28 -?-?-?-?--?-?-?-?-?-?-?-?- MH-No VB, LOF. G ood FM. 28 wk labs, larc and tdap. Had covid since last visit. Start ASA and growth Q4wk 01/06/21 -?-?-?-?-?-?-?-?-?-?-?-?- 30w 5d 178 lb (+14 lb) 120/84 Negative -?-?-?-?-?-?-?-?-?-?-?-?- Negative 140 30 -?-?-?-?-?-?-?-?-?-?-?-?- SM- no vb lof go od fm no regular ctx. 01/20/21 -?-?-?-?-?-?-?-?-?-?-?-?- 32w 5d 183 lb (+19 lb) 110/80 Negative -?-?-?-?-?-?-?-?-?-?-?-?- Negative 150 32 Cephalic 0 -?-?-?-?-?-?-?-?-?-?-?-?- GP - no LOF, VB, DFM, ctx. Increased discharge - vaginal culture collected. 02/03/21 -?-?-?-?-?-?-?-?-?-?-?-?- 34w 5d 185 lb (+21 lb) 100/64 Negative -?-?-?-?-?-?-?-?-?-?-?-?- Negative 140 35 -?-?-?-?-?-?-?-?-?-?-?-?- SM- no vb lof go od fm no regular ctx. 02/17/21 -?-?-?-?-?-?-?-?-?-?-?-?- 36w 5d 188 lb (+24 lb) 102/80 Negative -?-?-?-?-?-?-?-?-?-?-?-?- Negative 140 37 Cephalic 2 -?-?-?-?-?-?-?-?-?-?-?-?- SM- no vb lof go od fm nor egular ctx gbs done 02/24/21 -?-?-?-?-?-?-?-?-?-?-?-?- 37w 5d -?-?-?-?-?-?-?-?-?-?-?-?- -?-?-?-?-?-?-?-?-?-?-?-?- NST FHR Rate Baby A Baseline: 130 Variability:: Moderate Accelerations:: 15 x 15 Decelerations:: None NST Reactive:: Yes FHR Category:: Category I Uterine Activity:: q3-5 ROS Constitutional Constitutional: Reports systems reviewed and no addt'l complaints, except as documented ENT HEENT: Reports systems reviewed and no addt'l complaints, except as documented Cardiovascular Cardiovascular: Reports systems reviewed and no addt'l complaints, except as documented Respiratory/Chest Respiratory/Chest: Reports systems reviewed and no addt'l complaints, except as documented Gastrointestinal Gastrointestinal: Reports systems reviewed and no addt'l complaints, except as documented and nausea; Denies abdominal pain Genitourinary Genitourinary: Reports systems reviewed and no addt'l complaints, except as documented, contractions Details: present and frequency (regular ) and movement Details: present Musculoskeletal Musculoskeletal: Reports systems reviewed and no addt'l complaints, except as documented Integumentary Integumentary: Reports as per HPI Neurologic Neurologic: Reports systems reviewed and no addt'l complaints, except as documented Endocrine Endocrinology: Reports systems reviewed and no addt'l complaints, except as documented Physical Exam Const alert, oriented x3 and healthy appearing Constitutional Narrative: uncomfortable with contractions HEENT normocephalic and moist oral mucous membranes Head and Scalp: atraumatic Neck full ROM, no lymphadenopathy, supple and thyroid normal General: trachea midline Thyroid: thyroid normal Lymph Lymphatic: no lymphadenopathy noted Chest inspection of chest normal Resp normal respiratory effort Cardio regular rate GI normal to inspection, nondistended, normoactive bowel sounds, soft to palpation and non-tender Inspection: gravid external exam normal Bimanual Exam - Vag & Uterus: uterus non-tender Manual OB Exam: estimated gestational size appropriate, presentation cephalic, dilated, effaced and station Extremity normal to inspection General Extremity: Negative for edema Skin no rashes or lesions noted Neuro deep tendon reflexes 2+ bilaterally Motor Exam: strength 5/5 throughout and clonus absent Psych mental status grossly normal Labs Labs Labs: Blood Type A POSITIVE Antibody Screen NEGATIVE Hct 35.6 % (37-47) L Hgb 11.8 g/dL (12.0-15.0) L Obstetrics US Syphilis Total Ab Non-reactive Rubella IgG Antibody Reactive (Nonreactive) Hep Bs Antigen Non-Reactive (Nonreactive) Neisseria gonorrhoeae DNA (JAYMIE) Negative (Negative) HIV 1&2 Antibody Non-Reactive (Nonreactive) C.trachomatis DNA (PCR) Negative (Negative) Glucose 1 Hr 50 gm 101 mg/dL (70-140) Rhogam given: No Miscellaneous Test Assessment & Plan (1) Active labor at term: COMMENT: srom 3000am admit Epi PRN pitocin PRN (2) COVID-19 affecting , antepartum: COMMENT: Pos at 25 wk, mild sx. ASA daily and growth US q4w at 28 wk, nl growth (3) : QUALIFIERS: Weeks of gestation: 36 weeks Qualified Code(s): Z3A.36 - 36 weeks gestation of COMMENT: genetic- low risk and AFP neg; declines carrier. NL anatomy scan. GBS neg (4) Supervision of other normal : COMMENT: PRR ELISA: 03/12/21 girl Maria Del Carmen PC: Bill Spouse: Maninder
[2021-02-24] MEDS: Lactated Ringers 1,000 ML 50 ML IV (04:45)
[2021-02-24 05:02] LABS: Absolute Lymphocyte Count 1.72 X10^3/uL (0.83-4.51); Absolute Neutrophil Count 4.6 X10^3/uL (2.0-7.7); Basophil# 0.06 X10^3/uL; Basophil% 0.8 % (0-1); Eosinophils% 5.2 % (0-5); Hematocrit 34.9 % (37-47); Hemoglobin 11.6 g/dL (12.0-15.0); Lymphocyte # 1.72 X10^3/ul (0.83-4.51); Lymphocyte % 22.5 % (19-41); Mean Corp Hgb Conc 33.2 g/dL (32-36); Mean Corpuscular Hgb 29.4 pg (27.0-32.0); Mean Corpuscular Volume 88.6 fL (81-99); Monocyte# 0.79 X10^3/uL; Monocyte% 10.3 % (0-10); NRBC Flagged by Analyzer 0 % (0-5); Neutrophil # 4.63 X10^3/uL (2.7-7.7); Neutrophil % 60.4 % (47-70); Platelet Count 236 K/mm3 (150-450); RBC Distribution Width CV 12.9 % (11.6-14.6); RBC Distribution Width SD 42.2 fl (35.1-43.9); Red Blood Count 3.94 M/mm3 (4.2-5.4); White Blood Count 7.7 K/mm3 (4.4-11.0)
--- NOTE | 2021-02-24 06:25 | NURSING ---
pt to begin oxytocin administration at this time, declined RN offer for intermittent ausculation previously
[2021-02-24] MEDS: Oxytocin 30 units/NS 500 ml 30 UNITS/500 ML IV.SOLN IV (06:30)
[2021-02-24] MEDS: Lactated Ringers 500 ML 999 ML IV ×2 (08:15→10:23)
[2021-02-24] MEDS: fentaNYL-bupivacaine (epidural) 100 ML BAG EPIDURAL (09:28)
[2021-02-24] MEDS: Lactated Ringers 1,000 ML 200 ML IV (12:35)
[2021-02-24] MEDS: Oxytocin 30 units/NS 500 ml 30 UNITS/500 ML IV.SOLN 334 UNITS IV (14:13)
--- NOTE | 2021-02-24 14:28 | EX.PCM.OBRPT ---
Assessment & Plan (1) Vaginal delivery: COMMENT: 37 SM SROM girl Maria Del Carmen (2) Active labor at term: COMMENT: srom 3000am admit Epi PRN pitocin PRN (3) COVID-19 affecting , antepartum: COMMENT: Pos at 25 wk, mild sx. ASA daily and growth US q4w at 28 wk, nl growth (4) Cholelithiasis: QUALIFIERS: Cholelithiasis location: gallbladder Cholecystitis presence: without cholecystitis Biliary obstruction: without biliary obstruction Qualified Code(s): K80.20 - Calculus of gallbladder without cholecystitis without obstruction (5) Supervision of other normal : COMMENT: PRR ELISA: 03/12/21 girl Maria Del Carmen PC: Bill Spouse: Maninder (6) : QUALIFIERS: Weeks of gestation: 36 weeks Qualified Code(s): Z3A.36 - 36 weeks gestation of COMMENT: genetic- low risk and AFP neg; declines carrier. NL anatomy scan. GBS neg Maternal Data Information ELISA Calculator Estimated Delivery Date Method Current WG Current Estimate 03/12/21 LMP (Certain) 37w 5d Other Estimates 03/12/21 Ultrasound #1 37w 5d Vaginal Delivery Operative Information Date of Procedure: 02/24/21 Pre-Operative Diagnosis: IAL Post-Operative Diagnosis: same Surgery / Procedure Performed: Spontaneous Vaginal Delivery Type of Anesthesia: Epidural Special Medications: none Estimated Blood Loss: 100 Fluids Replaced: crystalloid Findings Description of Procedure: Patient began pushing and delivered the head in the KAR presentation. The head was delivered atraumatically . The anterior and posterior shoulders delivered without complication followed by the rest of the and the infant was placed on the maternal abdomen. Delayed cord clamping was employed for approximately 60 seconds. Cord was clamped and cut and gentle traction was applied to the cord and the placenta delivered spontaneously immediately following it was noted to be intact with three-vessel cord. The perineum and vagina were inspected and second-degree perineal laceration was repaired in the usual fashion with 3-0 Vicryl Rapide. EBL was 100 cc. Patient and infant tolerated delivery well. Presentation: KAR Amniotic Membrane Rupture Type: Artificial Amniotic Fluid Description: Clear Placental Delivery Description: Spontaneous Placenta Disposition: [facility] Cord Vessel Description: 3 Vessels Cord Entanglement: None Delayed Cord Clamping: Yes Post Vaginal Delivery Medications Given After Delivery: IV Pitocin Episiotomy Description: None Laceration: None Complication Complications: None Procedures Urinary/Genital 52xxx-59xxx: [id number] Vaginal Delivery [facility]
[2021-02-24] MEDS: 0.9% Saline Lock 10 ML Syringe IV (16:59)
[2021-02-24] MEDS: Acetaminophen 500 MG Tablet 1000 MG PO (21:37)
[2021-02-25 00:30] VITALS: BP 113/71; PULSE 79; RESP 16; TEMP 36.3; O2SAT 96
[2021-02-25] MEDS: Naproxen 500 MG Tablet PO (03:23)
[2021-02-25 03:30] VITALS: BP 111/75; PULSE 66; RESP 16; TEMP 36.4; O2SAT 100
--- NOTE | 2021-02-25 07:52 | PCM.DC ---
Discharge Instructions Diet Discharge Diet: No restrictions Activity Discharge Activity: Return to Normal Activity, May Not Drive (while taking narcotic pain medications.) and May Shower May resume sexual activity in: 4-6 weeks Dressing / Incision Call your doctor if your incision/area has: Continuous Slow Oozing, Sudden Increased Bleeding, Increased Pain/ Swelling, Increased Redness and Foul Smelling Discharge Follow Up Care Please Follow Up With: Nancy Michaud MD When: Call [phone] to make an appointment with your doctor in 6 weeks. If you had elevated blood pressure or 4th degree laceration, you will need to be seen in 2 weeks. Test Results: Test results from this visit will be discussed in further detail at your follow-up appointment, if applicable. Discharge Plan Admission Admit Date/Time: 02/24/21 04:10 Primary Reason for Your Visit: delivery Attending Provider: Nancy Michaud Primary Care Provider: Alejandro Major Discharge Orders/Prescriptions Prescriptions: No Action PNV-DHA 27 mg iron-1 mg -300 mg capsule 1 cap PO DAILY RF: 0 Referrals / Follow Up: Alejandro Major MD [Primary Care Provider] - Disposition Disposition (needs filled in before D/C Order can be placed): Home, Self Care
[2021-02-25] MEDS: Acetaminophen 500 MG Tablet 1000 MG PO (07:53)
--- NOTE | 2021-02-25 07:55 | PCM.PN.OB ---
Subjective Subjective Patient doing well without complaints. Tolerating PO. Ambulating and voiding without difficulty. feeding well. Denies chest pain, shortness of breath, calf pain/swelling, fevers, chills, lightheadedness. Objective Data Objective Data Vital Signs: Vital Signs Temp Pulse Resp BP Pulse Ox 97.5 F L 66 16 111/75 100 02/25/21 03:30 02/25/21 03:30 02/25/21 03:30 02/25/21 03:30 02/25/21 03:30 Oxygen Delivery Method Room Air Weight: 180 lb Body Mass Index (BMI) 28.1 Intake & Output: Intake and Output for Last 24 Hours 02/23/21 02/24/21 02/25/21 23:59 23:59 23:59 Intake Total 5150.47 / 5150.47 Output Total 3650 / 3650 Balance 1500.47 / 1500.47 Lab / Micro Data Result Diagrams: 02/24/21 04:40 Micro: Microbiology 02/24/21 04:40 Nasal Secretion SARS-CoV-2 Antigen (Rapid) - Final ROS Constitutional Constitutional: Reports systems reviewed and no addt'l complaints, except as documented Cardiovascular Cardiovascular: Reports systems reviewed and no addt'l complaints, except as documented Respiratory/Chest Respiratory/Chest: Reports systems reviewed and no addt'l complaints, except as documented Gastrointestinal Gastrointestinal: Reports systems reviewed and no addt'l complaints, except as documented Physical Exam Const alert, oriented x3 and no apparent distress HEENT Head and Scalp: atraumatic Resp normal respiratory effort GI soft to palpation and non-tender Bimanual Exam - Vag & Uterus: uterus non-tender Uterus Palpation: uterus fundus firm (below Umbilicus) Assessment & Plan (1) Vaginal delivery: COMMENT: 37 SM SROM girl Maria Del Carmen PLAN: s/p PPD # 1 1. routine post delivery care 2. breast feeding- support given 3. rh positive 4. rubella immune
[2021-02-25 08:09] VITALS: BP 112/75; PULSE 82; RESP 18; TEMP 36.5; O2SAT 98
[2021-02-25 12:00] VITALS: BP 114/69; PULSE 72; RESP 16; TEMP 36.3; O2SAT 97
[2021-02-25] MEDS: Prenatal Vits Tablet 1 TABLET PO (12:47)
[2021-02-25] MEDS: Senna/Docusate Sodium 1 Tablet PO (12:47)
--- NOTE | 2021-02-25 13:48 | NURSING ---
This instructor observed TORIE Rahman administer po meds safely. All student charting reviewed. ZAFAR Self, instructor.
--- NOTE | 2021-03-01 16:18 | NURSING ---
Patient reports doing very well, baby is eating well and is pooping regularly , mother denies questions or concerns.
== END 2021-02-25 16:25 | disposition home or self-care (01) | DRG 806 ==
LOC: WPOUT 04:12 → WP 04:12
PROVIDERS: Admitting Provider Obstetrics & Gynecology; PCP Family Medicine; Visit Provider Obstetrics & Gynecology
DX: O70.1 Second degree perineal laceration during delivery (principal); O26.62 Liver and biliary tract disorders in childbirth; Z37.0 Single live birth; K80.20 Calculus of gallbladder without cholecystitis without obstruction; Z80.3 Family history of malignant neoplasm of breast; Z3A.37 37 weeks gestation of pregnancy; Z82.49 Family history of ischemic heart disease and other diseases of the circulatory system; Z86.16 Personal history of COVID-19
CPT/HCPCS: 59025; 59050; 85025; 86850; 86900; 86901; 87426; 99218; J7120; A4216; G0378

== ENCOUNTER 2021-07-20 16:46 | Outpatient (CLI) | payer BC, SELFPAY | END 2021-07-20 23:59 | disposition home or self-care (01) | LOC: LABSPEC 16:47 | PROVIDERS: PCP Family Medicine; Visit Provider Nurse Practitioner Women's Health | DX: R30.0 Dysuria (principal) | CPT/HCPCS: 87086; 87088; 87186 ==

== ENCOUNTER → 2022-11-13 | Outpatient (CLI) | payer BC, SELFPAY ==
[2022-11-13 12:10] LABS: Absolute Lymphocyte Count 1.41 X10^3/uL (0.83-4.51); Absolute Neutrophil Count 2.7 X10^3/uL (2.0-7.7); Basophil# 0.05 X10^3/uL; Eosinophil# 0.16 X10^3/uL; Eosinophils% 3.3 % (0-5); Hematocrit 42.5 % (37-47); Hemoglobin 13.7 g/dL (12.0-15.0); Lymphocyte # 1.41 X10^3/ul (0.83-4.51); Mean Corp Hgb Conc 32.2 g/dL (32-36); Mean Corpuscular Hgb 29.1 pg (27.0-32.0); Mean Corpuscular Volume 90.2 fL (81-99); Mean Platelet Vol. 10.4 fl (6.2-12.0); Monocyte# 0.57 X10^3/uL; Monocyte% 11.7 % (0-10); NRBC Flagged by Analyzer 0 % (0-5); Neutrophil # 2.65 X10^3/uL (2.7-7.7); Neutrophil % 54.6 % (47-70); Platelet Count 265 K/mm3 (150-450); RBC Distribution Width CV 12.5 % (11.6-14.6); RBC Distribution Width SD 41.1 fl (35.1-43.9); Red Blood Count 4.71 M/mm3 (4.2-5.4); White Blood Count 4.9 K/mm3 (4.4-11.0)
[2022-11-13 12:31] LABS: Vitamin D,25 Hydroxy 38.9 ng/mL
[2022-11-13 13:24] LABS: Anion Gap 5 (5-15); BUN 10 mg/dL (7-18); BUN/Creat Ratio 11.4 RATIO (10-20); Calcium,Total 9.2 mg/dL (8.5-10.1); Chloride 109 mmol/L (98-107); Cholesterol 153 mg/dL (200); Creatinine, Serum 0.88 mg/dL (0.55-1.02); EST Glomerular Filtration Rate 80 mL/min (>60); Est Glom Filt Rate - Afr Amer 97 mL/min (>60); Glucose 86 mg/dL (74-106); High Density Lipoprotein 51 mg/dL; Potassium 4.7 mmol/L (3.5-5.1); Sodium Level 137 mmol/L (136-145); Thyroid Stim Hormone (TSH) 2.62 uIU/mL (0.358-3.74); Triglycerides 131 mg/dL; Very Low Density Lipoprotein 26 mg/dL (5-40)
== END | disposition home or self-care (01) ==
LOC: MTLAB 11:11
PROVIDERS: PCP Family Medicine; Referring Provider Family Medicine; Visit Provider Family Medicine
DX: Z00.00 Encounter for general adult medical examination without abnormal findings (principal); R53.83 Other fatigue
CPT/HCPCS: 36415; 80048; 80061; 82306; 84443; 85025

== ENCOUNTER 2023-03-09 16:15 | Emergency (ER) | payer BC, SELFPAY ==
[2023-03-09 16:16] VITALS: BP 124/90; PULSE 85; RESP 14; TEMP 37.2; O2SAT 100; BMI 34.0
--- NOTE | 2023-03-09 16:25 | ED.VIS.GI ---
HPI HPI - GI History of Present Illness Chief Complaint: Abd Pain Informant: patient Abdominal Pain/Flank Pain Onset: Days (5) Context: Gradual Onset Timing: Intermittent Quality: Dull Location: Epigastric, RUQ and RLQ Worsened by: Nothing Relieved by: Nothing Nausea/Vomiting/Emesis GI Symptom: Positive for Nausea and Vomiting Quality: Positive for Nonbilious; Negative for Blood streaks, Coffee ground or Hematemesis Diarrhea/Melena/Hematochezia GI Symptom: Negative for Diarrhea, Melena or Hematochezia Associated Symptoms Associated Symptoms: Negative for Dysuria, Frequency or Hematuria Narrative Narrative: Patient presents with abdominal pain that has been getting worse over the last 5 days. Patient states it came on gradually. Patient states that it is over the upper abdomen and right side of her abdomen. Patient describes it as dull and aching. Patient states it comes and goes. Patient admits to some nausea and vomiting. Patient admits to decreased appetite. Patient denies any diarrhea, melena, or hematochezia. Patient denies any hematemesis or coffee-ground emesis. Patient denies any urinary complaints. Patient states her last menstrual period was approximately 4 months ago but states she has implanted control which causes her to have irregular periods. [facility] Medical History Asthma Gallstones History of tetanus, diphtheria, and acellular pertussis booster vaccination (Tdap) Migraines Norovirus Wears glasses Home Medications multivitamin no.47-iron fum 27 mg-folate no.1 1 mg-dha 300 mg capsule (PNV-DHA) 1 cap PO DAILY 08/03/20 [History Last Taken 02/23/21 09:00] Nexplanon 68 mg subdermal implant (etonogestrel) 68 mg subdermal ONCE #1 implant 05/26/21 [Clinic Last Taken Unknown] sulfamethoxazole 800 mg-trimethoprim 160 mg tablet 1 tab PO BID #6 TABLETS 03/09/23 [Rx Last Taken Unknown] Allergy/AdvReac Type Severity Reaction Status Date / Time No Known Allergies Allergy Verified 03/09/23 16:15 Family History Father Hypertension Aunt Breast cancer Grandmother Heart disease Surgical History History of esophagogastroduodenoscopy (EGD) (~05/2015) Hx laparoscopic cholecystectomy Social History adopted: No household members: family housing: house number of children: 2 current occupational status: employed 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 pets and animals: Yes Smoking Status: Never smoker second hand exposure: No alcohol intake: never substance use type: does not use caffeine: Yes what type of physical activity do you participate in: none seatbelt use: always do you feel safe at home: Yes additional social history: - [employer] ROS ROS ED Constitutional Constitutional ED: Denies chills or fever(s) Eyes Eyes: Denies blurry vision or change in vision ENT ENT ED: Denies rhinorrhea or sore throat Cardiovascular Cardiovascular: Denies chest pain or palpitations Respiratory/Chest Respiratory/Chest: Denies cough or dyspnea Gastrointestinal Gastrointestinal: Reports abdominal pain, nausea and vomiting Genitourinary Genitourinary ED: Denies dysuria or hematuria Musculoskeletal Musculoskeletal: Denies back pain or neck pain Integumentary Denies abscess or rash Neurologic Neurologic: Reports headache(s); Denies weakness Allergic/Immunologic Allergic/Immunologic ED: Denies mouth swelling or urticaria EXAM Physical Exam Const Vital Signs: 03/09/23 16:16 03/09/23 17:49 03/09/23 18:57 Temperature 98.9 F Temperature Source Temporal Pulse Rate 85 70 72 Respiratory Rate 14 18 18 Blood Pressure 124/90 H 130/86 H 127/88 H Blood Pressure Mean 101 100 101 Pulse Ox 100 99 99 Oxygen Delivery Method Room Air Room Air Room Air 03/09/23 19:02 Temperature Temperature Source Pulse Rate 75 Respiratory Rate 18 Blood Pressure 128/87 H Blood Pressure Mean 100 Pulse Ox 99 Oxygen Delivery Method Room Air Positive well nourished, well developed and obese General Appearance ED: well developed and NAD Nutritional Appearance: obese HEENT Reports moist mucous membranes Neck supple and no JVD Resp normal respiratory effort and clear to auscultation bilaterally Cardio regular rate and regular rhythm GI Palpation: soft and tender epigastric, RLQ and RUQ; Negative for guarding or rebound tenderness present Extremity full ROM Neuro CN's II-XII intact bilaterally, moves all extremities and no sensory deficits noted Sensorium / Orientation: alert Psych mental status grossly normal MDM MDM MDM Narrative Medical decision making narrative: Differential diagnosis includes appendicitis, ectopic , pancreatitis, gastritis, gastroesophageal reflux disease, gastroenteritis, pyelonephritis, urinary tract infection, ovarian torsion, and ovarian cyst. CBC will be obtained to assess for leukocytosis and anemia. Comprehensive metabolic profile will be obtained to assess for hepatic function, renal function, and electrolyte abnormality. Lipase will be obtained to assess for pancreatitis. Serum hCG will be obtained to assess for . Urinalysis will be obtained to assess for urinary tract infection. CT scan of the abdomen pelvis will be obtained to assess for pancreatitis, appendicitis, bowel obstruction, and perforation. Lab Data Attestation: I reviewed the patient's lab results. Lab results narrative: CBC was reviewed and was within normal limits. Comprehensive metabolic profile was reviewed and was within normal limits. Lipase was reviewed and was normal at 35. Serum hCG was reviewed and was negative. Urinalysis was reviewed leukocyte esterase was 500 with 25-50 white blood cells. There are 10-25 epithelial cells. Labs: Laboratory Results - last 24 hr 03/09/23 03/09/23 17:31 17:43 WBC 6.6 RBC 5.22 Hgb 14.9 Hct 45.5 MCV 87.2 MCH 28.5 MCHC 32.7 RDW Std Deviation 37.3 RDW Coeff of Devang 11.9 Plt Count 281 MPV 10.3 Immature Gran % (Auto) 0.500 Neut % (Auto) 58.8 Lymph % (Auto) 28.3 Edgar % (Auto) 8.6 Eos % (Auto) 3.2 Baso % (Auto) 0.6 Absolute Neuts (auto) 3.9 Absolute Lymphs (auto) 1.87 Nucleated RBC % 0 Sodium 138 Potassium 4.0 Chloride 109 H Carbon Dioxide 28.0 Anion Gap 1 L BUN 14 Creatinine 0.86 Estim Creat Clear Calc 74.96 Est GFR (MDRD) Af Amer 99 Est GFR (MDRD) Non-Af 82 BUN/Creatinine Ratio 16.3 Glucose 84 Calcium 9.5 Total Bilirubin 0.40 AST 22 ALT 31 Alkaline Phosphatase 110 Total Protein 7.4 Albumin 3.9 Globulin 3.5 Albumin/Globulin Ratio 1.1 Lipase 35 Serum , Qual NEGATIVE Urine Color Yellow Urine Clarity Sl. Cloudy Urine pH 7.0 Ur Specific [place] 1.010 Urine Protein 15 H Urine Glucose (UA) Normal Urine Ketones Negative Urine Occult Blood Negative Urine Nitrite Negative Urine Bilirubin Negative Urine Urobilinogen Normal Ur Leukocyte Esterase 500 H Urine RBC 0 SEEN Urine WBC 25-50 SEEN Ur Squamous Epith Cells 10-25 SEEN Urine Bacteria RARE Urine Mucus 0 SEEN Radiography Diagnostic Testing: Clinical Impression(s) from Imaging Studies Abdomen/Pelvis CT 03/09/23 18:38 IMPRESSION: No acute findings in the abdomen or pelvis. Electronically Signed: Ricardo Eastman MD at 19:12 EST , CT scan of the abdomen and pelvis was obtained. There is no evidence of appendicitis. There is no free air or free fluid. This was interpreted by the radiologist and was also independently reviewed by myself. Treatment and Re-Evaluation :: Patient was given IV fluids, morphine, and Zofran. Patient declined morphine. Patient states she needed to drive home. Patient was given a dose of Toradol instead. Patient was advised of her findings. Patient was given a dose of Bactrim here. Patient was given a prescription for Bactrim. Urine culture was ordered. Patient was instructed to follow-up with her primary care physician in 5 to 7 days. Patient understood and was agreeable with the plan. All questions were answered. Discharge Plan Triage Chief Complaint: Abd Pain ED Provider: Marbin Haney Dx/Rx/DC Orders Clinical Impression: Urinary tract infection, Abdominal pain Instructions: ED Cystitis Female Adult Prescriptions: New sulfamethoxazole-trimethoprim [sulfamethoxazole-trimethoprim] 800-160 mg tablet 1 tab PO BID Qty: 6 0RF No Action PNV-DHA 27 mg iron-1 mg -300 mg capsule 1 cap PO DAILY Nexplanon 68 mg implant 68 mg subdermal ONCE Qty: 1 0RF Primary Care Provider: Alejandro Major Referrals: Alejandro Major MD [Primary Care Provider] - 5-7 Days Disposition Disposition: Home, Self Care
[2023-03-09 17:40] LABS: Absolute Lymphocyte Count 1.87 X10^3/uL (0.83-4.51); Absolute Neutrophil Count 3.9 X10^3/uL (2.0-7.7); Basophil# 0.04 X10^3/uL; Basophil% 0.6 % (0-1); Eosinophil# 0.21 X10^3/uL; Eosinophils% 3.2 % (0-5); Hematocrit 45.5 % (37-47); Hemoglobin 14.9 g/dL (12.0-15.0); Lymphocyte # 1.87 X10^3/ul (0.83-4.51); Lymphocyte % 28.3 % (19-41); Mean Corp Hgb Conc 32.7 g/dL (32-36); Mean Corpuscular Hgb 28.5 pg (27.0-32.0); Mean Corpuscular Volume 87.2 fL (81-99); Mean Platelet Vol. 10.3 fl (6.2-12.0); Monocyte# 0.57 X10^3/uL; Monocyte% 8.6 % (0-10); NRBC Flagged by Analyzer 0 % (0-5); Neutrophil # 3.89 X10^3/uL (2.7-7.7); Neutrophil % 58.8 % (47-70); Platelet Count 281 K/mm3 (150-450); RBC Distribution Width CV 11.9 % (11.6-14.6); RBC Distribution Width SD 37.3 fl (35.1-43.9); Red Blood Count 5.22 M/mm3 (4.2-5.4); White Blood Count 6.6 K/mm3 (4.4-11.0)
[2023-03-09 17:47] LABS: Mucous, Urine 0 SEEN /hpf (<or=2+)
[2023-03-09 17:49] VITALS: BP 130/86; PULSE 70; RESP 18; O2SAT 99
[2023-03-09] MEDS: 0.9% Normal Saline (1000mL) 1,000 ML 1000 ML IV (17:53)
[2023-03-09] MEDS: Ketorolac 15 MG/ML Vial IV (17:53)
[2023-03-09] MEDS: Ondansetron 4 MG/2 ML Vial IV (17:53)
[2023-03-09 17:59] LABS: ALB/GLOB Ratio 1.1 RATIO (0.9-2.4); AST(SGOT) 22 U/L (15-37); Alanine Aminotransfer ALT/SGPT 31 U/L (13-56); Albumin, Serum 3.9 g/dL (3.2-5.0); Alkaline Phosphatase 110 U/L (45-117); Anion Gap 1 (5-15); BUN 14 mg/dL (7-18); BUN/Creat Ratio 16.3 RATIO (10-20); Calcium,Total 9.5 mg/dL (8.5-10.1); Chloride 109 mmol/L (98-107); Creatinine, Serum 0.86 mg/dL (0.55-1.02); EST Glomerular Filtration Rate 82 mL/min (>60); Est Glom Filt Rate - Afr Amer 99 mL/min (>60); Estimated Creatinine Clearance 74.96 ml/min; Globulin 3.5 g/dL (2.2-4.2); Glucose 84 mg/dL (74-106); Lipase 35 U/L (13-75); Protein, Total 7.4 g/dL (6.4-8.2); Sodium Level 138 mmol/L (136-145)
[2023-03-09 18:16] LABS: Color, Urine Yellow (Yellow); Glucose, Dipstick Normal (Normal); Ketone-Dipstick Negative (Negative); Leukocyte Esterase-Dipstick 500 /ul (Negative); Nitrite-Dipstick Negative (Negative); Occult Blood-Urine Negative /ul (Negative); Protein-Dipstick 15 mg/dl (Negative); Urine Bilirubin Dipstick Negative (Negative); Urine Clarity Sl. Cloudy (Clear); Urine Urobilinogen Normal (Normal)
[2023-03-09 18:32] LABS: Internal QC Validated? YES +Cl - CLEAR BKGD; Pregnancy, Serum, hCG Quali. NEGATIVE Negative
--- NOTE | 2023-03-09 18:38 | CT_ITS ---
INDICATION: Abdominal pain EXAMINATION: CT ABDOMEN AND PELVIS WITH CONTRAST - CT Abdomen And Pelvis W/ Contrast Injection TECHNIQUE: Helically acquired images were obtained of the abdomen and pelvis following IV contrast. A radiation dose optimization technique was used for this scan. IV Contrast dosage and agent: 100 cc Isovue-300 Oral contrast: Yes. COMPARISON: 03/08/2017 FINDINGS: LOWER CHEST: Lung bases are clear. No cardiomegaly or pericardial effusion. LIVER: Homogeneous. No focal mass. GALLBLADDER AND BILIARY TREE: Gallbladder not seen. No intra- or extrahepatic biliary ductal dilation. PANCREAS: No focal cystic or solid mass. SPLEEN: Normal size without focal cystic or solid mass. ADRENAL GLANDS: No nodules. KIDNEYS AND URETERS: Normal renal size and position. No hydronephrosis. PERITONEUM: No ascites or free air. BOWEL: Normal appendix. No stomach or bowel distension. No focal inflammatory change. LYMPH NODES: No enlarged mesenteric or retroperitoneal lymph nodes. VESSELS: Aorta is non-dilated. URINARY BLADDER: Unremarkable. REPRODUCTIVE ORGANS: No pelvic masses. ABDOMINAL WALL: Small fat-containing umbilical hernia. BONES: Unremarkable. CT/Abdomen/Pelvis WITH Contrast IMPRESSION: No acute findings in the abdomen or pelvis. Electronically Signed: Ricardo Eastamn MD at 19:12 [facility] ,
[2023-03-09 18:42] LABS: White Blood Cells 25-50 SEEN /hpf (0-5)
[2023-03-09 18:43] LABS: Bacteria RARE /hpf (None Seen); Red Blood Cells-Urine 0 SEEN /hpf (0-5); Squamous Epithelial Cells - UA 10-25 SEEN /hpf (5-10)
[2023-03-09 18:57] VITALS: BP 127/88; PULSE 72; RESP 18; O2SAT 99
[2023-03-09 19:02] VITALS: BP 128/87; PULSE 75; RESP 18; O2SAT 99
[2023-03-09 19:39] VITALS: BP 133/81; PULSE 74; RESP 14; O2SAT 98
[2023-03-09] MEDS: Smz/Tmp Ds Tablet 1 TABLET PO (19:48)
== END 2023-03-09 19:51 | disposition home or self-care (01) ==
PROVIDERS: Emergency Provider Emergency Medicine; PCP Family Medicine; Visit Provider Emergency Medicine
DX: R10.9 Unspecified abdominal pain (principal); N39.0 Urinary tract infection, site not specified; Z90.49 Acquired absence of other specified parts of digestive tract
CPT/HCPCS: 74177; 80053; 81001; 83690; 84703; 85025; 87086; 87088; 96361; 96374; 96375; 99282; J7030; Q9967; A4216; J2405

== ENCOUNTER 2023-10-25 09:34 | Outpatient (CLI) | payer BC, SELFPAY | END 2023-10-25 23:59 | disposition home or self-care (01) | LOC: LABSPEC 09:35 | PROVIDERS: PCP Family Medicine; Visit Provider Family Medicine | DX: R19.7 Diarrhea, unspecified (principal) | CPT/HCPCS: 87506 ==

== ENCOUNTER → 2024-01-28 | Outpatient (CLI) | payer BC, SELFPAY ==
[2024-02-02 12:09] LABS: HPV APTIMA, High Risk Negative (Negative)
== END | disposition home or self-care (01) ==
LOC: LABSPEC 16:39
PROVIDERS: PCP Family Medicine; Referring Provider Nurse Practitioner Women's Health; Visit Provider Nurse Practitioner Women's Health
DX: Z12.4 Encounter for screening for malignant neoplasm of cervix (principal)
CPT/HCPCS: 87624; 88175; G0145

== ENCOUNTER → 2024-09-29 | Outpatient (CLI) | payer BC, SELFPAY ==
--- NOTE | 2024-09-29 16:01 | CT_ITS ---
PROCEDURE: ABDOMEN WITH IV CONTRAST 09/29/2024 REASON FOR EXAM: EPIGASTRIC AREA MASS, SUSPECT HERNIA TECHNIQUE: Abdomen CT with intravenous and oral contrast. Multiplanar and multisequence images were obtained. One or more dose reduction techniques were used (e.g., Automated exposure control, adjustment of the mA and/or kV according to patient size, use of iterative reconstruction technique. PATIENT PREPARATION: Per protocol CONTRAST: 94 mL Isovue-300 RADIATION DOSE SUMMARY: CTDlvol: 16.6 mGy DLP: 669 mGycm COMPARISON: CT abdomen and pelvis on 03/09/2023 FINDINGS: Lung bases: Unremarkable. Liver: Normal size. No mass. Gallbladder: Surgically absent. Spleen: Normal size. Pancreas: Normal size without evidence of mass surrounding inflammation or ductal dilation. Adrenals: Unremarkable Kidneys: No hydronephrosis or stone. Bowel: Oral contrast opacifies the stomach and small bowel. No obstruction or inflammation within the visualized bowel. Normal appendix. Lymph nodes: Unremarkable Vasculature: Unremarkable Reproductive: Intrauterine device is incompletely visualized. There is suggestion of a hypodense lesion in the right adnexa which is incompletely imaged, with imaged portion measuring up to 3.4 cm in size. Bones: Unremarkable. Soft tissues: There is a tiny amount of fat extending towards the umbilicus, without evidence of fascial defect, similar to prior. CT/Abdomen WITH IV Contrast IMPRESSION: 1. No findings to explain the patient's reported symptoms, to include no evide nce of abdominal wall hernia. 2. Suggestion of a hypodense lesion in the right adnexa measuring at least 3.4 cm, incompletely imaged. Consider pelvic ultrasound for further evaluation. Reading Location: [id number]
== END | disposition home or self-care (01) ==
LOC: CT 15:52
PROVIDERS: PCP Family Medicine; Referring Provider Family Medicine; Visit Provider Family Medicine
DX: R19.06 Epigastric swelling, mass or lump (principal)
CPT/HCPCS: 74160; Q9967; A4216